=== PATIENT | female | born 1940 | race Caucasian/White ===

== ENCOUNTER → 2023-07-27 07:42 | Outpatient (REF) | payer OTHER, SELFPAY ==
[2023-07-27 09:06] LABS: % Basophils 0.9 % (0-2); % Lymphocytes 40.9 % (20.5-51.1); % Monocytes 14.6 % (1.7-9.3); % Neutrophils 43.6 % (42.2-75.2); Absolute Lymphocytes 1.3 10^3/uL (1.2-3.4); Absolute Monocytes 0.5 10^3/uL (0.1-0.6); Absolute Neutrophils 1.4 10^3/uL (1.4-6.5); Hematocrit 30.1 % (37.0-47.0); Hemoglobin 9.8 g/dL (12.0-16.0); Mean Corp Hgb Conc. 32.6 g/dL (33.0-37.0); Mean Corpuscular Hgb 30.3 pg (27.0-31.0); Mean Corpuscular Volume 93.2 fL (81.0-99.0); Nucleated Red Blood Cells % 0 %; Platelet Count 129 10^3/uL (130-400); Red Blood Cell Count 3.23 10^6/uL (4.20-5.40); Red Cell Dist. Width 17.2 % (11.5-14.5); White Blood Cell Count 3.2 10^3/uL (4.8-10.8)
== END ==
LOC: REG 07:42
PROVIDERS: ATTENDING PHYSICIAN Internal Medicine Hematology & Oncology; FAMILY PHYSICIAN Student in an Organized Health Care Education/Training Program
DX: D46.9 Myelodysplastic syndrome, unspecified (principal); D72.819 Decreased white blood cell count, unspecified; C91.Z0 Other lymphoid leukemia not having achieved remission
CPT/HCPCS: 36415; 85025

== ENCOUNTER → 2023-08-17 07:28 | Outpatient (REF) | payer OTHER, SELFPAY ==
[2023-08-17 08:20] LABS: % Basophils 0.6 % (0-2); % Immature Granulocytes 0.6 % (0-0.5); % Lymphocytes 45.8 % (20.5-51.1); % Monocytes 17.8 % (1.7-9.3); % Neutrophils 35.2 % (42.2-75.2); Absolute Lymphocytes 1.5 10^3/uL (1.2-3.4); Absolute Monocytes 0.6 10^3/uL (0.1-0.6); Absolute Neutrophils 1.2 10^3/uL (1.4-6.5); Hematocrit 33.3 % (37.0-47.0); Hemoglobin 11.3 g/dL (12.0-16.0); Mean Corp Hgb Conc. 33.9 g/dL (33.0-37.0); Mean Corpuscular Hgb 30.6 pg (27.0-31.0); Mean Corpuscular Volume 90.2 fL (81.0-99.0); Mean Platelet Volume 9.6 fL (7.4-10.4); Nucleated Red Blood Cells % 0 %; Platelet Count 127 10^3/uL (130-400); Red Blood Cell Count 3.69 10^6/uL (4.20-5.40); Red Cell Dist. Width 16.7 % (11.5-14.5); White Blood Cell Count 3.3 10^3/uL (4.8-10.8)
[2023-08-17 09:15] LABS: ALT (SGPT) 18 U/L (0-35); AST (SGOT) 34 U/L (14-36); Alkaline Phosphatase 58 U/L (38-126); Blood Urea Nitrogen 20 mg/dl (7-17); Calcium 8.9 mg/dl (8.4-10.2); Carbon Dioxide 28 mmol/L (22-30); Chloride 104 mmol/L (98-107); Glucose 113 mg/dl (70-99); Potassium 4.1 mmol/L (3.5-5.1); Sodium 137 mmol/L (135-145); Total Bilirubin 1.5 mg/dl (0.2-1.3); Total Protein 6.9 g/dl (6.3-8.2); eGFR > 60.00
== END ==
LOC: REG 07:28
PROVIDERS: ATTENDING PHYSICIAN Internal Medicine Hematology & Oncology; FAMILY PHYSICIAN Student in an Organized Health Care Education/Training Program
DX: D72.819 Decreased white blood cell count, unspecified (principal); D46.9 Myelodysplastic syndrome, unspecified; C91.Z0 Other lymphoid leukemia not having achieved remission
CPT/HCPCS: 36415; 80053; 85025

== ENCOUNTER → 2023-09-07 07:29 | Outpatient (REF) | payer OTHER, SELFPAY ==
[2023-09-07 08:56] LABS: % Basophils 0.8 % (0-2); % Immature Granulocytes 0.8 % (0-0.5); % Lymphocytes 33.5 % (20.5-51.1); % Monocytes 15.4 % (1.7-9.3); % Neutrophils 49.5 % (42.2-75.2); Absolute Lymphocytes 1.3 10^3/uL (1.2-3.4); Absolute Monocytes 0.6 10^3/uL (0.1-0.6); Absolute Neutrophils 1.9 10^3/uL (1.4-6.5); Hematocrit 37.6 % (37.0-47.0); Mean Corp Hgb Conc. 31.9 g/dL (33.0-37.0); Mean Corpuscular Hgb 29.9 pg (27.0-31.0); Mean Corpuscular Volume 93.8 fL (81.0-99.0); Mean Platelet Volume 9.8 fL (7.4-10.4); Nucleated Red Blood Cells % 0 %; Platelet Count 141 10^3/uL (130-400); Red Blood Cell Count 4.01 10^6/uL (4.20-5.40); Red Cell Dist. Width 16.3 % (11.5-14.5); White Blood Cell Count 3.8 10^3/uL (4.8-10.8)
[2023-09-07 09:26] LABS: ALT (SGPT) 21 U/L (0-35); AST (SGOT) 38 U/L (14-36); Albumin 4.1 g/dl (3.5-5.0); Alkaline Phosphatase 57 U/L (38-126); Blood Urea Nitrogen 14 mg/dl (7-17); Calcium 9.4 mg/dl (8.4-10.2); Carbon Dioxide 32 mmol/L (22-30); Chloride 103 mmol/L (98-107); Glucose 123 mg/dl (70-99); Potassium 4.5 mmol/L (3.5-5.1); Sodium 140 mmol/L (135-145); Total Bilirubin 1.5 mg/dl (0.2-1.3); eGFR 56.25
== END ==
LOC: REG 07:29
PROVIDERS: ATTENDING PHYSICIAN Internal Medicine Hematology & Oncology; FAMILY PHYSICIAN Student in an Organized Health Care Education/Training Program
DX: D72.819 Decreased white blood cell count, unspecified (principal); D46.9 Myelodysplastic syndrome, unspecified; C91.Z0 Other lymphoid leukemia not having achieved remission
CPT/HCPCS: 36415; 80053; 85025

== ENCOUNTER → 2023-09-14 07:42 | Outpatient (REF) | payer OTHER, SELFPAY ==
[2023-09-14 08:16] LABS: % Basophils 0.6 % (0-2); % Immature Granulocytes 0.3 % (0-0.5); % Lymphocytes 37.9 % (20.5-51.1); % Monocytes 13.2 % (1.7-9.3); Absolute Lymphocytes 1.2 10^3/uL (1.2-3.4); Absolute Monocytes 0.4 10^3/uL (0.1-0.6); Absolute Neutrophils 1.5 10^3/uL (1.4-6.5); Hematocrit 35.7 % (37.0-47.0); Hemoglobin 11.7 g/dL (12.0-16.0); Mean Corp Hgb Conc. 32.8 g/dL (33.0-37.0); Mean Corpuscular Hgb 30.2 pg (27.0-31.0); Mean Corpuscular Volume 92.2 fL (81.0-99.0); Mean Platelet Volume 9.7 fL (7.4-10.4); Nucleated Red Blood Cells % 0 %; Platelet Count 127 10^3/uL (130-400); Red Blood Cell Count 3.87 10^6/uL (4.20-5.40); Red Cell Dist. Width 16.3 % (11.5-14.5); White Blood Cell Count 3.2 10^3/uL (4.8-10.8)
[2023-09-14 09:24] LABS: ALT (SGPT) 18 U/L (0-35); AST (SGOT) 34 U/L (14-36); Albumin 4.1 g/dl (3.5-5.0); Alkaline Phosphatase 53 U/L (38-126); Blood Urea Nitrogen 15 mg/dl (7-17); Calcium 9.3 mg/dl (8.4-10.2); Carbon Dioxide 30 mmol/L (22-30); Chloride 100 mmol/L (98-107); Glucose 118 mg/dl (70-99); Potassium 4.3 mmol/L (3.5-5.1); Sodium 139 mmol/L (135-145); Total Bilirubin 1.2 mg/dl (0.2-1.3); Total Protein 6.9 g/dl (6.3-8.2); eGFR 56.25
== END ==
LOC: REG 07:42
PROVIDERS: ATTENDING PHYSICIAN Internal Medicine Hematology & Oncology; FAMILY PHYSICIAN Student in an Organized Health Care Education/Training Program
DX: D72.819 Decreased white blood cell count, unspecified (principal); D46.9 Myelodysplastic syndrome, unspecified; C91.Z0 Other lymphoid leukemia not having achieved remission
CPT/HCPCS: 36415; 80053; 85025

== ENCOUNTER → 2023-09-21 07:25 | Outpatient (REF) | payer OTHER, SELFPAY ==
[2023-09-21 09:45] LABS: % Basophils 0.6 % (0-2); % Immature Granulocytes 0.3 % (0-0.5); % Lymphocytes 40.2 % (20.5-51.1); % Monocytes 15.6 % (1.7-9.3); % Neutrophils 43.3 % (42.2-75.2); Absolute Lymphocytes 1.3 10^3/uL (1.2-3.4); Absolute Monocytes 0.5 10^3/uL (0.1-0.6); Absolute Neutrophils 1.4 10^3/uL (1.4-6.5); Hematocrit 38.9 % (37.0-47.0); Hemoglobin 12.2 g/dL (12.0-16.0); Mean Corp Hgb Conc. 31.4 g/dL (33.0-37.0); Mean Corpuscular Hgb 29.5 pg (27.0-31.0); Mean Platelet Volume 10.3 fL (7.4-10.4); Nucleated Red Blood Cells % 0 %; Platelet Count 136 10^3/uL (130-400); Red Blood Cell Count 4.14 10^6/uL (4.20-5.40); Red Cell Dist. Width 15.5 % (11.5-14.5); White Blood Cell Count 3.2 10^3/uL (4.8-10.8)
[2023-09-21 10:03] LABS: ALT (SGPT) 20 U/L (0-35); AST (SGOT) 40 U/L (14-36); Albumin 4.3 g/dl (3.5-5.0); Alkaline Phosphatase 51 U/L (38-126); Blood Urea Nitrogen 18 mg/dl (7-17); Calcium 9.3 mg/dl (8.4-10.2); Carbon Dioxide 29 mmol/L (22-30); Chloride 103 mmol/L (98-107); Glucose 126 mg/dl (70-99); Sodium 138 mmol/L (135-145); Total Bilirubin 1.3 mg/dl (0.2-1.3); Total Protein 7.2 g/dl (6.3-8.2); eGFR 56.25
== END ==
LOC: REG 07:25
PROVIDERS: ATTENDING PHYSICIAN Internal Medicine Hematology & Oncology; FAMILY PHYSICIAN Student in an Organized Health Care Education/Training Program
DX: D72.819 Decreased white blood cell count, unspecified (principal); D46.9 Myelodysplastic syndrome, unspecified; C91.Z0 Other lymphoid leukemia not having achieved remission
CPT/HCPCS: 36415; 80053; 85025

== ENCOUNTER → 2023-10-05 07:38 | Outpatient (REF) | payer OTHER, SELFPAY ==
[2023-10-05 08:56] LABS: % Basophils 0.8 % (0-2); % Immature Granulocytes 0.4 % (0-0.5); % Lymphocytes 42.7 % (20.5-51.1); % Monocytes 15.8 % (1.7-9.3); % Neutrophils 40.3 % (42.2-75.2); Absolute Lymphocytes 1.1 10^3/uL (1.2-3.4); Absolute Monocytes 0.4 10^3/uL (0.1-0.6); Absolute Neutrophils 1.1 10^3/uL (1.4-6.5); Hematocrit 35.4 % (37.0-47.0); Hemoglobin 11.7 g/dL (12.0-16.0); Mean Corp Hgb Conc. 33.1 g/dL (33.0-37.0); Mean Corpuscular Hgb 30.1 pg (27.0-31.0); Nucleated Red Blood Cells % 0 %; Platelet Count 125 10^3/uL (130-400); Red Blood Cell Count 3.89 10^6/uL (4.20-5.40); Red Cell Dist. Width 15.1 % (11.5-14.5); White Blood Cell Count 2.6 10^3/uL (4.8-10.8)
[2023-10-05 10:27] LABS: ALT (SGPT) 22 U/L (0-35); AST (SGOT) 39 U/L (14-36); Albumin 4.3 g/dl (3.5-5.0); Alkaline Phosphatase 52 U/L (38-126); Blood Urea Nitrogen 20 mg/dl (7-17); Calcium 9.4 mg/dl (8.4-10.2); Carbon Dioxide 29 mmol/L (22-30); Chloride 103 mmol/L (98-107); Glucose 110 mg/dl (70-99); Potassium 4.3 mmol/L (3.5-5.1); Sodium 138 mmol/L (135-145); Total Bilirubin 1.2 mg/dl (0.2-1.3); Total Protein 7.3 g/dl (6.3-8.2); eGFR > 60.00
== END ==
LOC: REG 07:38
PROVIDERS: ATTENDING PHYSICIAN Internal Medicine Hematology & Oncology; FAMILY PHYSICIAN Student in an Organized Health Care Education/Training Program
DX: D72.819 Decreased white blood cell count, unspecified (principal); D46.9 Myelodysplastic syndrome, unspecified; C91.Z0 Other lymphoid leukemia not having achieved remission
CPT/HCPCS: 36415; 80053; 85025

== ENCOUNTER → 2023-11-01 07:11 | Outpatient (REF) | payer OTHER, SELFPAY ==
[2023-11-01 08:42] LABS: Hematocrit 32.2 % (37.0-47.0); Hemoglobin 10.8 g/dL (12.0-16.0); Mean Corp Hgb Conc. 33.5 g/dL (33.0-37.0); Mean Corpuscular Hgb 29.3 pg (27.0-31.0); Mean Corpuscular Volume 87.5 fL (81.0-99.0); Mean Platelet Volume 10.5 fL (7.4-10.4); Platelet Count 108 10^3/uL (130-400); Red Blood Cell Count 3.68 10^6/uL (4.20-5.40); Red Cell Dist. Width 14.6 % (11.5-14.5); White Blood Cell Count 2.5 10^3/uL (4.8-10.8)
[2023-11-01 09:17] LABS: ALT (SGPT) 36 U/L (0-35); AST (SGOT) 59 U/L (14-36); Albumin 4.1 g/dl (3.5-5.0); Alkaline Phosphatase 55 U/L (38-126); Blood Urea Nitrogen 12 mg/dl (7-17); Calcium 9.4 mg/dl (8.4-10.2); Carbon Dioxide 30 mmol/L (22-30); Chloride 100 mmol/L (98-107); Glucose 115 mg/dl (70-99); Sodium 137 mmol/L (135-145); Total Bilirubin 1.2 mg/dl (0.2-1.3); Total Protein 7.1 g/dl (6.3-8.2); eGFR > 60.00
[2023-11-01 10:42] LABS: Absolute Neutrophils -Man Diff 0.6 10^3/uL (1.4-6.5); Band Neutrophils 2 % (0-3); Lymphocytes 56 % (20-51); Monocytes 17 % (2-9); Platelets Checked Yes; Segmented Neutrophils 24 % (42-75)
[2023-11-01 10:43] LABS: Normal RBC Morphology Yes; Total Cells Counted 100
== END ==
LOC: REG 07:11
PROVIDERS: ATTENDING PHYSICIAN Internal Medicine Hematology & Oncology
DX: D72.819 Decreased white blood cell count, unspecified (principal); D46.9 Myelodysplastic syndrome, unspecified; C91.Z0 Other lymphoid leukemia not having achieved remission
CPT/HCPCS: 36415; 80053; 85025

== ENCOUNTER 2023-11-17 21:53 | Inpatient (IN) | payer OTHER, SELFPAY ==
[2023-11-17 16:42] VITALS: BP 198/80
--- NOTE | 2023-11-17 17:15 | ED.GENMED ---
History of Present Illness
General
Chief Complaint: Chest Pain
Source: patient
Exam Limitations: none
Time Seen by Provider: 11/17/23 17:15
Travel History
Have you had any contact with someone who has COVID-19?: No
Do you have any symptoms of coronavirus? Fever > 100 degrees, chills, cough, shortness of breath, sore throat, loss of taste or smell, muscle aches, or headache?: No
History of Present Illness
History of Present Illness:
83-year-old female with relatively sudden onset of right sided back pain. Started at 1 PM. Nonexertional and nontraumatic. No pleuritic pain no shortness of breath. Nausea associated with this. Denies chest pain shortness of breath or other
complaints. Symptoms are still present. Some bandlike pain across her upper abdomen.
Past History
Past History
ED Past Medical History: HTN, Hypercholesterolemia, Other (right knee replacement) and Other (Chronic low white blood cell count)
ED Past Surgical History: Appendectomy, Gynecological (Tubal ligation, oophorectomy) and Orthopedic (Right total knee replacement, right rotator cuff repair.)
Social History
Tobacco: Non-smoker
Alcohol: Occasional
Drug: None
Personal:
Living: with family
Employment: Retired
Family History
Family History: Other (Noncontributory)
Review of Systems
Review of Systems
All Other Systems: Not applicable
Constitutional: Denies fever
Respiratory: Denies trouble breathing
Cardiac: Denies chest pain
Phy Exam
Physical Exam
Physical Exam:
GENERAL: Alert and oriented in no apparent distress
EYE: Orbits normal.
NECK: Supple, no thyroid palpable
ENT: Pharynx without erythema
CARDIAC: Regular rate and rhythm without any obvious murmurs.
LUNGS: Clear breath sounds,normal
ABDOMEN: Soft, without focal tenderness or distention. No pulsatile mass
NEUROLOGICAL: Alert and oriented , grossly non-focal
SKIN: Warm and dry, no rash or lesion, no discoloration, skin intact.
MUSCULOSKELETAL: No edema,no deformity.Good color
PSYCH: Normal and appropriate interaction.
Scores
Heart Score for Chest Pain Patients
STEMI patient?: No
History: Slightly or Non-Suspicious
ECG: Normal
Age: >/= 65 years
Risk Factors: 1 or 2 Risk Factors
Troponin: </= Normal Limit
Heart Score for Chest Pain Patients: 3
Heart Score Risk: 2.5% MACE over next 6 weeks
Course
Orders/Labs/Results
Orders:
Orders
11/17/23 16:40
Electrocardiogram (*1) Urgent
Reason for Study: Chest Pain
EKG- Treatment ONCE
11/17/23 17:28
Cardiac Monitoring- Treatment ONCE
IV Insert/Care/Rem.- Treatment PRN
Pulse Ox/cont/shift [RESP] Stat
Quantity: 1
11/17/23 17:29
Complete Blood Count/With Diff Urgent
Comprehensive Metabolic Panel Urgent
D-Dimer Urgent
Lipase Urgent
Troponin I Urgent
11/17/23 18:03
CXR2 [CR Chest - 2 Views ] Urgent
Comment:
Reason For Exam: Right back pain
11/17/23 18:23
Urinalysis Reflex To Culture Urgent
Date Specimen was Collected: 11/17/23
Time Specimen was Collected: 18:22
11/17/23 19:27
CT Chest/abd/pelvis Angio W/wo Urgent
Comment:
Reason For Exam: Right mid back pain sudden in nature with radiatio
11/17/23 19:48
EKG- Treatment ONCE
11/17/23 20:20
EKG [Electrocardiogram (*1)] Urgent
Reason for Study: Chest Pain
11/17/23 20:44
Troponin I Urgent
11/17/23 21:15
Piperacillin/Tazo 3.375 Gram [Zosyn] 3.375 gram in 50 ml IV NOW
Abnormal Lab Results
11/17/23 11/17/23
17:29 18:23
WBC 3.5 L 10^3/uL
(4.8-10.8)
RBC 3.60 L 10^6/uL
(4.20-5.40)
Hgb 10.5 L g/dL
(12.0-16.0)
Hct 31.6 L %
(37.0-47.0)
RDW 14.8 H %
(11.5-14.5)
Absolute Lymphs (auto) 0.5 L 10^3/uL
(1.2-3.4)
Neutrophils % 77.9 H %
(42.2-75.2)
Lymphocytes % 14.4 L %
(20.5-51.1)
Glucose 154 H mg/dl
(70-99)
Total Bilirubin 1.5 H mg/dl
(0.2-1.3)
AST 39 H U/L
(14-36)
Urine Ketones Trace A
(Negative)
11/17/23 17:29
11/17/23 17:29
Vital Signs
Initial and Last Documented VS:
Initial Vital Signs
Temp Pulse Resp BP Pulse Ox
98.7 F 53 18 198/80 97
11/17/23 16:42 11/17/23 16:42 11/17/23 16:42 11/17/23 16:42 11/17/23 16:42
Last Documented Vital Signs
Temp Pulse Resp BP Pulse Ox
98.7 F 54 22 166/68 97
11/17/23 16:42 11/17/23 18:30 11/17/23 18:30 11/17/23 18:00 11/17/23 18:30
MDM/Problems Addressed
Differential Diagnosis Includes:
Patient with relatively sudden onset of right back pain. Extends from the mid back down towards her lumbar area. No CVA tenderness. Also some mild bandlike pain across her upper abdomen. There is no pulsatile mass. No shearing pain. No chest
pain. Cleocin clinically looks stable and nontoxic. Large differential including cardiac which is relatively unlikely. EKG is stable. Troponin pending. They will be repeated in 3 hours. Gallbladder is theoretically on the list although she has
absolutely no right upper quadrant tenderness. LFTs and lipase pending. Kidney stone will be on the list. PE and dissection on the list although relatively low on the list. D-dimer is normal. Somewhat reluctant to do a CT angiography given her
myelodysplastic disease however this will be reevaluated when all her other testing is back
*Radiology
Radiology exam reviewed: radiology read reviewed (Acute cholecystitis. Coronary artery calcification)
*Pulse Oximetry
Patient hypoxic: no
*EKG
Interpreted by ED Provider?: Yes
Interpretation: abnormal
Heart Rate: 53
Rate: bradycardiac
Rhythm: sinus
Reading: left axis deviation
Interval: normal interval
QRS Pattern: left vent hypertrophy
Ischemia: non-specific ST changes
*Critical Care Note
Total Time (30-74mins, 75-104mins- exclusive of procedures): Not Applicable
Data Reviewed
Review of Other/Old Records Reveals: Labs, Records and Testing
Update Note
Update Note:
Patient with acute cholecystitis. Biotics and admission. Repeat EKG stable
ED Attending Note
-
Portions of this chart may have been created with voice recognition software.� Occasional wrong word or��sound alike� substitutions may have occurred due to the inherent limitations of voice recognition software.
Discharge Plan
Departure
Patient Disposition: Admit
Date of Disposition: 11/17/23
Time of Disposition: 21:17
Presentation/result/management discussed w/ accepting MD/DO: Hospitalist
Discharge Problem:
Acute cholecystitis
Prescriptions:
No Action
Advanced Stress Tabs
1 tab PO DAILY
lovastatin 20 MG tablet
20 mg PO DAILY
atenolol 50 MG tablet
50 mg PO DAILY
calcium citrate-vitamin D3 [Citracal + D Maximum] 1 EACH tablet
1 ea PO Daily
valacyclovir 500 mg Tablet
1,000 mg PO BID Qty: 18 0RF
Mag&Al/Sim/Diphenhyd/Lidocaine [First-Mouthwash Blm Suspension]
5 ml PO QIDPRN PRN (Reason: sore mouth) Qty: 200 0RF
Referrals:
Yg Scott DO [Family Provider] -
Interventions
Interventions:
*Risk Screen - Suicide Last Done: 11/17/23 17:21
*General Assessment Last Done: 11/17/23 17:21
*Neglect/Abuse Screening Last Done: 11/17/23 17:21
ED- Fall Risk Assessment Last Done: 11/17/23 17:21
*ED COVID-19 Vaccine History Last Done: 11/17/23 16:42
ED- Cardiac Assessment Last Done: 11/17/23 17:21
Discharge Date and Time
Print Language: MONGOLIAN
[2023-11-17 17:26] VITALS: BP 188/73
[2023-11-17 17:48] LABS: % Basophils 0.3 % (0-2); % Immature Granulocytes 0.3 % (0-0.5); % Lymphocytes 14.4 % (20.5-51.1); % Monocytes 7.1 % (1.7-9.3); % Neutrophils 77.9 % (42.2-75.2); Absolute Lymphocytes 0.5 10^3/uL (1.2-3.4); Absolute Monocytes 0.3 10^3/uL (0.1-0.6); Absolute Neutrophils 2.8 10^3/uL (1.4-6.5); Hematocrit 31.6 % (37.0-47.0); Hemoglobin 10.5 g/dL (12.0-16.0); Mean Corp Hgb Conc. 33.2 g/dL (33.0-37.0); Mean Corpuscular Hgb 29.2 pg (27.0-31.0); Mean Corpuscular Volume 87.8 fL (81.0-99.0); Mean Platelet Volume 9.4 fL (7.4-10.4); Nucleated Red Blood Cells % 0 %; Platelet Count 145 10^3/uL (130-400); Red Cell Dist. Width 14.8 % (11.5-14.5); White Blood Cell Count 3.5 10^3/uL (4.8-10.8)
[2023-11-17 17:59] LABS: D-Dimer 0.48 ug/mlFEU (0.00-0.50)
[2023-11-17 18:00] VITALS: BP 166/68
[2023-11-17 18:01] LABS: ALT (SGPT) 22 U/L (0-35); AST (SGOT) 39 U/L (14-36); Albumin 4.1 g/dl (3.5-5.0); Alkaline Phosphatase 61 U/L (38-126); Blood Urea Nitrogen 17 mg/dl (7-17); Carbon Dioxide 28 mmol/L (22-30); Chloride 104 mmol/L (98-107); Glucose 154 mg/dl (70-99); Potassium 4.4 mmol/L (3.5-5.1); Sodium 140 mmol/L (135-145); Total Bilirubin 1.5 mg/dl (0.2-1.3); Total Protein 7.4 g/dl (6.3-8.2); eGFR > 60.00
[2023-11-17 18:12] LABS: Troponin I < 0.012 ng/ml
[2023-11-17 18:15] LABS: Lipase 82 U/L (23-300)
[2023-11-17 18:46] LABS: Urine Albumin Negative (Neg - Trace); Urine Bilirubin Negative (Negative); Urine Character Clear (Clear); Urine Color Yellow; Urine Glucose Negative (Negative); Urine Ketone Trace (Negative); Urine Leukocyte Negative (Negative); Urine Nitrite Negative (Negative); Urine Occult Blood Negative (Negative); Urine Specific Gravity 1.015 (<1.030); Urine Urobilinogen Negative (Neg - 1+)
[2023-11-17 20:00] VITALS: BP 173/65
--- NOTE | 2023-11-17 21:16 | HPS.HSE ---
Addendum entered and electronically signed by Moris Fofana MD 11/18/23 09:25:
I saw and examined the patient independently.
The Director Medical Economics's note was reviewed and I agree with the note, assessment and plan except where noted below.
Comment: This is an 83-year-old female with history of MDS, who presents with sudden onset of right upper quadrant/right side abdominal pain with associated nausea and vomiting, low-grade temp here. She is tender to palpation in the right upper
quadrant. She has a mildly elevated bilirubin as well as a elevated WBC from her baseline of 2-[address] scan with dilated, thickened gallbladder wall as well as stones in the neck of the gallbladder all concerning for acute cholecystitis.
N.p.o., IV fluids, IV antibiotics.
Risks/Benefits/Alternatives, expected postoperative course and possible complications (bleeding, infection, injury to surrounding structures, acute/chronic pain) discussed at length with patient and the family. All questions answered. Consent
obtained, but they are going to discuss with family their final plan before moving forward with surgery definitively.
I spent roughly 75 minutes in total for the care of this patient today including direct patient care and counseling, reviewing labs, imaging, coordination of care, as well as documentation.
Original Note:
Family Physician
-
Family Physician: Yg Scott, DO
Chief Complaint
-
abdominal pain
History of Present Illness
83-year-old female with past medical history of hypertension, hyperlipidemia relatively sudden onset of right sided back pain radiating to her middle back and underneath the breast/epigastric area. she vomited once. she just got over COVID. finished
the course of paxlovid. denied fever, chills, chest pain, sob. denied WAGNER, dizzy or syncopal episode. denied dysuria or hematuria.
CT highly suspicious for acute cholecystitis. Zosyn in ER admitting for further management
Medical History
Past Medical History
Past Medical History: Reports Other
Additional Past Medical History:
Hypertension
Lumbar radiculopathy
Hyperlipidemia
Leukopenia right shoulder arthritis
Osteoporosis
Anxiety
Myelodysplastic syndrome
Past Surgical History: Reports Other
Additional Past Surgical History:
Total knee replacement bilateral
Appendectomy
Right shoulder repair
Social History
Tobacco: Non-smoker
Alcohol: None
Drug: None
Family History
Family History: Not pertinent
Allergies / Home Medications
Allergies reflects when Allergies were last updated in [facility].
Home Medications with original date entered in [facility]
Allergy/Medication List:
Allergies
Allergy/AdvReac Type Severity Reaction Status Date / Time
morphine AdvReac projectile Verified 06/20/23 09:08
vomiting;just
didn't
feel right
Home Medications
Advanced Stress Tabs 1 tab PO DAILY Supplement 02/25/15
atenolol 50 mg tablet 50 mg PO DAILY Blood Pressure 02/25/15
lovastatin 20 mg tablet 20 mg PO DAILY High Cholesterol 02/25/15
calcium citrate 315 mg calcium-vitamin D3 6.25 mcg (250 unit) tablet (Citracal + Vitamin D Maximum) 1 ea PO Daily Supplement 06/24/18
Mag&Al/Sim/Diphenhyd/Lidocaine [First-Mouthwash Blm Suspension] 5 ml PO QIDPRN PRN sore mouth #200 mL 06/26/23
valacyclovir 500 mg tablet 1,000 mg (2 x 500 mg) PO BID #18 tabs 06/26/23
Review of Systems
-
Constitutional: Reports No Symptoms
EENT: Reports No Symptoms
Respiratory: Reports No Symptoms
Cardiac: Reports No Symptoms
Abdomen/GI: Reports Abdominal Pain, Nausea and Vomiting
: Reports No Symptoms
Musculoskeletal: Reports No Symptoms
Skin: Reports No Symptoms
Neurological: Reports No Symptoms
Endocrine: Reports No Symptoms
Hematologic/Lymphatic: Reports No Symptoms
Psych: Reports No Symptoms
Physical Exam
Vital Signs
Vital Signs
Temp Pulse Resp BP Pulse Ox
98.7 F 54 22 166/68 97
11/17/23 16:42 11/17/23 18:30 11/17/23 18:30 11/17/23 18:00 11/17/23 18:30
Physical Exam
General: Well Developed, Well Nourished and No Apparent Distress
HEENT: NormoCephalic, Moist mucous membranes and Atraumatic
Respiratory: Clear
Cardiac: S1/S2 and Regular Rhythm; No Murmur or Rub
GI: Soft, Non Tender, Non Distended and Normal Bowel Sounds; No Organomegaly
Rectal: Deferred by Provider
Musculoskeletal: No Clubbing, No Cyanosis and No Edema
Skin: No Rash
Neuro: AO x 3 and Nonfocal/grossly intact
Psych: Calm
Laboratory Results
-
11/17/23 17:29
11/17/23 17:29
Laboratory Results
Total Bilirubin 1.5 mg/dl (0.2-1.3) H 11/17/23 17:29
AST 39 U/L (14-36) H 11/17/23 17:29
ALT 22 U/L (0-35) 11/17/23 17:29
Alkaline Phosphatase 61 U/L (38-126) 11/17/23 17:29
Troponin I < 0.012 ng/ml 11/17/23 17:29
Lipase 82 U/L (23-300) 11/17/23 17:29
Data Reviewed
-
Lab Data: Labs Reviewed by me
Impression/Plan
-
#acute cholecystitis
-NPO
-Zosyn continued
-surgery consulted
-chest abdomen pelvis CTA pending
-chest x ray No acute cardiopulmonary process.
-Dilaudid as needed for pain
-Zofran as needed for nausea vomiting
-Fluids continued for hydration
#anemia of chronic disease
-hgb 10.5
-no active bleeding
-ctm
# History of MDS
-WBC stable at 3.5
# Essential hypertension
-Hold atenolol
# Hypercholesterolemia
-hold statin
Full code
DVT prophylaxis: scd
[2023-11-17 21:17] LABS: Troponin I 0.013 ng/ml
--- NOTE | 2023-11-17 21:36 | W.PN.UPDATE ---
Update Note
Progress Note Update
This note serves as an addendum to the H&P by public health engineer ROBERT Roya HICKS
HPI
83F HX HTN, HLD, MDS see at ER for evaluation for abrupt onset of R sided uppwer back pain;
R sided upper back pain
Abrupt onset
Described as bandlike pain across her upper abdomen.
No precipitating event noted
Not exertional
Denied trauma
Denied SoB or pleuritic quality
S/P Covid 2 weeks ago
s/p paxlovid
PHX
Neutropenic fever
MDS with
Chronic, Progressive Leukopenia
Bilateral Lower Extremity Edema
Essential hypertension
Hypercholesterolemia
Rt knee replacement
Allergies
Allergy/AdvReac Type Severity Reaction Status Date / Time
morphine AdvReac projectile Verified 06/20/23 09:08
vomiting;just
didn't
feel right
Home Medications
Advanced Stress Tabs 1 tab PO DAILY Supplement 02/25/15
atenolol 50 mg tablet 50 mg PO DAILY Blood Pressure 02/25/15
lovastatin 20 mg tablet 20 mg PO DAILY High Cholesterol 02/25/15
calcium citrate 315 mg calcium-vitamin D3 6.25 mcg (250 unit) tablet (Citracal + Vitamin D Maximum) 1 ea PO Daily Supplement 06/24/18
Mag&Al/Sim/Diphenyl/Lidocaine [First-Mouthwash Blm Suspension] 5 ml PO QIDPRN PRN sore mouth #200 mL 06/26/23
valacyclovir 500 mg tablet 1,000 mg (2 x 500 mg) PO BID #18 tabs 06/26/23
SHx
Tobacco: Non-smoker
Alcohol: Occasional
Drug: None
Personal:
Living: with family
Employment: Retired
FHX
Noncontributory
Reviewed VS: Afebrile Bradycardic HR 50s on BB BP 198/60 --> 165/68
PE
Gen: Not toxic looking
HEENT: anicteric
Neck: supple
Lungs: CTA
Cor: RRR S1 S2 no ST
Abdomen: Soft, without focal tenderness or distention.
[employer] [facility] OPERATOR: AAO3 NFND
MS: no edema
Psych: appropriate interaction.
Data
WCC 3.5
Hgb 10.5 - baseline hi 10s tp low 11s
DD 0.48
nl BMP
Lipase 82
TB 1.5
AST 39
CXR: No acute cardiopulmonary process.
CT CAP
No evidence of Ao dissection
Cholelithiasis, distended GB. POS PCF and inflammatory stranding. GB hyperemia: Suspect acute cholecystitis
Colonic diverticulosis
ASSESSMENT & PLAN
Suspect acute calculus cholecystitis
TB 1.2
- BCxs
- agree with empiric Zosyn
- NPO and IVF
- IV Dilaudid PRN - hold for AMS
- Anti emetics PRN
- GS consult
Current WCC 3.5 is suspect RELATIVE leucocytosis due to acute calculus cholecystitis
HX chr leucopenia due to MDS
- trend WCC
SB due to beta blockade
Essential hypertension
- held atenolol
Hypercholesterolemia
- held statin
S/p Paxolvid for acute Covid 2 weeks ago
DVT Px: SCD
Code: ful code
IP MS
[2023-11-17] MEDS: ZOSYN 50 IV (22:15)
[2023-11-17 23:00] VITALS: BP 174/69; BMI 26.0
[2023-11-17] MEDS: TYLENOL 650 MG PO (23:20)
[2023-11-17] MEDS: NSS 1000 IV (23:21)
--- NOTE | 2023-11-17 23:33 | PTCARENOTE ---
Pt. arriving from ED to [facility] around 2250 via stretcher and able to walk to room bed with steady gait. Pt. A&Ox3, in NAD, states / abd pain - given medication see MAR - even and unlabored breathing on RA, and VSS with hypertension. Pt. oriented
to room and hospital policies, bed locked and in lowest position, side rails in place, call light and belongings within reach, and questions/concerns addressed at time of assessment.
[2023-11-18] VITALS (9 sets, daily range): BP systolic 112–154; BP diastolic 47–87
[2023-11-18] MEDS: ZOFRAN 4 MG IV (04:31)
[2023-11-18] MEDS: TYLENOL 650 MG PO ×2 (04:37→18:25)
[2023-11-18] MEDS: ZOSYN 50 IV ×3 (05:04→17:31)
[2023-11-18 06:55] LABS: Hematocrit 28.6 % (37.0-47.0); Hemoglobin 9.5 g/dL (12.0-16.0); Mean Corp Hgb Conc. 33.2 g/dL (33.0-37.0); Mean Corpuscular Hgb 29.1 pg (27.0-31.0); Mean Corpuscular Volume 87.7 fL (81.0-99.0); Mean Platelet Volume 10.1 fL (7.4-10.4); Platelet Count 131 10^3/uL (130-400); Red Blood Cell Count 3.26 10^6/uL (4.20-5.40); Red Cell Dist. Width 15.2 % (11.5-14.5); White Blood Cell Count 6.2 10^3/uL (4.8-10.8)
[2023-11-18 07:22] LABS: ALT (SGPT) 22 U/L (0-35); AST (SGOT) 36 U/L (14-36); Albumin 3.6 g/dl (3.5-5.0); Alkaline Phosphatase 52 U/L (38-126); Blood Urea Nitrogen 14 mg/dl (7-17); Calcium 9.1 mg/dl (8.4-10.2); Carbon Dioxide 25 mmol/L (22-30); Chloride 101 mmol/L (98-107); Direct Bilirubin 0.5 mg/dl (0.0-0.4); Estimated Creatinine Clearance 45 ml/min; Glucose 164 mg/dl (70-99); Potassium 3.9 mmol/L (3.5-5.1); Sodium 136 mmol/L (135-145); Total Bilirubin 1.8 mg/dl (0.2-1.3); Total Protein 6.5 g/dl (6.3-8.2); eGFR > 60.00
[2023-11-18] MEDS: NSS 1000 IV ×2 (11:00→18:04)
--- NOTE | 2023-11-18 11:44 | W.PN.HOSP.TC ---
Addendum entered and electronically signed by Willa Cloud MD 11/18/23 12:20:
d/w GI Dr Marie., Given pt going for OR today for gallstone dianne, GI would not be able to perform EGD. Will reconsult GI tmr after OR to address the stomach mass.
Original Note:
Today's Communication/Plan
-
see A/P
Assessment / Plan
Assessment / Plan
HPI: 83-year-old female with past medical history of hypertension, hyperlipidemia; p/w right sided Abd pain with radiation to her middle back. She vomited once. She just got over COVID and finished the course of paxlovid.
CT highly suspicious for acute cholecystitis. Zosyn in ER admitting for further management
A/P:
# acute gallstone cholecystitis
for perc cholecystectomy today by GS
# History of MDS
# anemia of chronic disease
hgb 10.5
no active bleeding
Cont to monitor CBC
# Essential hypertension
resume HEEL SEATER atenolol when able
# Hypercholesterolemia
hold statin
# Incidental finding of gastric mass, slightly increased from prior and highly suspicious for neoplasm.
GI CS for eval of EUS/biopsy
pt will also likely need Onc eval
Full code
DVT prophylaxis: scd
Anticipated Discharge: 24 - 48 hours
Subjective/Interval History
-
Date of Service: November 18, 2023
Objective Data
-
Labs:
Laboratory Results
11/18/23
06:26
WBC 6.2
Hgb 9.5 L
Hct 28.6 L
Plt Count 131
Sodium 136
Potassium 3.9
Chloride 101
Carbon Dioxide 25
BUN 14
Creatinine 0.8
Glucose 164 H
Calcium 9.1
Total Bilirubin 1.8 H
AST 36
ALT 22
Alkaline Phosphatase 52
Vital Signs:
Vital Signs
Temp Pulse Resp BP Pulse Ox
37.8 C 61 18 131/54 96
11/18/23 07:48 11/18/23 07:48 11/18/23 07:48 11/18/23 07:48 11/18/23 07:48
I&O
11/17/23 11/18/23 11/19/23
06:59 06:59 06:59
Intake Total 1170 / 1170
Balance 1170 / 1170
Review of Systems
-
Abdomen/GI: Reports Abdominal Pain (RUQ)
Physical Exam
-
General: Well Developed, Well Nourished, No Apparent Distress, Comfortable and Conversant; Negative Respiratory Distress
HEENT: Normocephalic, Atraumatic, Nose Appears Normal and Ears Appear Normal; Negative Oxygen
Respiratory: Clear to Auscultation and Non Labored Respirations; Negative Accessory Resp Muscle Use
Cardiac: Regular Rhythm and S1/S2
GI: Soft, Nondistended, Normal Bowel Sounds and Tender (Mild, RUQ)
Skin: Warm and Dry
Neuro: Awake and Alert
Psych: Calm and Intact Judgement/Insight
Data Reviewed
-
CT Scan: Report Reviewed by me and Discussed with Patient
Labs: Labs Reviewed by me
--- NOTE | 2023-11-18 11:45 | W.SUR.PREOP ---
Pre-Operative Surgical Note
-
I have examined this patient prior to the performance of the scheduled procedure.
The patient's condition is unchanged from the time of the current History and
Physical and the patient is able to undergo the scheduled procedure.
After further discussion with the patient and family, patient now amenable to surgery. Will move forward with cholecystectomy today.
--- NOTE | 2023-11-18 14:07 | PTCARENOTE ---
Patient transported to OR for laparoscopic cholecystectomy
--- NOTE | 2023-11-18 17:09 | W.IMMPOSTOP ---
Surgical Immed Post Op Note
-
Primary Surgeon: Moris Fofana MD
Assisting Surgeon: None
Pre-op Diagnosis: Acute cholecystitis
Post-op Diagnosis: Gangrenous cholecystitis, choledocholithiasis
Procedure Performed:
1. Laparoscopic lysis of adhesions
2. Laparoscopic cholecystectomy with cholangiogram
Anesthesia Type: General
Specimen / Cultures: Gallbladder and contents
Estimated Blood Loss: 23 cc
Complications: None
Operative Findings: Acute gangrenous cholecystitis. Performed a top-down cholecystectomy. No definitive cystic artery identified. The cystic duct was cannulated with a cholangiocatheter and IOC was performed. Normal biliary anatomy, diminutive,
tortuous cystic duct, dilated CBD with 2 large filling defects consistent with choledocholithiasis. These appeared to be nonocclusive as there was free flow of contrast into the duodenum. A 19 [place] round Ellis drain was placed in the right upper
quadrant. Surgiflo was used along the gallbladder bed to assist with hemostasis.
POST OP PLAN:
Imaging: None
Labs: Routine AM
Diet: Okay for clears, n.p.o. at midnight for possible ERCP tomorrow. Will place GI consult.
Analgesia: Tylenol 650mg q6 Isela, Alana 5mg q6 PRN, Dilaudid 0.5mg q2h PRN
Neuro/vascular checks: q4h
AC/AP: Hold Therapeutic AC, Ok for DVT PPx
Activity: Ad Cony
Wound/Incisions/Drains: Routine, FRANK to bulb suction.
Abx: Continue antibiotics x 7 days.
Dispo: RNF
--- NOTE | 2023-11-18 17:41 | SUR.PHASEI ---
patient received sleepy but restless, vss, temp down from preop. skin very warm and dry, throws covers off, wants to get up. reoriented to time and place, seems to understand but tries to get OOB again. now at 1742 - sleeps comfortably, softwick
dressing applied around FRANK drain for small amount of bloody drainage. Ice pack to abd for comfort. patient came from OR with incontinent diaper - dry currently
--- NOTE | 2023-11-18 17:47 | OR.RPT ---
Operative Report
Operative Report
Patient Name: Rufina Melendez
: 1940
Date of Operation: 11/18/2023
Preoperative Diagnosis: Acute cholecystitis
Postoperative Diagnosis: Gangrenous cholecystitis, choledocholithiasis
Procedure(s):
Laparoscopic lysis of adhesions
Laparoscopic Cholecystectomy with Cholangiogram
Surgeon(s):
Dr. Fofana
Latent Fingerprint Examiner(s):
None
Anesthesia: General
Estimated Blood Loss: 23 cc
Urine Output: None
Drains/Lines/Implants: None
Specimens:
1. Gallbladder and contents
HPI/Surgical Indications:
This is an 83-year-old female with a history of mild dysplastic syndrome who presented to our ER with a 1 day history of right upper quadrant abdominal pain in the setting of a recent COVID infection. Exam, labs and imaging are consistent with acute
cholecystitis. Risks/Benefits/Alternatives were discussed at length, and the patient agreed to proceed with surgery.
Operative Findings: Acute gangrenous cholecystitis. Performed a top-down cholecystectomy. No definitive cystic artery identified. The cystic duct was cannulated with a cholangiocatheter and IOC was performed. Normal biliary anatomy, diminutive,
tortuous cystic duct, dilated CBD with 2 large filling defects consistent with choledocholithiasis. These appeared to be nonocclusive as there was free flow of contrast into the duodenum. A 19 Kiswahili round Ellis drain was placed in the right upper
quadrant. Surgiflo was used along the gallbladder bed to assist with hemostasis.
Procedure Description:
The patient was brought to the Operating Room and placed in the supine position with one arm tucked. Following uneventful induction of general endotracheal anesthesia, an orogastric tube was placed. The abdomen was prepped and draped in the usual
sterile fashion. A timeout was performed confirming the procedure, consent, and that IV antibiotics were infused and sequential compression devices were confirmed to be on. The abdomen was entered using a left subcostal Veress technique which
required 1 pass followed by the right periumbilical 11 mm Optiview trocar. Pneumoperitoneum to 15 mmHg pressure was obtained without difficulty. The patient was positioned in reverse Trendelenberg and rotated with the right side up slightly. There
were some unexpected adhesions between the omentum and the anterior abdominal wall particularly in the left upper quadrant which obscured our review of the left upper quadrant Veress entry site. These were taken down with LigaSure energy device.
The needle entry site was identified and no inadvertent injury was seen. The stomach otherwise looked normal. We then turned our attention to the gallbladder which looked frankly necrotic with patchy areas of green and black over the anterior
surface. 2 5mm trocars were then placed along the right subcostal margin, followed by a 12 mm epigastric port. The gallbladder was emptied using a decompressing needle through the fundus of the gallbladder with evacuation of hydrops before A
locking grasping forceps was placed on the fundus of the gallbladder where it was then retracted cephalad and to the right. Using appropriate grasping instruments, the peritoneum overlying the triangle of Calot was incised and extended superiorly on
both the anterior and posterior gallbladder milligan. There was a significant inflammation in the cystic triangle but we were able to extend our medial/anterior peritoneal flap cephalad and get into the space between the gallbladder and the cystic
bed. We then did a top-down cholecystectomy staying close to the gallbladder down to the infundibulum. The cystic duct was identified but no cystic artery was. An Endoloop was passed around the gallbladder and ligated proximally. A ductotomy was
made and a cholangiocatheter on an Nguyen clamp was inserted into the cystic duct. A C-arm was draped and brought into the field. An intra-operative cholangiogram was performed and was noted to have:
2 large nonocclusive filling defects in the distal biliary tree
Some mild CBD/biliary dilation
Brisk flow of contrast into the duodenum
Normal biliary anatomy
The catheter was then removed and the cystic duct was controlled with an additional 0 PDS Endoloop and divided. The gallbladder was freed from the liver using electrocautery. There was some spillage of bile, black stones but these were all
removed. A 4 x 4 gauze sponge was also placed into the abdomen to help with collecting entrapping the bile and stones. This was removed. The gallbladder bed was inspected and excellent hemostasis was obtained, with the help of some Surgiflo. The
gallbladder was extracted through the 12 mm trocar site using an endocatch bag. The abdomen was again irrigated and excellent hemostasis was assured. A 19 Kiswahili round Ellis drain was then introduced through the right most lateral port and passed
across the liver bed. This was secured to the skin with a 2-0 nylon suture. All remaining trocars were then removed and the pneumoperitoneum was evacuated. The 12 and 11 mm trocar sites was closed using 0 PDS suture. All trocar sites were closed
at the skin level using 4-0 Monocryl followed by Dermabond. Overall, the patient tolerated the procedure well and was taken to the Recovery Room postoperatively in stable condition.
I was the attending physician and performed the procedure with no assistance. I was present for all portions of the case
Moris Fofana MD
--- NOTE | 2023-11-18 18:18 | PTCARENOTE ---
Received patient from PACU in bed; Surgical site assessed with ROTOFORMER BACKTENDER; FRANK drain to bulb suction RLQ, sanguinous output; Three lap sites and one puncture site, open to air with glue; Ice pack to abdomen currently; Patient denies pain; Patient denies
nausea/vomiting; Patient alert to self, place, and time; Verbalized understanding to utilize call proctor, verbalized understanding to not get up without assistance following surgery; IVF infusing; Patient on 2L NC; Bed in lowest position, wheels
locked; Call proctor within reach; Assessment ongoing
[2023-11-18] MEDS: DILAUDID 0.5 MG IV (19:56)
[2023-11-19] MEDS: ZOSYN 50 IV ×5 (00:12→23:25)
[2023-11-19 06:00] LABS: % Basophils 0.2 % (0-2); % Immature Granulocytes 0.5 % (0-0.5); % Monocytes 6.7 % (1.7-9.3); % Neutrophils 83.6 % (42.2-75.2); Absolute Lymphocytes 0.6 10^3/uL (1.2-3.4); Absolute Monocytes 0.4 10^3/uL (0.1-0.6); Absolute Neutrophils 5.1 10^3/uL (1.4-6.5); Hematocrit 26.5 % (37.0-47.0); Hemoglobin 8.8 g/dL (12.0-16.0); Mean Corp Hgb Conc. 33.2 g/dL (33.0-37.0); Mean Corpuscular Hgb 29.3 pg (27.0-31.0); Mean Corpuscular Volume 88.3 fL (81.0-99.0); Mean Platelet Volume 10.5 fL (7.4-10.4); Nucleated Red Blood Cells % 0 %; Platelet Count 122 10^3/uL (130-400); White Blood Cell Count 6.1 10^3/uL (4.8-10.8)
[2023-11-19] MEDS: NSS 1000 IV (06:13)
[2023-11-19 06:34] LABS: ALT (SGPT) 37 U/L (0-35); AST (SGOT) 44 U/L (14-36); Albumin 3.3 g/dl (3.5-5.0); Alkaline Phosphatase 47 U/L (38-126); Blood Urea Nitrogen 14 mg/dl (7-17); Calcium 8.6 mg/dl (8.4-10.2); Carbon Dioxide 29 mmol/L (22-30); Chloride 103 mmol/L (98-107); Estimated Creatinine Clearance 40 ml/min; Glucose 149 mg/dl (70-99); Magnesium 2.4 mg/dl (1.6-2.3); Potassium 4.2 mmol/L (3.5-5.1); Sodium 138 mmol/L (135-145); Total Bilirubin 1.5 mg/dl (0.2-1.3); Total Protein 6.3 g/dl (6.3-8.2); eGFR > 60.00
[2023-11-19 07:48] VITALS: BP 111/81
[2023-11-19] MEDS: TYLENOL 650 MG PO (08:15)
[2023-11-19] MEDS: DILAUDID 0.5 MG IV (09:11)
--- NOTE | 2023-11-19 09:12 | W.PN.GS2 ---
Today's Communication / Plan
-
-- NPO for ERCP, GI consulted
-- Pain control: Tylenol and IV Dilaudid PRN, added Tramadol for when taking PO
-- Lovenox for DVT
-- Home medications per primary
Assessment / Plan
-
Patient is an 83 yo F POD#1 s/p laparoscopic cholecystectomy with IOC. Choledocholithiasis found on IOC, GI consulted.
Recovering well. No major postoperative concerns. Choledocholithiasis identified on IOC as detailed above, GI consult noted.
-- NPO for ERCP, GI consulted
-- Pain control: Tylenol and IV Dilaudid PRN, added Tramadol for when taking PO
-- Abx: Zosyn
-- Lovenox for DVT
-- Home medications per primary
Subjective Data
-
Date of Service: November 19, 2023
Reports RUQ discomfort particularly with taking a deep breath. Pain and symptoms different from presentation; back pain on presentation has resolved. No nausea or vomiting. No dizziness or lightheadedness. No fevers. Minimal ambulation.
Objective Data
-
Intake and Output
11/18/23 11/19/23 11/20/23
06:59 06:59 06:59
Intake Total 1170 / 1170 2130 / 2130
Output Total 350 / 350
Balance 1170 / 1170 1780 / 1780
Intake:
Oral fluids 480 / 480 335 / 335
IV fluids (Total) 640 / 640 1645 / 1645
nss 75 / 75
zosyn 50 / 50
IV piggybacks 50 / 50 150 / 150
Output:
Drain Output (Total) 50 / 50
Right Lower Abdomen 50 / 50
Urine, Voided 300 / 300
Other:
Number of approximated MODERATE 2 1
amounts of urine
Number of approximated LARGE 1
amounts of urine
How many times incontinent 1
SMALL amount urine
Number of immeasurable emeses? 1
Vital Signs
Temp Pulse Resp BP Pulse Ox
98.4 F 56 17 111/81 97
11/19/23 07:48 11/19/23 07:48 11/19/23 07:48 11/19/23 07:48 11/19/23 08:00
Lab Results
11/19/23 05:26
11/19/23 05:26
Calcium 8.6 mg/dl (8.4-10.2) 11/19/23 05:26
Magnesium 2.4 mg/dl (1.6-2.3) H 11/19/23 05:26
Total Bilirubin 1.5 mg/dl (0.2-1.3) H 11/19/23 05:26
Direct Bilirubin 0.5 mg/dl (0.0-0.4) H 11/18/23 06:26
AST 44 U/L (14-36) H 11/19/23 05:26
ALT 37 U/L (0-35) H 11/19/23 05:26
Alkaline Phosphatase 47 U/L (38-126) 11/19/23 05:26
Total Protein 6.3 g/dl (6.3-8.2) 11/19/23 05:26
Albumin 3.3 g/dl (3.5-5.0) L 11/19/23 05:26
Physical Exam
-
Gen: NAD
Abd: soft, mild tenderness primarily at FRANK site, ND, non-peritoneal, incisions c/d/i - no erythema, ecchymosis or drainage, FRANK serosang
--- NOTE | 2023-11-19 11:10 | CON.GI ---
Addendum entered and electronically signed by Petrona Natarajan MD 11/19/23 15:00:
I saw and examined the patient.
The CARDIAC RN's note was reviewed and I agree with the note.
Comment: This is a 83-year-old female who presented with symptoms of epigastric and right upper quadrant pain and also recently completed Paxlovid for COVID infection. She was noted to have acute calculus cholecystitis on imaging, also had a fever
and she had a lap cholecystectomy yesterday with IOP cholangiogram which showed CBD stones and we were consulted for ERCP. She was also noted to have an incidental gastric mass slightly increased in size when compared to prior CT in 2022.
Assessment and plan1. acute calculus cholecystitis status post Lap CCY 11/18/2023 continue antibiotics, she does have choledocholithiasis discussed with Dr. Pratt for ERCP in a.m.
2. Also incidental gastric mass noted on CT slightly increased in size from May 2023 will also have EGD prior to ERCP
Addendum entered and electronically signed by YURIY Bhatti 11/19/23 12:11:
updated pt and family plan now for EGD/ERCP tomorrow ok for low fat diet, advised to stop eating if abdominal pain with eating
Original Note:
Consultation
-
Date/Time Consultation Requested: 11/18/23 1715
Date/Time Consultation Performed: 11/18/23 1110
Requesting Provider: Moris Fofana MD
Performing Provider: YURIY Liriano, Petrona Natarajan MD
Reason for Consultation: + intra op cholangiogram, gastirc mass
Medical History
Chief Complaint / HPI
Chief Complaint: abdominal pain
History of Present Illness:
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 CT on admission with
concern for acute calculus cholecystitis and also noted gastric mass slightly increased from prior concern for neoplasm. After admission also noted with fever 102.3. Pt went to OR for lap dianne with lysis of adhesion and but noted with dilated
CBD with 2 large filling defects c/w choledocholithiasis. On admission WBC stable with initial LFT's adry 1.5, AST 39, ALT 22, alk phos 61 then minimal risk to bili 1.5, AST 44, ALT 37, and alk phos 47 after admission.
At this time pt admits to recent back pain and noted fever after admission. She has had some intentional wt loss and recent diarrhea with covid symptoms. She denies dysphagia, GERD, nausea, vomiting, hematemesis, constipation or rectal
bleeding. No prior EGD or colonoscopy in past.
Past Medical History
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
Past Surgical History: Cholecystectomy
Social History
Tobacco: Non-Smoker
Alcohol: Occasional (social )
Drug: None
Living: Alone
Employment: Retired
Family History
Family History: Other (mother with bladder CA, no family hx colon, esophageal, gastric or panc CA)
Allergies / Home Medications
Allergy/AdvReac Type Severity Reaction Status Date / Time
morphine AdvReac projectile Verified 11/17/23 23:48
vomiting;just
didn't
feel right
�Medication �Instructions �Recorded
atenolol 50 mg tablet 50 mg PO DAILY Blood Pressure 02/25/15
lovastatin 20 mg tablet 20 mg PO DAILY High Cholesterol 02/25/15
calcium citrate 315 mg 1 ea PO Daily Supplement 06/24/18
calcium-vitamin D3 6.25 mcg (250
unit) tablet (Citracal + Vitamin D
Maximum)
Review of Systems
-
History Source: Patient
Constitutional: Reports Weight Loss (intentional wt loss )
EENT: Reports No Symptoms
Respiratory: Reports No Symptoms
Cardiac: Reports No Symptoms
Abdomen/GI: Reports Abdominal Pain (still with pain today worse with deep breath ) and Diarrhea (with covid )
Musculoskeletal: Reports Other (back pain, chronic shoulder pain )
Skin: Reports No Symptoms
Neurological: Reports Weakness
Endocrine: Reports No Symptoms
Hematologic/Lymphatic: Reports No Symptoms
Vital Signs
Temp Pulse Resp BP Pulse Ox
98.4 F 56 17 111/81 97
11/19/23 07:48 11/19/23 07:48 11/19/23 07:48 11/19/23 07:48 11/19/23 08:00
Physical Exam
Exam
General: Well Developed, Well Nourished and No Apparent Distress
HEENT: Normocephalic and Anicteric
Respiratory: Clear
Cardiac: Regular Rhythm
GI: Soft, Non Tender and Non Distended
Musculoskeletal: No Clubbing and No Cyanosis
Skin: Warm and Dry
Neuro: Awake, Alert and AO x 3
Psych: Calm
Results
WBC 6.1 10^3/uL (4.8-10.8) 11/19/23 05:26
Hgb 8.8 g/dL (12.0-16.0) L 11/19/23 05:26
Hct 26.5 % (37.0-47.0) L 11/19/23 05:26
MCV 88.3 fL (81.0-99.0) 11/19/23 05:26
Plt Count 122 10^3/uL (130-400) L 11/19/23 05:26
Absolute Neuts (auto) 5.1 10^3/uL (1.4-6.5) 11/19/23 05:26
Sodium 138 mmol/L (135-145) 11/19/23 05:26
Potassium 4.2 mmol/L (3.5-5.1) 11/19/23 05:26
Chloride 103 mmol/L (98-107) 11/19/23 05:26
Carbon Dioxide 29 mmol/L (22-30) 11/19/23 05:26
BUN 14 mg/dl (7-17) 11/19/23 05:26
Creatinine 0.9 mg/dL (0.6-1.0) 11/19/23 05:26
Calcium 8.6 mg/dl (8.4-10.2) 11/19/23 05:26
Total Bilirubin 1.5 mg/dl (0.2-1.3) H 11/19/23 05:26
AST 44 U/L (14-36) H 11/19/23 05:26
ALT 37 U/L (0-35) H 11/19/23 05:26
Alkaline Phosphatase 47 U/L (38-126) 11/19/23 05:26
Lipase 82 U/L (23-300) 11/17/23 17:29
Diagnostic Image Results:
11/17/23 CT Chest/abd/pelvis Angio W/wo
1. No aortic aneurysm or dissection.
2. Findings suggesting acute calculus cholecystitis in the appropriate clinical context.
3. Redemonstration of gastric mass, slightly increased from prior and highly suspicious for neoplasm. Recommend correlation with endoscopy.
Prior GI Procedures:
EGD: none
Colonoscopy: none
Assessment / Plan
-
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 CT on admission with
concern for acute calculus cholecystitis and also noted gastric mass slightly increased from prior concern for neoplasm. After admission also noted with fever 102.3. Pt went to OR for lap dianne with lysis of adhesion and but noted with dilated
CBD with 2 large filling defects c/w choledocholithiasis. On admission WBC stable with initial LFT's adry 1.5, AST 39, ALT 22, alk phos 61 then minimal risk to bili 1.5, AST 44, ALT 37, and alk phos 47 after admission.
-+ IOC with retained CBD stone
-gastric mass noted on CT
-fever after admission
-s/p lap dianne 11/17 for acute calculus cholecystitis
-recent covid with Paxlovid treatment
other medical problems:
-MDS
-Tcell LGL
-HTN
-hypercholesterolemia
-chronic shoulder pain b/l
PLAN:
Etiology of symptoms with concern for CBD stones
plan for ERCP later today--reviewed risks and benefits including risk of bleeding, infection, perforation, reaction to medication and pancreatitis
also reviewed CT with concern for gastric mass- will add on EGD and sent message to Dr. Pratt to review
NPO
cont abx with recent fever
daughter updated at bedside
trend LFT's
will follow
-
-
Thank you for consultation and allowing me to participate in the patient's care. Please call the movie projectionist GI physician during the after hours with any questions or concerns.
--- NOTE | 2023-11-19 11:41 | W.PN.HOSP.TC ---
Today's Communication/Plan
-
see A/P
Assessment / Plan
Assessment / Plan
HPI: 83-year-old female with past medical history of hypertension, hyperlipidemia; p/w right sided Abd pain with radiation to her middle back. She vomited once. She just got over COVID and finished the course of paxlovid.
CT highly suspicious for acute cholecystitis. Zosyn in ER admitting for further management
A/P:
# acute gallstone cholecystitis
s/p perc cholecystectomy 11/17 by GS
cont abd drain per surgery
DVT ppx with Lovenox SQ
# History of MDS
# anemia of chronic disease
# Acute blood loss anemia from OR
hgb today at 8.8 from 10.5 on admission
Cont to monitor CBC
no active bleeding
# Essential hypertension
resume CHRISTIAN SCIENCE PRACTITIONER atenolol when able
# Hypercholesterolemia
hold statin
# Incidental finding of gastric mass, slightly increased from prior and highly suspicious for neoplasm.
GI CS , possible ERCP
pt might also need Onc eval
Full code
DVT prophylaxis: lovenox SQ
DW daughter at bedside
Anticipated Discharge: 24 - 48 hours
Subjective/Interval History
-
Date of Service: November 19, 2023
Objective Data
-
Labs:
Laboratory Results
11/19/23 11/19/23
05:26 11:39
WBC 6.1
Hgb 8.8 L
Hct 26.5 L
Plt Count 122 L
PT Pending
INR Pending
Sodium 138
Potassium 4.2
Chloride 103
Carbon Dioxide 29
BUN 14
Creatinine 0.9
Glucose 149 H
Calcium 8.6
Total Bilirubin 1.5 H
AST 44 H
ALT 37 H
Alkaline Phosphatase 47
Vital Signs:
Vital Signs
Temp Pulse Resp BP Pulse Ox
36.9 C 56 17 111/81 97
11/19/23 07:48 11/19/23 07:48 11/19/23 07:48 11/19/23 07:48 11/19/23 08:00
I&O
11/18/23 11/19/23 11/20/23
06:59 06:59 06:59
Intake Total 1170 / 1170 2130 / 2130
Output Total 350 / 350
Balance 1170 / 1170 1780 / 1780
Review of Systems
-
All other systems: Reviewed and negative
Physical Exam
-
General: Well Developed, Well Nourished, No Apparent Distress, Comfortable and Conversant; Negative Respiratory Distress
HEENT: Normocephalic, Atraumatic, Nose Appears Normal and Ears Appear Normal; Negative Oxygen
Respiratory: Clear to Auscultation and Non Labored Respirations; Negative Accessory Resp Muscle Use
Cardiac: Regular Rhythm and S1/S2
GI: Soft, Nondistended, Normal Bowel Sounds and Other (RUQ with drain)
Skin: Warm and Dry
Neuro: Awake and Alert
Psych: Calm and Intact Judgement/Insight
Data Reviewed
-
CT Scan: Report Reviewed by me and Discussed with Patient
Labs: Labs Reviewed by me
[2023-11-19 12:20] LABS: INR 1.38; PT 16.8 Sec (11.4-14.6)
--- NOTE | 2023-11-19 15:04 | CM ---
CM met with pt bedside (HUGHES)
Pt resides alone in a split level home, [address], 7 steps up to main bedroom/bathroom
Pt is independent with her ADLs without any ADs, drives+
Pt has a SPC from prior knee surgeries available for use if needed
PCP- Yg Scott
Rx- Juan Luis
POD#1 lap dianne
Plan for ERCP tomorrow
CM will continue to follow for dc planning
Discharge Disposition- home, follow for possible VN needs as pt resides alone
[2023-11-19 15:17] VITALS: BP 118/53
[2023-11-19] MEDS: LOVENOX 40 MG SC (17:02)
[2023-11-19] MEDS: ULTRAM 50 MG PO (21:28)
[2023-11-19 23:00] VITALS: BP 127/56
[2023-11-20] VITALS (7 sets, daily range): BP systolic 30–170; BP diastolic 50–83
[2023-11-20] MEDS: ZOSYN 50 IV ×3 (05:10→21:13)
[2023-11-20 07:46] LABS: Hematocrit 27.8 % (37.0-47.0); Hemoglobin 9.3 g/dL (12.0-16.0); Mean Corp Hgb Conc. 33.5 g/dL (33.0-37.0); Mean Corpuscular Hgb 29.3 pg (27.0-31.0); Mean Corpuscular Volume 87.7 fL (81.0-99.0); Mean Platelet Volume 10.2 fL (7.4-10.4); Platelet Count 144 10^3/uL (130-400); Red Blood Cell Count 3.17 10^6/uL (4.20-5.40); Red Cell Dist. Width 16.2 % (11.5-14.5); White Blood Cell Count 4.3 10^3/uL (4.8-10.8)
[2023-11-20] MEDS: TYLENOL 650 MG PO (08:01)
[2023-11-20 09:03] LABS: ALT (SGPT) 28 U/L (0-35); AST (SGOT) 33 U/L (14-36); Albumin 3.4 g/dl (3.5-5.0); Alkaline Phosphatase 47 U/L (38-126); Blood Urea Nitrogen 18 mg/dl (7-17); Calcium 8.8 mg/dl (8.4-10.2); Carbon Dioxide 25 mmol/L (22-30); Chloride 104 mmol/L (98-107); Estimated Creatinine Clearance 40 ml/min; Glucose 118 mg/dl (70-99); Magnesium 2.3 mg/dl (1.6-2.3); Potassium 4.2 mmol/L (3.5-5.1); Sodium 136 mmol/L (135-145); Total Bilirubin 1.3 mg/dl (0.2-1.3); Total Protein 6.4 g/dl (6.3-8.2); eGFR > 60.00
--- NOTE | 2023-11-20 10:43 | W.PN.HOSP.TC ---
Today's Communication/Plan
-
see A/P
Assessment / Plan
Assessment / Plan
HPI: 83-year-old female with past medical history of hypertension, hyperlipidemia; p/w right sided Abd pain with radiation to her middle back. She vomited once. She just got over COVID and finished the course of paxlovid.
CT highly suspicious for acute cholecystitis. Zosyn in ER admitting for further management
A/P:
# acute gallstone cholecystitis
s/p perc cholecystectomy 11/17 by GS
cont abd drain per surgery
DVT ppx with Lovenox SQ
# History of MDS
# anemia of chronic disease
# Acute blood loss anemia from OR
hgb today at 9.3, from 8.8 yesterday, was at 10.5 on admission
Cont to monitor CBC
no active bleeding
# Essential hypertension
resume STUDENT RECRUITER atenolol when able
# Hypercholesterolemia
hold statin
# Incidental finding of gastric mass, slightly increased from prior and highly suspicious for neoplasm.
GI on board,
plan EGD/ERCP 11/19
Full code
DVT prophylaxis: lovenox SQ
DW daughter at bedside
Anticipated Discharge: > 48 hours
Subjective/Interval History
-
Date of Service: November 20, 2023
Objective Data
-
Labs:
Laboratory Results
11/20/23
07:27
WBC 4.3 L
Hgb 9.3 L
Hct 27.8 L
Plt Count 144
Sodium 136
Potassium 4.2
Chloride 104
Carbon Dioxide 25
BUN 18 H
Creatinine 0.9
Glucose 118 H
Calcium 8.8
Total Bilirubin 1.3
AST 33
ALT 28
Alkaline Phosphatase 47
Vital Signs:
Vital Signs
Temp Pulse Resp BP Pulse Ox
36.9 C 57 17 131/50 95
11/20/23 07:35 11/20/23 07:35 11/20/23 07:35 11/20/23 07:35 11/20/23 07:35
I&O
11/19/23 11/20/23 11/21/23
06:59 06:59 06:59
Intake Total 2130 / 2130 1060 / 1060
Output Total 350 / 350 50 / 50
Balance 1780 / 1780 1010 / 1010
Review of Systems
-
All other systems: Reviewed and negative
Physical Exam
-
General: Well Developed, Well Nourished, No Apparent Distress, Comfortable and Conversant; Negative Respiratory Distress
HEENT: Normocephalic, Atraumatic, Nose Appears Normal and Ears Appear Normal; Negative Oxygen
Respiratory: Clear to Auscultation and Non Labored Respirations; Negative Accessory Resp Muscle Use
Cardiac: Regular Rhythm and S1/S2
GI: Soft, Nondistended, Normal Bowel Sounds and Other (RUQ with drain)
Skin: Warm and Dry
Neuro: Awake and Alert
Psych: Calm and Intact Judgement/Insight
Data Reviewed
-
CT Scan: Report Reviewed by me and Discussed with Patient
Labs: Labs Reviewed by me
--- NOTE | 2023-11-20 13:29 | W.PN.UPDATE ---
Update Note
Progress Note Update
For ERCP today per GI
--- NOTE | 2023-11-20 16:32 | CM ---
Patient seen at bedside with daughter Lyubov present. Patient is for procedure today. Patient daughter indicated that they would like to go home with [facility] if possible. Patient lives alone. IMM completed and signed form placed on chart. CM will
continue to follow for discharge planning needs.
Plan; home with [facility] if VN needed.
[2023-11-20] MEDS: LOVENOX 40 MG SC (21:12)
[2023-11-21 04:11] VITALS: BP 147/61
[2023-11-21] MEDS: ZOSYN 50 IV ×4 (04:41→22:01)
[2023-11-21 07:15] VITALS: BP 182/64
[2023-11-21] MEDS: TENORMIN 50 MG PO (07:56)
[2023-11-21] MEDS: ULTRAM 50 MG PO (07:56)
[2023-11-21 08:30] LABS: Hematocrit 29.3 % (37.0-47.0); Hemoglobin 9.4 g/dL (12.0-16.0); Mean Corp Hgb Conc. 32.1 g/dL (33.0-37.0); Mean Corpuscular Hgb 28.7 pg (27.0-31.0); Mean Corpuscular Volume 89.3 fL (81.0-99.0); Platelet Count 138 10^3/uL (130-400); Red Blood Cell Count 3.28 10^6/uL (4.20-5.40); Red Cell Dist. Width 15.3 % (11.5-14.5)
[2023-11-21 08:37] LABS: White Blood Cell Count 2.1 10^3/uL (4.8-10.8)
[2023-11-21 09:10] LABS: ALT (SGPT) 273 U/L (0-35); AST (SGOT) 415 U/L (14-36); Albumin 3.4 g/dl (3.5-5.0); Alkaline Phosphatase 222 U/L (38-126); Blood Urea Nitrogen 20 mg/dl (7-17); Calcium 8.8 mg/dl (8.4-10.2); Carbon Dioxide 27 mmol/L (22-30); Chloride 105 mmol/L (98-107); Estimated Creatinine Clearance 40 ml/min; Glucose 149 mg/dl (70-99); Magnesium 2.3 mg/dl (1.6-2.3); Potassium 3.9 mmol/L (3.5-5.1); Sodium 140 mmol/L (135-145); Total Bilirubin 4.1 mg/dl (0.2-1.3); Total Protein 6.6 g/dl (6.3-8.2); eGFR > 60.00
[2023-11-21] MEDS: DILAUDID 0.5 MG IV (09:53)
--- NOTE | 2023-11-21 11:06 | W.PN.GS2 ---
Today's Communication / Plan
-
Pancreatitis
Okay for trial of clears can advance as tolerated.
Titrate IV fluids
Assessment / Plan
-
Patient is an 83 yo F POD#3 s/p laparoscopic cholecystectomy for gangrenous cholecystitis, +IOC status post ERCP 11/20/2023 now with pancreatitis. 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
Recovering well. No major postoperative concerns. Surgical pathology consistent with a gangrenous cholecystitis. FNA pending
-Okay for clears, can advance as tolerated
-Trend CBC and CMP as well as lipase.
-Titrate IV fluids to urine output 0.5 to 1 cc/kg/h
-Tylenol and IV Dilaudid PRN, added Toradol and tramadol for when taking PO
-Continue Zosyn x 4 days
-Anticipate removal of the FRANK drain tomorrow as well as possible discharge tomorrow pending her clinical course
-Lovenox for DVT
-Home medications per primary
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 Discussed options both nonoperative as well as operative with patient and daughter. They will think about it and we can decide on a plan at her
follow-up visit in 3 weeks. Discharge instructions updated.
Time Spent
Total Time Spent with Patient (in minutes): 20
Subjective Data
-
Date of Service: November 21, 2023
Interval Events:
No acute events overnight. Patient went for successful ERCP yesterday. Slept well. Intense epigastric pain began this morning concerning for post ERCP pancreatitis. Denies Nausea/Vomiting, +bowel function. Tolerating some clears but not
particularly hungry.
Objective Data
-
Intake and Output
11/20/23 11/21/23 11/22/23
06:59 06:59 06:59
Intake Total 1060 / 1060 580 / 580
Output Total
Balance 1010 / 1010 550 / 550
Intake:
Oral fluids 960 / 960 480 / 480
IV fluids (Total) 100 / 100
ns 100 / 100
IV piggybacks 100 / 100
Output:
Drain Output (Total)
Right Lower Abdomen
Other:
Number of approximated MODERATE 1 1
amounts of urine
Number of approximated LARGE 2
amounts of urine
Vital Signs
Temp Pulse Resp BP Pulse Ox
98.3 F 56 16 182/64 95
11/21/23 07:15 11/21/23 07:15 11/21/23 07:15 11/21/23 07:56 11/21/23 08:00
Lab Results
11/21/23 07:41
11/21/23 07:41
Calcium 8.8 mg/dl (8.4-10.2) 11/21/23 07:41
Magnesium 2.3 mg/dl (1.6-2.3) 11/21/23 07:41
Total Bilirubin 4.1 mg/dl (0.2-1.3) H D 11/21/23 07:41
Direct Bilirubin 0.5 mg/dl (0.0-0.4) H 11/18/23 06:26
AST 415 U/L (14-36) H 11/21/23 07:41
ALT 273 U/L (0-35) H 11/21/23 07:41
Alkaline Phosphatase 222 U/L (38-126) H 11/21/23 07:41
Total Protein 6.6 g/dl (6.3-8.2) 11/21/23 07:41
Albumin 3.4 g/dl (3.5-5.0) L 11/21/23 07:41
Physical Exam
-
GENERAL/NEURO: Awake, Alert, no distress
CHEST: Unlabored breathing on RA
ABDOMEN: Soft, tender to palpation in the epigastrium, nondistended. Incisions clean dry and intact, drain with serosanguineous output.
[2023-11-21 11:32] VITALS: BP 163/69
--- NOTE | 2023-11-21 11:58 | W.PN.HOSP.TC ---
Today's Communication/Plan
-
see A/P
Assessment / Plan
Assessment / Plan
HPI: 83-year-old female with past medical history of hypertension, hyperlipidemia; p/w right sided Abd pain with radiation to her middle back. She vomited once. She just got over COVID and finished the course of paxlovid.
CT highly suspicious for acute cholecystitis. Zosyn in ER admitting for further management
A/P:
# acute gallstone cholecystitis
s/p perc cholecystectomy 11/17 by GS
cont abd drain per surgery
DVT ppx with Lovenox SQ
started clears per GS, ADAT
# History of MDS
# anemia of chronic disease
# Acute blood loss anemia from OR
Hgb today at 9.4, from 8.8 yesterday, was at 10.5 on admission
Leucopenia today at 2.1 likely due to underlying MDS
Cont to monitor CBC
# Essential hypertension
# Bradycardia
Would not use [employer] atenolol for BP control in setting of bradycardia
start low dose Norvasc 2.5 mg daily,
IV hydralazine PRN for SBP > 160
# Hypercholesterolemia
hold statin
# Incidental finding of gastric mass, slightly increased from prior and highly suspicious for neoplasm.
s/p EGD: noted a single subepithelial papule (nodule) found in the stomach. An intramural (subepithelial) lesion was found in the greater curve of the stomach. The lesion appeared to originate from within the muscularis propria. The diagnosis is a
stromal cell (smooth muscle) neoplasm, of indeterminate biological behavior. Fine needle aspiration performed. One stone was visualized endosonographically in the common bile duct.
Refer to a surgeon for surgical management if cytology confirms GIST.
s/p ERCP 11/19 noted filling defect consistent with a stone was seen on the cholangiogram. Choledocholithiasis was found. Complete removal was accomplished by biliary sphincterotomy and balloon extraction.
Follow cytology results outpt
Informed pt to follow up with her outpt Oncologist Dr Case now for the stomach mass
# New transaminitis likely due to ERCP
Cont to monitor LFT
expect LFT to normalize in due course
Full code
DVT prophylaxis: Lovenox SQ
DW RN
Anticipated Discharge: > 48 hours
Subjective/Interval History
-
Date of Service: November 21, 2023
Objective Data
-
Labs:
Laboratory Results
11/21/23
07:41
WBC 2.1 L*
Hgb 9.4 L
Hct 29.3 L
Plt Count 138
Sodium 140
Potassium 3.9
Chloride 105
Carbon Dioxide 27
BUN 20 H
Creatinine 0.9
Glucose 149 H
Calcium 8.8
Total Bilirubin 4.1 H D
AST 415 H
ALT 273 H
Alkaline Phosphatase 222 H
Vital Signs:
Vital Signs
Temp Pulse Resp BP Pulse Ox
36.9 C 46 17 163/69 95
11/21/23 11:32 11/21/23 11:32 11/21/23 11:32 11/21/23 11:32 11/21/23 11:32
I&O
11/20/23 11/21/23 11/22/23
06:59 06:59 06:59
Intake Total 1060 / 1060 580 / 580
Output Total 50 / 50
Balance 1010 / 1010 550 / 550
Review of Systems
-
All other systems: Reviewed and negative
Physical Exam
-
General: Well Developed, Well Nourished, No Apparent Distress, Comfortable and Conversant; Negative Respiratory Distress
HEENT: Normocephalic, Atraumatic, Nose Appears Normal and Ears Appear Normal; Negative Oxygen
Respiratory: Clear to Auscultation and Non Labored Respirations; Negative Accessory Resp Muscle Use
Cardiac: Regular Rhythm and S1/S2
GI: Soft, Nondistended, Normal Bowel Sounds and Other (RUQ with drain)
Skin: Warm and Dry
Neuro: Awake and Alert
Psych: Calm and Intact Judgement/Insight
Data Reviewed
-
CT Scan: Report Reviewed by me and Discussed with Patient
Medical Tests (Nuc Med, Echo etc): Report Reviewed by me (EGD/ERCP reports)
Labs: Labs Reviewed by me
[2023-11-21 12:09] VITALS: BP 160/68
[2023-11-21] MEDS: TORADOL 15 MG IV ×2 (14:02→22:01)
[2023-11-21 14:10] LABS: Lipase > 4000 U/L (23-300)
[2023-11-21 15:15] VITALS: BP 146/67
--- NOTE | 2023-11-21 15:28 | CM ---
Patient seen at bedside, Referral sent to [facility] via all [facility]. Patient indicated that she was not feeling very well today and that she had pancreatitis. CM will continue to follow for discharge planning needs.
Plan; home with [facility] referral sent awaiting response.
--- NOTE | 2023-11-21 15:51 | W.PN.GI.CBS2 ---
Addendum entered and electronically signed by Petrona Natarajan MD 11/21/23 23:31:
I saw and examined the patient.
The BARREL RIFLER HOOK's note was reviewed and I agree with the note.
Comment: patient was seen earlier today(late entry), s/p EUS and ERCP yesterday she had more epigastric pain today AM ordered Lipase level and elevated, also LFTS higher, has post ERCP pancreatitis. started on IVF, continue pain control and clears
as tolerated. Elevated LFTS likely from edema from sphincterotomy. will follow repeat labs in AM. also with possible gastric GIST seen on EUS, path pending. noted input from surgery.
Original Note:
Today's Communication / Plan
-
s/p ERCP and EUS with stone extraction and concern for GIST
await pathology
some abdominal pain this am with slow improvement after admission
some rise in LFT's and lipase this am
agree with clear diet today
IVF to restart LR at 125ml/hr
cont abx
trend LFT's and lipase
surgery following post dianne and reviewed for GIST
message sent to Dr. coles for update
will follow
Assessment / Plan
-
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 CT on admission with
concern for acute calculus cholecystitis and also noted gastric mass slightly increased from prior concern for neoplasm. After admission also noted with fever 102.3. Pt went to OR for lap dianne with lysis of adhesion and but noted with dilated
CBD with 2 large filling defects c/w choledocholithiasis. On admission WBC stable with initial LFT's adry 1.5, AST 39, ALT 22, alk phos 61 then minimal risk to bili 1.5, AST 44, ALT 37, and alk phos 47 after admission. 11/19 s/p ERCP/EUS with noted
GIST.
11/20/23 EUS - Normal esophagus.
- A single subepithelial papule (nodule) found in the
stomach.
- Normal duodenal bulb, first portion of the duodenum
and second portion of the duodenum.
- An intramural (subepithelial) lesion was found in
the greater curve of the stomach. The lesion appeared
to originate from within the muscularis propria (Layer
4). The diagnosis is a stromal cell (smooth muscle)
neoplasm, of indeterminate biological behavior. Fine
needle aspiration performed.
- One stone was visualized endosonographically in the
common bile duct.
- There was no sign of significant pathology in the
pancreatic head.
11/20/23 ERCP - The major papilla was adjacent to a diverticulum.
- A filling defect consistent with a stone was seen on
the cholangiogram.
- Choledocholithiasis was found. Complete removal was
accomplished by biliary sphincterotomy and balloon
extraction.
- A biliary sphincterotomy was performed.
- Major papilla was successfully dilated.
- The biliary tree was swept.
-+ IOC with retained CBD stone
-some post ERCP pancreatitis
-gastric mass noted on CT concern for GIST
-fever after admission
-s/p lap dianne 11/17 for acute calculus cholecystitis
-recent covid with Paxlovid treatment
other medical problems:
-MDS
-Tcell LGL
-HTN
-hypercholesterolemia
-chronic shoulder pain b/l
PLAN:
s/p ERCP and EUS with stone extraction and concern for GIST
await pathology
some abdominal pain this am with slow improvement after admission
some rise in LFT's and lipase this am
agree with clear diet today
IVF to restart LR at 125ml/hr
cont abx
trend LFT's and lipase
surgery following post dianne and reviewed for GIST
message sent to Dr. sharyn for update
will follow
Subjective
Subjective
Date of Service: November 21, 2023
some pain this am -- slight improvement this afternoon
Objective
Data Reviewed
Laboratory Data:
Laboratory Results
11/21/23 07:41
11/21/23 07:41
Laboratory Results
PT 16.8 Sec (11.4-14.6) H 11/19/23 11:56
INR 1.38 11/19/23 11:56
Magnesium 2.3 mg/dl (1.6-2.3) 11/21/23 07:41
Total Bilirubin 4.1 mg/dl (0.2-1.3) H D 11/21/23 07:41
AST 415 U/L (14-36) H 11/21/23 07:41
ALT 273 U/L (0-35) H 11/21/23 07:41
Alkaline Phosphatase 222 U/L (38-126) H 11/21/23 07:41
Lipase > 4000 U/L (23-300) H* 11/21/23 07:41
Vital Signs and I&O:
Vital Signs
Temp Pulse Resp BP Pulse Ox
98.1 F 51 17 146/67 94
11/21/23 15:15 11/21/23 15:15 11/21/23 15:15 11/21/23 15:15 11/21/23 15:15
I&O
11/20/23 11/21/23 11/22/23
06:59 06:59 06:59
Intake Total 1060 / 1060 580 / 580 240 / 240
Output Total 50 / 50
Balance 1010 / 1010 550 / 550 240 / 240
Physical Exam
Physical Exam
HEENT: Anicteric and Moist mucous membranes
Cardiology: Normal Sinus Rhythm
Pulmonary: Clear
GI: Soft, Non Distended and Tender (epigastric pinpoint pain )
Extremities: No Edema
Neuro: Non Focal
[2023-11-21] MEDS: LR 1000 IV (15:52)
[2023-11-21] MEDS: LOVENOX 40 MG SC (17:14)
[2023-11-21 23:50] VITALS: BP 125/57
[2023-11-22] MEDS: LR 1000 IV ×2 (00:44→13:38)
[2023-11-22] MEDS: ZOSYN 50 IV ×3 (04:34→17:25)
[2023-11-22 05:35] LABS: % Immature Granulocytes 0.5 % (0-0.5); % Lymphocytes 11.4 % (20.5-51.1); % Monocytes 8.2 % (1.7-9.3); % Neutrophils 79.9 % (42.2-75.2); Absolute Lymphocytes 0.5 10^3/uL (1.2-3.4); Absolute Monocytes 0.3 10^3/uL (0.1-0.6); Absolute Neutrophils 3.2 10^3/uL (1.4-6.5); Hematocrit 27.1 % (37.0-47.0); Hemoglobin 8.9 g/dL (12.0-16.0); Mean Corp Hgb Conc. 32.8 g/dL (33.0-37.0); Mean Corpuscular Hgb 29.1 pg (27.0-31.0); Mean Corpuscular Volume 88.6 fL (81.0-99.0); Mean Platelet Volume 10.6 fL (7.4-10.4); Nucleated Red Blood Cells % 0 %; Platelet Count 141 10^3/uL (130-400); Red Blood Cell Count 3.06 10^6/uL (4.20-5.40); Red Cell Dist. Width 15.7 % (11.5-14.5)
[2023-11-22 06:01] LABS: ALT (SGPT) 227 U/L (0-35); AST (SGOT) 197 U/L (14-36); Albumin 2.9 g/dl (3.5-5.0); Alkaline Phosphatase 148 U/L (38-126); Blood Urea Nitrogen 18 mg/dl (7-17); Calcium 8.3 mg/dl (8.4-10.2); Carbon Dioxide 29 mmol/L (22-30); Chloride 102 mmol/L (98-107); Estimated Creatinine Clearance 45 ml/min; Glucose 122 mg/dl (70-99); Potassium 3.5 mmol/L (3.5-5.1); Sodium 135 mmol/L (135-145); Total Protein 5.8 g/dl (6.3-8.2); eGFR > 60.00
[2023-11-22 06:29] LABS: Lipase 3061 U/L (23-300)
--- NOTE | 2023-11-22 06:48 | W.PN.GI.CBS2 ---
Today's Communication / Plan
-
Please see assessment plan for details.
Assessment / Plan
-
1. CBD stone: Postcholecystectomy, status post ERCP with mild post ERCP pancreatitis, now clinically much improved. LFTs and lipase are improving though still elevated. And spinal continue IV fluids and clear liquids, if continues to improve then
can advance diet tomorrow.
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
Subjective
Subjective
Date of Service: November 22, 2023
Patient feeling much better than yesterday, still some mild discomfort, though again much improved, no vomiting fevers or chills.
Objective
Data Reviewed
Laboratory Data:
Laboratory Results
11/22/23 04:44
11/22/23 04:44
Laboratory Results
PT 16.8 Sec (11.4-14.6) H 11/19/23 11:56
INR 1.38 11/19/23 11:56
Magnesium 2.3 mg/dl (1.6-2.3) 11/21/23 07:41
Total Bilirubin 4.0 mg/dl (0.2-1.3) H 11/22/23 04:44
AST 197 U/L (14-36) H 11/22/23 04:44
ALT 227 U/L (0-35) H 11/22/23 04:44
Alkaline Phosphatase 148 U/L (38-126) H 11/22/23 04:44
Lipase 3061 U/L (23-300) H* 11/22/23 04:44
Vital Signs and I&O:
Vital Signs
Temp Pulse Resp BP Pulse Ox
98.9 F 52 20 125/57 94
11/21/23 23:50 11/21/23 23:50 11/21/23 23:50 11/21/23 23:50 11/21/23 23:50
I&O
11/20/23 11/21/23 11/22/23
06:59 06:59 06:59
Intake Total 1060 / 1060 580 / 580 2319 / 2319
Output Total 50 / 50 160 / 160
Balance 1010 / 1010 550 / 550 2160 / 2160
Physical Exam
Physical Exam
General: NAD
Abdomen: normal bowel sounds, soft, mild epigastric tenderness, no masses or bruits, no ascites
[2023-11-22 07:30] VITALS: BP 147/61
[2023-11-22] MEDS: KCL 270 MEQ IV (08:06)
[2023-11-22] MEDS: NORVASC 2.5 MG PO (08:06)
--- NOTE | 2023-11-22 08:45 | W.PN.SURGUPD ---
Surgical Update
Surgical Update
No changes from a surgical perspective. Diet advancement per GI. Operative FRANK drain to be removed prior to DC. Please call when ready for DC and will remove. Outpatient follow-up with Dr. Fofana. Discharge instructions have been updated.
--- NOTE | 2023-11-22 12:18 | W.PN.HOSP.TC ---
Today's Communication/Plan
-
see A/P
Assessment / Plan
Assessment / Plan
HPI: 83-year-old female with past medical history of hypertension, hyperlipidemia; p/w right sided Abd pain with radiation to her middle back. She vomited once. She just got over COVID and finished the course of paxlovid.
CT highly suspicious for acute cholecystitis. Zosyn in ER admitting for further management
A/P:
# acute gallstone cholecystitis
s/p perc cholecystectomy 11/17 by GS
cont abd drain per surgery, to be removed upon discharge
DVT ppx with Lovenox SQ
Advanced clears to full liquid, cont to ADAT
# History of MDS
# anemia of chronic disease
# Acute blood loss anemia from OR
Hgb today at 9.4, from 8.8 yesterday, was at 10.5 on admission
Leucopenia today at 2.1 likely due to underlying MDS
Cont to monitor CBC
# Essential hypertension
# Bradycardia
Would not use [employer] atenolol for BP control in setting of bradycardia
started low dose Norvasc 2.5 mg daily,
IV hydralazine PRN for SBP > 160
# Hypercholesterolemia
hold statin
# Incidental finding of gastric mass, slightly increased from prior and highly suspicious for neoplasm.
s/p EGD: noted a single subepithelial papule (nodule) found in the stomach. An intramural (subepithelial) lesion was found in the greater curve of the stomach. The lesion appeared to originate from within the muscularis propria. The diagnosis is a
stromal cell (smooth muscle) neoplasm, of indeterminate biological behavior. Fine needle aspiration performed. One stone was visualized endosonographically in the common bile duct.
Refer to a surgeon for surgical management if cytology confirms GIST.
s/p ERCP 11/19 noted filling defect consistent with a stone was seen on the cholangiogram. Choledocholithiasis was found. Complete removal was accomplished by biliary sphincterotomy and balloon extraction.
Follow cytology results outpt
Informed pt to follow up with her outpt Oncologist Dr Case now for the stomach mass
# New transaminitis likely due to ERCP
Cont to monitor LFT
expect LFT to normalize in due course
# Elevated lipase post ERCP
cont to trend
Pt without significant abd pain
Diet advanced to full liquid
Full code
DVT prophylaxis: Lovenox SQ
DW RN
Anticipated Discharge: Within 24 hours
Subjective/Interval History
-
Date of Service: November 22, 2023
Objective Data
-
Labs:
Laboratory Results
11/22/23
04:44
WBC 4.0 L
Hgb 8.9 L
Hct 27.1 L
Plt Count 141
Sodium 135
Potassium 3.5
Chloride 102
Carbon Dioxide 29
BUN 18 H
Creatinine 0.8
Glucose 122 H
Calcium 8.3 L
Total Bilirubin 4.0 H
AST 197 H
ALT 227 H
Alkaline Phosphatase 148 H
Vital Signs:
Vital Signs
Temp Pulse Resp BP Pulse Ox
37.2 C 61 16 147/61 96
11/22/23 07:30 11/22/23 07:30 11/22/23 07:30 11/22/23 07:30 11/22/23 07:30
I&O
11/21/23 11/22/23 11/23/23
06:59 06:59 06:59
Intake Total 580 / 580 0 / 2320
Output Total 160 / 160
Balance 550 / 550 2160 / 2160
Review of Systems
-
All other systems: Reviewed and negative
Physical Exam
-
General: Well Developed, Well Nourished, No Apparent Distress, Comfortable and Conversant; Negative Respiratory Distress
HEENT: Normocephalic, Atraumatic, Nose Appears Normal and Ears Appear Normal; Negative Oxygen
Respiratory: Clear to Auscultation and Non Labored Respirations; Negative Accessory Resp Muscle Use
Cardiac: Regular Rhythm and S1/S2
GI: Soft, Nondistended, Normal Bowel Sounds and Other (RUQ with drain)
Skin: Warm and Dry
Neuro: Awake and Alert
Psych: Calm and Intact Judgement/Insight
Data Reviewed
-
CT Scan: Report Reviewed by me and Discussed with Patient
Medical Tests (Nuc Med, Echo etc): Report Reviewed by me (EGD/ERCP reports)
Labs: Labs Reviewed by me
[2023-11-22 12:32] VITALS: BMI 26.0
[2023-11-22] MEDS: ZOSYN IV (12:38)
[2023-11-22 15:10] VITALS: BP 150/63
[2023-11-22] MEDS: TYLENOL 650 MG PO (15:22)
--- NOTE | 2023-11-22 16:04 | CM ---
S/P dianne 11/18/23, diet advanced, FRANK remains in place. Anticipate removal prior to discharge. Discharge Plan of Care: Home with [facility] services.
[2023-11-22] MEDS: LOVENOX 40 MG SC (17:26)
[2023-11-22] MEDS: OCEAN, SALINE MIST 2 SPRAYS NASAL (22:14)
[2023-11-22 23:35] VITALS: BP 150/62
[2023-11-23] MEDS: ZOSYN 50 IV ×4 (00:01→17:05)
[2023-11-23 05:41] LABS: % Basophils 0.2 % (0-2); % Immature Granulocytes 0.8 % (0-0.5); % Monocytes 5.6 % (1.7-9.3); % Neutrophils 86.4 % (42.2-75.2); Absolute Lymphocytes 0.4 10^3/uL (1.2-3.4); Absolute Monocytes 0.3 10^3/uL (0.1-0.6); Absolute Neutrophils 4.6 10^3/uL (1.4-6.5); Hematocrit 25.3 % (37.0-47.0); Hemoglobin 8.3 g/dL (12.0-16.0); Mean Corp Hgb Conc. 32.8 g/dL (33.0-37.0); Mean Corpuscular Hgb 28.9 pg (27.0-31.0); Mean Corpuscular Volume 88.2 fL (81.0-99.0); Mean Platelet Volume 10.2 fL (7.4-10.4); Nucleated Red Blood Cells % 0 %; Platelet Count 126 10^3/uL (130-400); Red Blood Cell Count 2.87 10^6/uL (4.20-5.40); Red Cell Dist. Width 15.7 % (11.5-14.5); White Blood Cell Count 5.3 10^3/uL (4.8-10.8)
[2023-11-23] MEDS: ZOFRAN 4 MG IV (05:51)
[2023-11-23 06:14] LABS: ALT (SGPT) 135 U/L (0-35); AST (SGOT) 70 U/L (14-36); Albumin 2.7 g/dl (3.5-5.0); Alkaline Phosphatase 118 U/L (38-126); Blood Urea Nitrogen 10 mg/dl (7-17); Calcium 8.1 mg/dl (8.4-10.2); Carbon Dioxide 28 mmol/L (22-30); Chloride 104 mmol/L (98-107); Estimated Creatinine Clearance 51 ml/min; Glucose 124 mg/dl (70-99); Lipase 319 U/L (23-300); Potassium 3.7 mmol/L (3.5-5.1); Sodium 135 mmol/L (135-145); Total Bilirubin 1.9 mg/dl (0.2-1.3); Total Protein 5.6 g/dl (6.3-8.2); eGFR > 60.00
--- NOTE | 2023-11-23 06:25 | PTCARENOTE ---
Pt 2112 Al CBD stone: Postcholecystectomy, status post ERCP with mild post ERCP pancreatitis, tolerated full liquid diet last night had some nausea before bed which she reported was from her post nasl drip..just had episode of N/V of approx 50
ml of green emesis. Pt reports no BM for 6 days, hypoactive BS present. Zofran given at this time, notified circulation man colorectal MD educated pt to remain NPO at this time until further order from MD. Oral care provided
[2023-11-23 07:18] VITALS: BP 143/61
[2023-11-23] MEDS: TYLENOL PO (08:05)
[2023-11-23] MEDS: NORVASC 2.5 MG PO (08:05)
[2023-11-23] MEDS: TYLENOL 650 MG PO ×2 (08:07→16:54)
--- NOTE | 2023-11-23 08:18 | W.PN.GI.CBS2 ---
Today's Communication / Plan
-
See assessment plan for details.
Assessment / Plan
-
1. CBD stone: Postcholecystectomy, status post ERCP with mild post ERCP pancreatitis, now clinically much improved, though with some nausea and vomiting, possible mild ileus. She is having some flatus and her abdomen is soft, though will follow-up
on obstruction series ordered. LFTs and lipase are much improved. Will continue clear liquid diet for now as well as IV fluids.
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
Subjective
Subjective
Date of Service: November 23, 2023
Patient feeling okay, less pain though did have some vomiting and dry heaves overnight. She is having flatus, no fevers or chills.
Objective
Data Reviewed
Laboratory Data:
Laboratory Results
11/23/23 04:48
11/23/23 04:48
Laboratory Results
PT 16.8 Sec (11.4-14.6) H 11/19/23 11:56
INR 1.38 11/19/23 11:56
Magnesium 2.3 mg/dl (1.6-2.3) 11/21/23 07:41
Total Bilirubin 1.9 mg/dl (0.2-1.3) H D 11/23/23 04:48
AST 70 U/L (14-36) H 11/23/23 04:48
ALT 135 U/L (0-35) H 11/23/23 04:48
Alkaline Phosphatase 118 U/L (38-126) 11/23/23 04:48
Lipase 319 U/L (23-300) H 11/23/23 04:48
Vital Signs and I&O:
Vital Signs
Temp Pulse Resp BP Pulse Ox
100.7 F H 66 18 143/61 96
11/23/23 07:18 11/23/23 07:18 11/23/23 07:18 11/23/23 07:18 11/23/23 07:18
I&O
11/22/23 11/23/23 11/24/23
06:59 06:59 06:59
Intake Total 2320 / 2320 2119
Output Total 160 / 160 60 / 60
Balance 2159
Physical Exam
Physical Exam
General: NAD
Abdomen: normal bowel sounds, soft, mild epigastric tenderness, no masses or bruits, no ascites
--- NOTE | 2023-11-23 08:21 | W.PN.GS2 ---
Today's Communication / Plan
-
-- Diet per GI
-- CXR and Abd X-ray ordered
-- FRANK drain to be removed just prior to DC
Assessment / Plan
-
Patient is an 83 yo F POD#4 s/p laparoscopic cholecystectomy for gangrenous cholecystitis, +IOC status post ERCP 11/20/2023 now with pancreatitis. 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
Low grade fevers
Bilirubin, LFTs, and lipase trending down. WBC normal
Issues with abdominal pain, N/V, and fevers. Differential broad, likely sequela of pancreatitis. Unlikely post-surgical given ERCP cholang and drain outputs
-Diet per GI, check X-ray for ileus
-Trend CBC and CMP as well as lipase.
-Pain control: Tylenol, Toradol, IV Dilaudid PRN, and Tramadol for when taking PO consitently
-Abx per GI and Hospitalist, no further needed after today from surgical standpoint
-Anticipate removal of the FRANK drain prior to DC
-Lovenox for DVT
-Home medications per primary
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 Discussed options both nonoperative as well as operative with patient and daughter. They will think about it and we can decide on a plan at her
follow-up visit in 3 weeks. Discharge instructions updated.
Subjective Data
-
Date of Service: November 23, 2023
Reports feeling tired. Abdominal and back pain. No worsening SOB. Issues with nausea and small-volume emesis overnight. Febrile. Ambulating. Voiding.
Objective Data
-
Intake and Output
11/22/23 11/23/23 11/24/23
06:59 06:59 06:59
Intake Total 2320 / 2320 2119 / 2120
Output Total 160 / 160 60 / 60
Balance 2160 / 2160 2059
Intake:
Oral fluids 1200 / 1200 660 / 660
IV fluids (Total) 1020 / 1020 1360 / 1360
IV piggybacks 100 / 100 100 / 100
Output:
Drain Output (Total) 160 / 160 60 / 60
Asher-De Oliveira 160 / 160 60 / 60
Other:
Number of approximated SMALL 3
amounts of urine
Number of approximated MODERATE 1
amounts of urine
Vital Signs
Temp Pulse Resp BP Pulse Ox
100.7 F H 66 18 143/61 96
11/23/23 07:18 11/23/23 07:18 11/23/23 07:18 11/23/23 07:18 11/23/23 07:18
Lab Results
11/23/23 04:48
11/23/23 04:48
Calcium 8.1 mg/dl (8.4-10.2) L 11/23/23 04:48
Magnesium 2.3 mg/dl (1.6-2.3) 11/21/23 07:41
Total Bilirubin 1.9 mg/dl (0.2-1.3) H D 11/23/23 04:48
Direct Bilirubin 0.5 mg/dl (0.0-0.4) H 11/18/23 06:26
AST 70 U/L (14-36) H 11/23/23 04:48
ALT 135 U/L (0-35) H 11/23/23 04:48
Alkaline Phosphatase 118 U/L (38-126) 11/23/23 04:48
Total Protein 5.6 g/dl (6.3-8.2) L 11/23/23 04:48
Albumin 2.7 g/dl (3.5-5.0) L 11/23/23 04:48
Physical Exam
-
Gen: NAD
Abd: soft, tender to palpation, mild distension, non-peritoneal, FRANK serosang, saponification present
[2023-11-23] MEDS: LR 1000 IV ×2 (11:43)
--- NOTE | 2023-11-23 13:31 | W.PN.HOSP.TC ---
Today's Communication/Plan
-
see A/P
Assessment / Plan
Assessment / Plan
HPI: 83-year-old female with past medical history of hypertension, hyperlipidemia; p/w right sided Abd pain with radiation to her middle back. She vomited once. She just got over COVID and finished the course of paxlovid.
CT highly suspicious for acute cholecystitis. Zosyn in ER admitting for further management
A/P:
# acute gallstone cholecystitis
s/p perc cholecystectomy 11/17 by GS
cont abd drain per surgery, to be removed prior to discharge
DVT ppx with Lovenox SQ
Cont clears for now due to pt's complaint of nausea, hold off on advancing diet
# History of MDS
# anemia of chronic disease
# Acute blood loss anemia from OR
Hgb today 8.3, was at 10.5 on admission
Cont to monitor CBC
# Essential hypertension
# Bradycardia , resolved
Would not use [employer] atenolol for BP control in setting of bradycardia
started low dose Norvasc 2.5 mg daily, cont
IV hydralazine PRN for SBP > 160
# Hypercholesterolemia
hold statin
# Incidental finding of gastric mass, slightly increased from prior and highly suspicious for neoplasm.
s/p EGD: noted a single subepithelial papule (nodule) found in the stomach. An intramural (subepithelial) lesion was found in the greater curve of the stomach. The lesion appeared to originate from within the muscularis propria. The diagnosis is a
stromal cell (smooth muscle) neoplasm, of indeterminate biological behavior. Fine needle aspiration performed. One stone was visualized endosonographically in the common bile duct.
Refer to a surgeon for surgical management if cytology confirms GIST.
s/p ERCP 11/19 noted filling defect consistent with a stone was seen on the cholangiogram. Choledocholithiasis was found. Complete removal was accomplished by biliary sphincterotomy and balloon extraction.
Follow cytology results outpt
Informed pt to follow up with her outpt Oncologist Dr Case now for the stomach mass
# New transaminitis and elevated lipase due to ERCP
Cont to monitor LFT/ lipase, expect levels to normalize in due course
# New fever noted on 11/21 and 11/22
Follow repeat blood Cx results
CXR 11/22: Mild to moderate elevation of the right hemidiaphragm, stable. Linear parenchymal opacity within both lower lungs, likely atelectasis. Small bilateral pleural effusions.
Abd XR 11/22: No significantly dilated air-filled loops of bowel are identified. There is no evidence for significant distention of the rectum with stool.
cont emperic Zosyn
Full code
DVT prophylaxis: Lovenox SQ
DW RN
Anticipated Discharge: > 48 hours
Subjective/Interval History
-
Date of Service: November 23, 2023
Objective Data
-
Labs:
Laboratory Results
11/23/23
04:48
WBC 5.3
Hgb 8.3 L
Hct 25.3 L
Plt Count 126 L
Sodium 135
Potassium 3.7
Chloride 104
Carbon Dioxide 28
BUN 10
Creatinine 0.7
Glucose 124 H
Calcium 8.1 L
Total Bilirubin 1.9 H D
AST 70 H
ALT 135 H
Alkaline Phosphatase 118
Vital Signs:
Vital Signs
Temp Pulse Resp BP Pulse Ox
38.2 C H 66 18 143/61 96
11/23/23 07:18 11/23/23 07:18 11/23/23 07:18 11/23/23 07:18 11/23/23 07:18
I&O
11/22/23 11/23/23 11/24/23
06:59 06:59 06:59
Intake Total 2320 / 2320 2120 / 2120
Output Total 160 / 160 60 / 60
Balance 2160 / 2160 2060 / 2060
Review of Systems
-
All other systems: Reviewed and negative
Abdomen/GI: Reports Abdominal Pain (with radiation to be back), Nausea and Vomiting (bile)
Physical Exam
-
General: Well Developed, Well Nourished, No Apparent Distress, Comfortable and Conversant; Negative Respiratory Distress
HEENT: Normocephalic, Atraumatic, Nose Appears Normal and Ears Appear Normal; Negative Oxygen
Respiratory: Clear to Auscultation and Non Labored Respirations; Negative Accessory Resp Muscle Use
Cardiac: Regular Rhythm and S1/S2
GI: Soft, Nondistended, Normal Bowel Sounds, Tender (mild) and Other (RUQ with drain)
Skin: Warm and Dry
Neuro: Awake and Alert
Psych: Calm and Intact Judgement/Insight
Data Reviewed
-
Diagnostic Radiology: Report Reviewed by me
CT Scan: Report Reviewed by me and Discussed with Patient
Medical Tests (Nuc Med, Echo etc): Report Reviewed by me (EGD/ERCP reports)
Labs: Labs Reviewed by me
[2023-11-23] MEDS: ULTRAM 50 MG PO ×2 (14:23→22:09)
[2023-11-23 15:23] VITALS: BP 171/71
[2023-11-23] MEDS: APRESOLINE 5 MG IV (15:31)
[2023-11-23] MEDS: LOVENOX 40 MG SC (17:05)
[2023-11-23 23:00] VITALS: BP 162/69
[2023-11-24] MEDS: ZOSYN 50 IV ×5 (00:35→23:09)
[2023-11-24] MEDS: LR 1000 IV ×4 (00:41→17:04)
[2023-11-24] MEDS: TYLENOL 650 MG PO (01:31)
[2023-11-24 05:38] VITALS: BP 154/62
[2023-11-24 06:29] LABS: % Basophils 0.2 % (0-2); % Immature Granulocytes 1.6 % (0-0.5); % Lymphocytes 8.2 % (20.5-51.1); % Monocytes 5.8 % (1.7-9.3); % Neutrophils 84.2 % (42.2-75.2); Absolute Immature Granulocytes 0.1 10^3/uL (0-0.05); Absolute Lymphocytes 0.4 10^3/uL (1.2-3.4); Absolute Monocytes 0.3 10^3/uL (0.1-0.6); Absolute Neutrophils 4.2 10^3/uL (1.4-6.5); Hematocrit 23.7 % (37.0-47.0); Mean Corp Hgb Conc. 33.8 g/dL (33.0-37.0); Mean Corpuscular Volume 85.9 fL (81.0-99.0); Mean Platelet Volume 10.3 fL (7.4-10.4); Nucleated Red Blood Cells % 0 %; Platelet Count 120 10^3/uL (130-400); Red Blood Cell Count 2.76 10^6/uL (4.20-5.40)
[2023-11-24 06:53] LABS: ALT (SGPT) 86 U/L (0-35); AST (SGOT) 36 U/L (14-36); Albumin 2.6 g/dl (3.5-5.0); Alkaline Phosphatase 91 U/L (38-126); Blood Urea Nitrogen 8 mg/dl (7-17); Calcium 8.1 mg/dl (8.4-10.2); Carbon Dioxide 28 mmol/L (22-30); Chloride 100 mmol/L (98-107); Estimated Creatinine Clearance 60 ml/min; Glucose 106 mg/dl (70-99); Lipase 102 U/L (23-300); Potassium 3.4 mmol/L (3.5-5.1); Sodium 132 mmol/L (135-145); Total Bilirubin 1.4 mg/dl (0.2-1.3); Total Protein 5.3 g/dl (6.3-8.2); eGFR > 60.00
[2023-11-24 07:53] VITALS: BP 153/62
[2023-11-24 07:58] LABS: Magnesium 1.8 mg/dl (1.6-2.3)
[2023-11-24] MEDS: NORVASC 2.5 MG PO (08:06)
[2023-11-24] MEDS: KCL 40 MEQ PO (08:06)
--- NOTE | 2023-11-24 12:04 | W.PN.HOSP.TC ---
Today's Communication/Plan
-
see A/P
Assessment / Plan
Assessment / Plan
HPI: 83-year-old female with past medical history of hypertension, hyperlipidemia; p/w right sided Abd pain with radiation to her middle back. She vomited once. She just got over COVID and finished the course of paxlovid.
CT highly suspicious for acute cholecystitis. Zosyn in ER admitting for further management
A/P:
# acute gallstone cholecystitis
s/p perc cholecystectomy 11/17 by GS
cont abd drain per surgery, to be removed prior to discharge
DVT ppx with Lovenox SQ
Cont clears for now due to pt's complaint of nausea, hold off on advancing diet
# History of MDS
# anemia of chronic disease
# Acute blood loss anemia from OR
Hgb today 8.0, was at 10.5 on admission
Cont to monitor CBC
# Essential hypertension
# Bradycardia , resolved
Would not use [employer]IL[employer] atenolol for BP control in setting of bradycardia
started low dose Norvasc 2.5 mg daily, cont
IV hydralazine PRN for SBP > 160
# Hypercholesterolemia
hold statin
# Incidental finding of gastric mass, slightly increased from prior and highly suspicious for neoplasm.
s/p EGD: noted a single subepithelial papule (nodule) found in the stomach. An intramural (subepithelial) lesion was found in the greater curve of the stomach. The lesion appeared to originate from within the muscularis propria. The diagnosis is a
stromal cell (smooth muscle) neoplasm, of indeterminate biological behavior. Fine needle aspiration performed. One stone was visualized endosonographically in the common bile duct.
Refer to a surgeon for surgical management if cytology confirms GIST.
s/p ERCP 11/19 noted filling defect consistent with a stone was seen on the cholangiogram. Choledocholithiasis was found. Complete removal was accomplished by biliary sphincterotomy and balloon extraction.
Follow cytology results outpt
Informed pt to follow up with her outpt Oncologist Dr Case now for the stomach mass
# New transaminitis and elevated lipase due to ERCP
LFT and lipase levels improving
Diet advanced to full liquid
# New fever noted on 11/21 and 11/22, now resolved
Repeat blood Cx negative
CXR 11/22: Mild to moderate elevation of the right hemidiaphragm, stable. Linear parenchymal opacity within both lower lungs, likely atelectasis. Small bilateral pleural effusions.
Abd XR 11/22: No significantly dilated air-filled loops of bowel are identified. There is no evidence for significant distention of the rectum with stool.
cont empiric Zosyn
Full code
DVT prophylaxis: Lovenox SQ
DW daughter at bedside
Anticipated Discharge: Within 24 hours
Subjective/Interval History
-
Date of Service: November 24, 2023
Objective Data
-
Labs:
Laboratory Results
11/24/23
05:49
WBC 5.0
Hgb 8.0 L
Hct 23.7 L
Plt Count 120 L
Sodium 132 L
Potassium 3.4 L
Chloride 100
Carbon Dioxide 28
BUN 8
Creatinine 0.5 L
Glucose 106 H
Calcium 8.1 L
Total Bilirubin 1.4 H
AST 36
ALT 86 H
Alkaline Phosphatase 91
Vital Signs:
Vital Signs
Temp Pulse Resp BP Pulse Ox
37.2 C 72 20 153/62 94
11/24/23 07:53 11/24/23 07:53 11/24/23 07:53 11/24/23 07:53 11/24/23 08:00
I&O
11/23/23 11/24/23 11/25/23
06:59 06:59 06:59
Intake Total 2120 / 2120 4300 / 4300
Output Total 60 / 60 70 / 70 50 / 50
Balance 2059 4230 / 4230 -50 / -50
Review of Systems
-
All other systems: Reviewed and negative
Abdomen/GI: Denies Abdominal Pain, Nausea or Vomiting
Physical Exam
-
General: Well Developed, Well Nourished, No Apparent Distress, Comfortable and Conversant; Negative Respiratory Distress
HEENT: Normocephalic, Atraumatic, Nose Appears Normal and Ears Appear Normal; Negative Oxygen
Respiratory: Clear to Auscultation and Non Labored Respirations; Negative Accessory Resp Muscle Use
Cardiac: Regular Rhythm and S1/S2
GI: Soft, Nontender, Nondistended, Normal Bowel Sounds and Other (RUQ with drain)
Skin: Warm and Dry
Neuro: Awake and Alert
Psych: Calm and Intact Judgement/Insight
Data Reviewed
-
Diagnostic Radiology: Report Reviewed by me
CT Scan: Report Reviewed by me and Discussed with Patient
Medical Tests (Nuc Med, Echo etc): Report Reviewed by me (EGD/ERCP reports)
Labs: Labs Reviewed by me
--- NOTE | 2023-11-24 12:11 | W.PN.GI.CBS2 ---
Today's Communication / Plan
-
adv full liquid diet today
Assessment / Plan
-
1. CBD stone: Postcholecystectomy, status post ERCP with mild post ERCP pancreatitis, now clinically much improved and XR yesterday with no ileus. LFTs and lipase are much improved. Advance to full liquid diet (per pt preference) - if does well
can advance to low fat tmwr.
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
Subjective
Subjective
Date of Service: November 24, 2023
has not needed pain meds since last pm per patient
no n/v tolerating clears
she does not feel hungry
Objective
Data Reviewed
Laboratory Data:
Laboratory Results
11/24/23 05:49
11/24/23 05:49
Laboratory Results
PT 16.8 Sec (11.4-14.6) H 11/19/23 11:56
INR 1.38 11/19/23 11:56
Magnesium 1.8 mg/dl (1.6-2.3) 11/24/23 05:49
Total Bilirubin 1.4 mg/dl (0.2-1.3) H 11/24/23 05:49
AST 36 U/L (14-36) 11/24/23 05:49
ALT 86 U/L (0-35) H 11/24/23 05:49
Alkaline Phosphatase 91 U/L (38-126) 11/24/23 05:49
Lipase 102 U/L (23-300) 11/24/23 05:49
Vital Signs and I&O:
Vital Signs
Temp Pulse Resp BP Pulse Ox
99.0 F 72 20 153/62 94
11/24/23 07:53 11/24/23 07:53 11/24/23 07:53 11/24/23 07:53 11/24/23 08:00
I&O
11/23/23 11/24/23 11/25/23
06:59 06:59 06:59
Intake Total 2119 4300 / 4300
Output Total 60 / 60 70 / 70 50 / 50
Balance 2059 4230 / 4230 -50 / -50
Physical Exam
Physical Exam
GI: Non Distended and Non Tender
[2023-11-24 15:59] VITALS: BP 142/74
[2023-11-24] MEDS: LOVENOX 40 MG SC (17:04)
[2023-11-24 23:00] VITALS: BP 157/66
[2023-11-25] MEDS: ZOSYN 50 IV ×2 (05:01→12:12)
--- NOTE | 2023-11-25 05:59 | W.PN.GI.CBS2 ---
Today's Communication / Plan
-
Please see assessment and plan for details.
Assessment / Plan
-
1. CBD stone: Postcholecystectomy, status post ERCP with mild post ERCP pancreatitis, now clinically much improved LFTs and lipase are much improved. Will continue full liquids for now.
2. Black stool: Was first bowel movement in a week, could have been some mild oozing related to sphincterotomy and biopsy, doubt significant brisk bleeding now given vital signs, and again first bowel movement in about a week. Will start PPI twice
daily, await morning labs and repeat CBC at noon.
3. 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
Subjective
Subjective
Date of Service: November 25, 2023
Patient feeling okay, did have her first bowel movement about a week, was black, though again her first bowel movement, has less abdominal distention and feels better after this. No fevers or chills. Tolerated liquids yesterday without difficulty.
Objective
Data Reviewed
Laboratory Data:
Laboratory Results
PT 16.8 Sec (11.4-14.6) H 11/19/23 11:56
INR 1.38 11/19/23 11:56
Magnesium 1.8 mg/dl (1.6-2.3) 11/24/23 05:49
Total Bilirubin 1.4 mg/dl (0.2-1.3) H 11/24/23 05:49
AST 36 U/L (14-36) 11/24/23 05:49
ALT 86 U/L (0-35) H 11/24/23 05:49
Alkaline Phosphatase 91 U/L (38-126) 11/24/23 05:49
Lipase 102 U/L (23-300) 11/24/23 05:49
Vital Signs and I&O:
Vital Signs
Temp Pulse Resp BP Pulse Ox
98.4 F 71 16 157/66 96
11/24/23 23:00 11/24/23 23:00 11/24/23 23:00 11/24/23 23:00 11/25/23 01:00
I&O
11/23/23 11/24/23 11/25/23
06:59 06:59 06:59
Intake Total 2120 / 2120 4300 / 4300 2300 / 2300
Output Total 60 / 60 70 / 70 /
Balance 2059 4230 / 4230 2094
Physical Exam
Physical Exam
General: NAD
Abdomen: normal bowel sounds, soft, no tenderness, no masses or bruits, no ascites
--- NOTE | 2023-11-25 06:11 | PTCARENOTE ---
Pt awake this am with one episode of inc of loose stool. Pt ambulatory to bathroom. Pt having large loose BM. Hygiene provided. Attends now in place. IVF discontinued per MD order. Pt denies any specific pain, but reports feelings of generalized
malaise. Call proctor in reach. Will continue to monitor.
[2023-11-25 06:12] LABS: % Basophils 0.2 % (0-2); % Lymphocytes 12.3 % (20.5-51.1); % Monocytes 7.2 % (1.7-9.3); % Neutrophils 79.3 % (42.2-75.2); Absolute Lymphocytes 0.5 10^3/uL (1.2-3.4); Absolute Monocytes 0.3 10^3/uL (0.1-0.6); Absolute Neutrophils 3.3 10^3/uL (1.4-6.5); Hematocrit 24.5 % (37.0-47.0); Hemoglobin 8.2 g/dL (12.0-16.0); Mean Corp Hgb Conc. 33.5 g/dL (33.0-37.0); Mean Corpuscular Hgb 28.7 pg (27.0-31.0); Mean Corpuscular Volume 85.7 fL (81.0-99.0); Mean Platelet Volume 10.3 fL (7.4-10.4); Nucleated Red Blood Cells % 0 %; Platelet Count 143 10^3/uL (130-400); Red Blood Cell Count 2.86 10^6/uL (4.20-5.40); Red Cell Dist. Width 15.9 % (11.5-14.5); White Blood Cell Count 4.1 10^3/uL (4.8-10.8)
[2023-11-25 06:52] LABS: ALT (SGPT) 62 U/L (0-35); AST (SGOT) 30 U/L (14-36); Albumin 2.7 g/dl (3.5-5.0); Alkaline Phosphatase 99 U/L (38-126); Blood Urea Nitrogen 9 mg/dl (7-17); Calcium 8.2 mg/dl (8.4-10.2); Carbon Dioxide 26 mmol/L (22-30); Chloride 101 mmol/L (98-107); Estimated Creatinine Clearance 60 ml/min; Glucose 134 mg/dl (70-99); Lipase 95 U/L (23-300); Potassium 3.8 mmol/L (3.5-5.1); Sodium 133 mmol/L (135-145); Total Bilirubin 1.3 mg/dl (0.2-1.3); Total Protein 5.6 g/dl (6.3-8.2); eGFR > 60.00
[2023-11-25 07:20] VITALS: BP 130/60
[2023-11-25] MEDS: NSS (PRESERVATIVE FREE) 10 ML IV (08:41)
[2023-11-25] MEDS: PROTONIX IV 40 MG IV (08:41)
[2023-11-25] MEDS: NORVASC 2.5 MG PO (08:41)
[2023-11-25] MEDS: FLUSH (NSS) 2 FLUSH IV ×2 (08:41→12:12)
--- NOTE | 2023-11-25 09:31 | CM ---
Addendum entered by Sara Vasquez 11/25/23 13:55:
Patient completed IMM and signed form placed on chart. Patient daughter to transport and will stay with her for a while. [facility] following for support and per patient have arranged for home aides with Home instead. CM will continue to follow for
discharge planning needs.
Plan; home with [facility]
Original Note:
Patient seen at bedside, Patient with belle. Per nursing patient with Leandro drain and currently on fulls. CM will continue to follow for discharge planning needs.
Plan; home with [facility]; watch for needs
--- NOTE | 2023-11-25 12:33 | W.PN.HOSP.TC ---
Addendum entered and electronically signed by Willa Cloud MD 11/25/23 17:29:
Updated daughter on the phone
Addendum entered and electronically signed by Willa Cloud MD 11/25/23 16:25:
total DC time 40 min
Original Note:
Today's Communication/Plan
-
see AP
Assessment / Plan
Assessment / Plan
HPI: 83-year-old female with past medical history of hypertension, hyperlipidemia; p/w right sided Abd pain with radiation to her middle back. She vomited once. She just got over COVID and finished the course of paxlovid.
CT highly suspicious for acute cholecystitis. Zosyn in ER admitting for further management
A/P:
# acute gallstone cholecystitis
s/p perc cholecystectomy 11/17 by GS
abd drain to be removed by GS prior to discharge
DVT ppx with Lovenox SQ
Cont clears for now due to pt's complaint of nausea, hold off on advancing diet
# History of MDS
# anemia of chronic disease
# Acute blood loss anemia from OR
Hgb today at 8.2, was at 10.5 on admission
repeat CBC ordered at noon, if level WNL, then OK for DC
# Essential hypertension
# Bradycardia , resolved
Would not use [employer]GER atenolol for BP control in setting of bradycardia
started low dose Norvasc 2.5 mg daily, cont
IV hydralazine PRN for SBP > 160
# Hypercholesterolemia
resume statin following discharge
# Incidental finding of gastric mass, slightly increased from prior and highly suspicious for neoplasm.
s/p EGD: noted a single subepithelial papule (nodule) found in the stomach. An intramural (subepithelial) lesion was found in the greater curve of the stomach. The lesion appeared to originate from within the muscularis propria. The diagnosis is a
stromal cell (smooth muscle) neoplasm, of indeterminate biological behavior. Fine needle aspiration performed. One stone was visualized endosonographically in the common bile duct.
Refer to a surgeon for surgical management if cytology confirms GIST.
s/p ERCP 11/19 noted filling defect consistent with a stone was seen on the cholangiogram. Choledocholithiasis was found. Complete removal was accomplished by biliary sphincterotomy and balloon extraction.
Follow cytology results outpt
Informed pt to follow up with her outpt Oncologist Dr Case now for the stomach mass
# New transaminitis and elevated lipase due to ERCP
LFT and lipase levels improving and almost normalized
Diet advanced to low fat, pt tolerated well
# New fever noted on 11/21 and 11/22, now resolved
Repeat blood Cx negative
CXR 11/22: Mild to moderate elevation of the right hemidiaphragm, stable. Linear parenchymal opacity within both lower lungs, likely atelectasis. Small bilateral pleural effusions.
Abd XR 11/22: No significantly dilated air-filled loops of bowel are identified. There is no evidence for significant distention of the rectum with stool.
pt has been on Zosyn since admission, received 8 days, would DC further Abx at the time of discharge
Full code
DVT prophylaxis: Lovenox SQ
DW GI and GS
DW RN
Anticipated Discharge: Today
Subjective/Interval History
-
Date of Service: November 25, 2023
Objective Data
-
Labs:
Laboratory Results
11/25/23 11/25/23
04:44 12:23
WBC 4.1 L Pending
Hgb 8.2 L Pending
Hct 24.5 L Pending
Plt Count 143 Pending
Sodium 133 L
Potassium 3.8
Chloride 101
Carbon Dioxide 26
BUN 9
Creatinine 0.6
Glucose 134 H
Calcium 8.2 L
Total Bilirubin 1.3
AST 30
ALT 62 H
Alkaline Phosphatase 99
Vital Signs:
Vital Signs
Temp Pulse Resp BP Pulse Ox
36.6 C 71 16 130/60 97
11/25/23 07:20 11/25/23 08:41 11/25/23 07:20 11/25/23 08:41 11/25/23 08:40
I&O
11/24/23 11/25/23 11/26/23
06:59 06:59 06:59
Intake Total 4300 / 4300 2300 / 2300
Output Total 70 / 70 /
Balance 4230 / 4230 2094 / 2094
Review of Systems
-
All other systems: Reviewed and negative
Abdomen/GI: Denies Abdominal Pain, Nausea or Vomiting
Physical Exam
-
General: Well Developed, Well Nourished, No Apparent Distress, Comfortable and Conversant; Negative Respiratory Distress
HEENT: Normocephalic, Atraumatic, Nose Appears Normal and Ears Appear Normal; Negative Oxygen
Respiratory: Clear to Auscultation and Non Labored Respirations; Negative Accessory Resp Muscle Use
Cardiac: Regular Rhythm and S1/S2
GI: Soft, Nontender, Nondistended, Normal Bowel Sounds and Other (RUQ with drain- to be removed today )
Skin: Warm and Dry
Neuro: Awake and Alert
Psych: Calm and Intact Judgement/Insight
Data Reviewed
-
Diagnostic Radiology: Report Reviewed by me
CT Scan: Report Reviewed by me and Discussed with Patient
Medical Tests (Nuc Med, Echo etc): Report Reviewed by me (EGD/ERCP reports)
Labs: Labs Reviewed by me
[2023-11-25 12:47] LABS: Hematocrit 24.1 % (37.0-47.0); Hemoglobin 7.9 g/dL (12.0-16.0); Mean Corp Hgb Conc. 32.8 g/dL (33.0-37.0); Mean Corpuscular Hgb 28.9 pg (27.0-31.0); Mean Corpuscular Volume 88.3 fL (81.0-99.0); Mean Platelet Volume 9.8 fL (7.4-10.4); Platelet Count 128 10^3/uL (130-400); Red Blood Cell Count 2.73 10^6/uL (4.20-5.40); Red Cell Dist. Width 15.9 % (11.5-14.5)
--- NOTE | 2023-11-25 14:21 | W.PN.GS2 ---
Today's Communication / Plan
-
dispo planning
Assessment / Plan
-
Patient is an 83 yo F POD#6 s/p laparoscopic cholecystectomy for gangrenous cholecystitis, +IOC status post ERCP 11/20/2023 with development of pancreatitis. 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
(path pending).
AFVSS
--Tolerating diet
--Doing well from surgical standpoint
--FRANK drain removed at bedside
--Ok for d/c from surgical standpoint
Subjective Data
-
Date of Service: November 25, 2023
Patient seen and examined at bedside. Denies pain. Tolerating diet.
Objective Data
-
Intake and Output
11/24/23 11/25/23 11/26/23
06:59 06:59 06:59
Intake Total 4300 / 4300 2300 / 2300
Output Total
Balance 4230 / 4230 2094 / 2094
Intake:
Oral fluids 1800 / 1800
IV fluids (Total) 2400 / 2400 2100 / 2100
IV piggybacks 100 / 100 200 / 200
Output:
Drain Output (Total)
Asher-De Oliveira
Other:
Number of approximated MODERATE 2 1
amounts of urine
Number of approximated LARGE 2
amounts of urine
Vital Signs
Temp Pulse Resp BP Pulse Ox
98 F 71 16 130/60 97
11/25/23 07:20 11/25/23 08:41 11/25/23 07:20 11/25/23 08:41 11/25/23 08:40
Lab Results
11/25/23 12:23
11/25/23 04:44
Calcium 8.2 mg/dl (8.4-10.2) L 11/25/23 04:44
Magnesium 2.0 mg/dl (1.6-2.3) 11/25/23 04:44
Total Bilirubin 1.3 mg/dl (0.2-1.3) 11/25/23 04:44
Direct Bilirubin 0.5 mg/dl (0.0-0.4) H 11/18/23 06:26
AST 30 U/L (14-36) 11/25/23 04:44
ALT 62 U/L (0-35) H 11/25/23 04:44
Alkaline Phosphatase 99 U/L (38-126) 11/25/23 04:44
Total Protein 5.6 g/dl (6.3-8.2) L 11/25/23 04:44
Albumin 2.7 g/dl (3.5-5.0) L 11/25/23 04:44
Physical Exam
-
Gen: NAD
Abd: soft, NT, ND, incisions healing well with intact glue. FRANK serosang drainage present
[2023-11-25 15:10] VITALS: BP 120/55
--- NOTE | 2023-11-25 15:32 | VNURNOTE ---
Home Health Liaison spoke with patient over the phone to discuss [facility] nurse/therapy, visits, schedule and homebound status. Patient is agreeable and understands that visits at home will be 2-3 x per week to assess and teach medical management. She
has had our services in the past.
Patient is aware that [facility] will contact them for start of care in 1-2 days after discharge from .
[facility] referral completed in [facility].
[2023-11-25 16:00] VITALS: BP 127/58
--- NOTE | 2023-11-25 16:01 | W.DCSUMMARY ---
Discharge Summary
Discharge Data
Date of Admission: 11/17/23
Date of Discharge: 11/25/23
-
Pending Results: No
Hospital Course
Principal Diagnosis:
acute gallstone cholecystitis status post percutaneous cholecystectomy
Choledocholithiasis status post ERCP
Incidental finding of stomach mass status post EUS with biopsy performed
Transaminitis and elevated lipase level following ERCP which have mostly resolved
Bradycardia, resolved
Acute post op blood loss anemia
Chronic Diagnoses:�
History of myelodysplastic syndrome
Anemia of chronic disease
Essential hypertension
Hypercholesterolemia
Consultations:�
General surgery
Gastroenterology
Procedures:�
Percutaneous cholecystectomy 11/17 by general surgery
ERCP 11/19 with removal of choledocholithiasis
EGS and Upper endoscopic ultrasound 11/19 with biopsy performed.
Clinical course:�
This is a 83-year-old female with past medical history as stated above, who presented with right upper quadrant abdominal pain.
Problem 1:
Right upper quadrant abdominal pain likely due to acute gallstone cholecystitis per CT abdomen pelvis finding.
She underwent perc cholecystectomy on 11/17 by GS.
The abdominal drain that was placed intraoperatively was removed prior to discharge.
She was able to tolerate a low-fat diet prior to discharge.
Problem 2:
Incidental finding of gastric mass, slightly increased from prior and highly suspicious for neoplasm.
She was also noted to have choledocholithiasis.
The patient underwent ERCP for removal of choledocholithiasis.
She had an EGD and EUS to evaluate the gastric mass. 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
The patient has been informed to follow-up with the surgeon and with her outpatient oncologist Dr. Case, now for the stomach cancer/GIST.
Of note, the patient did have new fever noted on 11/21 and 11/22. Her fever has resolved. Her initial and repeat blood cultures were negative.
She did receive Zosyn empirically for 8 days while in the hospital, and no further antibiotic was continued after discharge.
Problem 3:
New transaminitis and elevated lipase due to ERCP.
These levels have largely normalized prior to discharge.
Problem 4:
Acute blood loss anemia postop.
Her Hemoglobin was at 7.9 prior to discharge (baseline hemoglobin is around 10), and she received 1 unit PRBC transfusion to support her hemoglobin prior to discharge.
She was provided a script to check CBC in 1 week with result to her PCP.
Problem 5:
Bradycardia, resolved after discontinuation of atenolol which the patient was taking for her high blood pressure.
She was started with Norvasc 2.5 mg for blood pressure control, which she can continue going forward.
As for the rest of her medical problems, they were stable during her hospital stay.
Discharge Plan
-
Patient Disposition: Home (Routine Discharge)
Discharge Diagnosis/Procedures: Acute cholecystitis status post laparoscopic cholecystectomy; choledocholithiasis status post ERCP with stone removal; pancreatitis (resolved) following ERCP; gastric mass (suspect GIST) status post biopsy
Condition: Fair
Diet: No restrictions, Low Fat, Low Cholesterol and 2 Gram Sodium
Activity: No strenuous activity
Driving Restrictions: As prior to admission
Bathing Restrictions: OK to Shower
Blood Work: CBC in 1 week, result to PCP
Activity Restrictions/Additional Instructions:
Instructions following Laparoscopic Cholecystectomy
Please call [phone] if you have any questions or concerns after your surgery.
Wound Care:
Your incisions are covered with skin glue which will come off on its own in 5-10 days.
It is ok to shower the day after your surgery. Do not scrub the incisions, let soap and water wash over them and pat dry.
� Bruising around your incisions is normal.
� Using ice packs will help minimize this swelling.
� No swimming or soaking incisions for 1 week.
� Your stitches will dissolve and do not need to be removed.
Urinary retention:
If you are unable to urinate 6-8 hours after your surgery, please call [phone] to discuss further management.
Activity:
No heavy lifting more than 15 pounds for the next 3 weeks, then you may gradually lift heavier objects as tolerated by discomfort. Otherwise activity as tolerated by your comfort level.
Pain Management:
Use Tylenol, ibuprofen and ice packs to treat your pain.
� You may take 650 milligrams of Tylenol (Max 3 grams per day) every 6 hours, and 600 mg of ibuprofen also every 6 hours. (you can alternate them every 3 hours)
� You may use an ice pack to your incision as needed.
� If you still have pain not controlled by these measures, take your prescription pain medication as prescribed.
Medications:
You may resume your home medications.
Bowel Medications:
Prescription pain medication can make you constipated. If you take this medication, also take colace 100 mg twice daily (this is over the counter). If this is not sufficient, you may take Miralax (polyethylene glycol) to help move your bowels.
Diet:
After your procedure, there are no dietary restrictions. However, you may notice some loose stools with fatty meals for up to 4 weeks after surgery. If this is the case, please adjust to a low fat diet as needed.
Driving restrictions:
No driving if you are taking prescription pain medication or if you think your normal reaction time and attentiveness has been slowed by your surgery.
Things to Look out for:
Worsening Abdominal pain, fever, jaundice, redness or drainage from incision
Call Doctor for:
Please call if you notice worsening redness or drainage from incision(s) lasting longer than 5 days after your surgery, any foul-smelling drainage from the incision, pain not controlled by pain medications, persistent nausea and vomiting, or for any
fevers greater than 101.3 F. The number for questions/concerns is [phone]
Follow-up:
A follow-up appointment will be scheduled with your surgeon in 3-4 weeks. Please call prior to your appointment if you have any questions or concerns. [phone]
Referrals:
Negra Case MD [Active] - in one to two weeks
Yg Scott DO [Family Provider] - in less than 1 week
Moris Fofana MD [Active] - in one to two days
Additional Discharge Medication Instructions: Stop atenolol due to bradycardia (slow heart rate).
You were started with Norvasc 2.5 mg daily for blood pressure control
Prescriptions:
New
amlodipine 2.5 mg Tablet
2.5 mg PO DAILY Qty: 30 0RF
Continued
lovastatin 20 MG tablet
20 mg PO DAILY
calcium citrate-vitamin D3 [Citracal + D Maximum] 1 EACH tablet
1 ea PO Daily
Discontinued
atenolol 50 MG tablet
50 mg PO DAILY
Discharge Orders:
Discharge Patient (As Directed); Ordered 11/25/23
Ordered By: Willa Cloud
Discharge Date and Time
Print Language: KYRGYZ
[2023-11-25 16:28] VITALS: BP 124/56
[2023-11-25 19:24] VITALS: BP 120/51
== END 2023-11-25 20:04 | disposition home health service (06) | DRG 418 ==
LOC: 2 SOUTH 21:53
PROVIDERS: Internal Medicine Gastroenterology; Nurse Practitioner Adult Health; Registered Nurse; Surgery; ADMITTING PHYSICIAN Internal Medicine; ATTENDING PHYSICIAN Internal Medicine; CONSULT PHYSICIAN Internal Medicine Gastroenterology; EMERGENCY PHYSICIAN Emergency Medicine; FAMILY PHYSICIAN Student in an Organized Health Care Education/Training Program
PROC: BF141ZZ Fluoroscopy of Gallbladder, Bile Ducts and Pancreatic Ducts using Low Osmolar Contrast (ICD-10-PCS; 2023-11-18)
PROC: 0FT44ZZ Resection of Gallbladder, Percutaneous Endoscopic Approach (ICD-10-PCS; 2023-11-18)
PROC: 0DNU4ZZ Release Omentum, Percutaneous Endoscopic Approach (ICD-10-PCS; 2023-11-18)
PROC: 0FC98ZZ Extirpation of Matter from Common Bile Duct, Via Natural or Artificial Opening Endoscopic (ICD-10-PCS; 2023-11-20)
PROC: BF111ZZ Fluoroscopy of Biliary and Pancreatic Ducts using Low Osmolar Contrast (ICD-10-PCS; 2023-11-20)
PROC: 0F7D8ZZ Dilation of Pancreatic Duct, Via Natural or Artificial Opening Endoscopic (ICD-10-PCS; 2023-11-20)
PROC: 0F778ZZ Dilation of Common Hepatic Duct, Via Natural or Artificial Opening Endoscopic (ICD-10-PCS; 2023-11-20)
PROC: 0D968ZX Drainage of Stomach, Via Natural or Artificial Opening Endoscopic, Diagnostic (ICD-10-PCS; 2023-11-20)
PROC: 30233N1 Transfusion of Nonautologous Red Blood Cells into Peripheral Vein, Percutaneous Approach (ICD-10-PCS; 2023-11-25)
DX: K80.62 Calculus of gallbladder and bile duct with acute cholecystitis without obstruction (principal); C49.A2 Gastrointestinal stromal tumor of stomach; D62 Acute posthemorrhagic anemia; E78.00 Pure hypercholesterolemia, unspecified; I10 Essential (primary) hypertension; D63.8 Anemia in other chronic diseases classified elsewhere; K82.A1 Gangrene of gallbladder in cholecystitis; M54.6 Pain in thoracic spine; R74.01 Elevation of levels of liver transaminase levels; D46.9 Myelodysplastic syndrome, unspecified; G89.29 Other chronic pain; M81.0 Age-related osteoporosis without current pathological fracture; F41.9 Anxiety disorder, unspecified; M54.16 Radiculopathy, lumbar region; M19.011 Primary osteoarthritis, right shoulder; Z96.653 Presence of artificial knee joint, bilateral; Z86.16 Personal history of COVID-19; Z88.5 Allergy status to narcotic agent; Z80.52 Family history of malignant neoplasm of bladder; K66.0 Peritoneal adhesions (postprocedural) (postinfection)
CPT/HCPCS: 88173; 88304; 88305; 71046; 71275; 74018; 74174; 74300; 74330; 76000; 80053; 81003; 82248; 83690; 83735; 84484; 85025; 85027; 85379; 85610; 86850; 86900; 86901; 86920; 87040; 88341; 88342; 93005; 99285; A4300; C1726; C1769; P9016; Q9967

== ENCOUNTER → 2023-12-06 10:59 | Outpatient (REF) | payer OTHER, SELFPAY ==
[2023-12-06 12:05] LABS: % Basophils 0.9 % (0-2); % Immature Granulocytes 0.3 % (0-0.5); % Lymphocytes 34.6 % (20.5-51.1); % Monocytes 12.5 % (1.7-9.3); % Neutrophils 51.7 % (42.2-75.2); Absolute Lymphocytes 1.1 10^3/uL (1.2-3.4); Absolute Monocytes 0.4 10^3/uL (0.1-0.6); Absolute Neutrophils 1.7 10^3/uL (1.4-6.5); Hematocrit 28.3 % (37.0-47.0); Hemoglobin 9.4 g/dL (12.0-16.0); Mean Corp Hgb Conc. 33.2 g/dL (33.0-37.0); Mean Corpuscular Hgb 28.6 pg (27.0-31.0); Mean Platelet Volume 9.6 fL (7.4-10.4); Nucleated Red Blood Cells % 0 %; Platelet Count 264 10^3/uL (130-400); Red Blood Cell Count 3.29 10^6/uL (4.20-5.40); Red Cell Dist. Width 15.9 % (11.5-14.5); White Blood Cell Count 3.3 10^3/uL (4.8-10.8)
== END ==
LOC: REG 10:59
PROVIDERS: ATTENDING PHYSICIAN Internal Medicine Hematology & Oncology; FAMILY PHYSICIAN Physician Assistant Medical
DX: D72.819 Decreased white blood cell count, unspecified (principal); D46.9 Myelodysplastic syndrome, unspecified; C91.Z0 Other lymphoid leukemia not having achieved remission
CPT/HCPCS: 36415; 85025

== ENCOUNTER → 2023-12-13 10:58 | Outpatient (REF) | payer OTHER, SELFPAY ==
[2023-12-13 12:40] LABS: % Basophils 0.8 % (0-2); % Immature Granulocytes 0.8 % (0-0.5); % Monocytes 14.5 % (1.7-9.3); % Neutrophils 45.9 % (42.2-75.2); Absolute Lymphocytes 0.9 10^3/uL (1.2-3.4); Absolute Monocytes 0.4 10^3/uL (0.1-0.6); Absolute Neutrophils 1.1 10^3/uL (1.4-6.5); Hemoglobin 9.9 g/dL (12.0-16.0); Mean Corpuscular Hgb 29.2 pg (27.0-31.0); Mean Corpuscular Volume 88.5 fL (81.0-99.0); Mean Platelet Volume 10.3 fL (7.4-10.4); Nucleated Red Blood Cells % 0 %; Platelet Count 172 10^3/uL (130-400); Red Blood Cell Count 3.39 10^6/uL (4.20-5.40); Red Cell Dist. Width 18.1 % (11.5-14.5); White Blood Cell Count 2.4 10^3/uL (4.8-10.8)
== END ==
LOC: REG 10:58
PROVIDERS: ATTENDING PHYSICIAN Internal Medicine Hematology & Oncology; FAMILY PHYSICIAN Physician Assistant Medical
DX: D72.819 Decreased white blood cell count, unspecified (principal); D46.9 Myelodysplastic syndrome, unspecified; C91.Z0 Other lymphoid leukemia not having achieved remission
CPT/HCPCS: 36415; 85025

== ENCOUNTER → 2023-12-20 07:43 | Outpatient (REF) | payer OTHER, SELFPAY ==
[2023-12-20 08:27] LABS: % Basophils 0.4 % (0-2); % Immature Granulocytes 0.4 % (0-0.5); % Lymphocytes 36.3 % (20.5-51.1); % Monocytes 16.5 % (1.7-9.3); % Neutrophils 46.4 % (42.2-75.2); Absolute Monocytes 0.5 10^3/uL (0.1-0.6); Absolute Neutrophils 1.3 10^3/uL (1.4-6.5); Hematocrit 32.2 % (37.0-47.0); Hemoglobin 10.3 g/dL (12.0-16.0); Mean Corpuscular Hgb 29.4 pg (27.0-31.0); Mean Platelet Volume 9.8 fL (7.4-10.4); Nucleated Red Blood Cells % 0 %; Platelet Count 153 10^3/uL (130-400); Red Cell Dist. Width 19.1 % (11.5-14.5); White Blood Cell Count 2.7 10^3/uL (4.8-10.8)
== END ==
LOC: REG 07:43
PROVIDERS: ATTENDING PHYSICIAN Internal Medicine Hematology & Oncology; FAMILY PHYSICIAN Physician Assistant Medical
DX: D72.819 Decreased white blood cell count, unspecified (principal); D46.9 Myelodysplastic syndrome, unspecified; C91.Z0 Other lymphoid leukemia not having achieved remission
CPT/HCPCS: 36415; 85025

== ENCOUNTER → 2023-12-25 07:27 | Outpatient (REF) | payer OTHER, SELFPAY ==
[2023-12-25 08:27] LABS: % Basophils 0.8 % (0-2); % Immature Granulocytes 0.4 % (0-0.5); % Monocytes 15.1 % (1.7-9.3); % Neutrophils 41.7 % (42.2-75.2); Absolute Monocytes 0.4 10^3/uL (0.1-0.6); Hematocrit 30.9 % (37.0-47.0); Hemoglobin 10.1 g/dL (12.0-16.0); Mean Corp Hgb Conc. 32.7 g/dL (33.0-37.0); Mean Corpuscular Hgb 29.3 pg (27.0-31.0); Mean Corpuscular Volume 89.6 fL (81.0-99.0); Mean Platelet Volume 9.7 fL (7.4-10.4); Nucleated Red Blood Cells % 0 %; Platelet Count 152 10^3/uL (130-400); Red Blood Cell Count 3.45 10^6/uL (4.20-5.40); Red Cell Dist. Width 18.7 % (11.5-14.5); White Blood Cell Count 2.5 10^3/uL (4.8-10.8)
== END ==
LOC: REG 07:27
PROVIDERS: ATTENDING PHYSICIAN Internal Medicine Hematology & Oncology; FAMILY PHYSICIAN Physician Assistant Medical
DX: D72.819 Decreased white blood cell count, unspecified (principal); D46.9 Myelodysplastic syndrome, unspecified; C91.Z0 Other lymphoid leukemia not having achieved remission
CPT/HCPCS: 36415; 85025

== ENCOUNTER → 2024-01-03 11:06 | Outpatient (REF) | payer OTHER, SELFPAY ==
[2024-01-03 11:41] LABS: % Basophils 0.8 % (0-2); % Immature Granulocytes 0.4 % (0-0.5); % Lymphocytes 35.2 % (20.5-51.1); % Monocytes 13.3 % (1.7-9.3); % Neutrophils 50.3 % (42.2-75.2); Absolute Lymphocytes 0.9 10^3/uL (1.2-3.4); Absolute Monocytes 0.4 10^3/uL (0.1-0.6); Absolute Neutrophils 1.3 10^3/uL (1.4-6.5); Hematocrit 32.5 % (37.0-47.0); Hemoglobin 10.9 g/dL (12.0-16.0); Mean Corp Hgb Conc. 33.5 g/dL (33.0-37.0); Mean Corpuscular Hgb 29.7 pg (27.0-31.0); Mean Corpuscular Volume 88.6 fL (81.0-99.0); Mean Platelet Volume 10.5 fL (7.4-10.4); Nucleated Red Blood Cells % 0 %; Platelet Count 173 10^3/uL (130-400); Red Blood Cell Count 3.67 10^6/uL (4.20-5.40); Red Cell Dist. Width 17.5 % (11.5-14.5); White Blood Cell Count 2.6 10^3/uL (4.8-10.8)
== END ==
LOC: REG 11:06
PROVIDERS: ATTENDING PHYSICIAN Internal Medicine Hematology & Oncology; FAMILY PHYSICIAN Physician Assistant Medical
DX: D72.819 Decreased white blood cell count, unspecified (principal); D46.9 Myelodysplastic syndrome, unspecified; C91.Z0 Other lymphoid leukemia not having achieved remission
CPT/HCPCS: 36415; 85025

== ENCOUNTER → 2024-01-10 11:46 | Outpatient (REF) | payer OTHER, SELFPAY ==
[2024-01-10 13:25] LABS: % Basophils 0.7 % (0-2); % Immature Granulocytes 0.7 % (0-0.5); % Lymphocytes 34.4 % (20.5-51.1); % Monocytes 14.6 % (1.7-9.3); % Neutrophils 49.6 % (42.2-75.2); Absolute Monocytes 0.4 10^3/uL (0.1-0.6); Absolute Neutrophils 1.5 10^3/uL (1.4-6.5); Hematocrit 32.5 % (37.0-47.0); Hemoglobin 10.7 g/dL (12.0-16.0); Mean Corp Hgb Conc. 32.9 g/dL (33.0-37.0); Mean Corpuscular Hgb 29.3 pg (27.0-31.0); Mean Platelet Volume 9.5 fL (7.4-10.4); Nucleated Red Blood Cells % 0 %; Platelet Count 133 10^3/uL (130-400); Red Blood Cell Count 3.65 10^6/uL (4.20-5.40); Red Cell Dist. Width 16.9 % (11.5-14.5); White Blood Cell Count 2.9 10^3/uL (4.8-10.8)
== END ==
LOC: REG 11:46
PROVIDERS: ATTENDING PHYSICIAN Internal Medicine Hematology & Oncology; FAMILY PHYSICIAN Physician Assistant Medical
DX: D72.819 Decreased white blood cell count, unspecified (principal); D46.9 Myelodysplastic syndrome, unspecified; C91.Z0 Other lymphoid leukemia not having achieved remission
CPT/HCPCS: 36415; 85025

== ENCOUNTER → 2024-01-17 14:32 | Outpatient (REF) | payer OTHER, SELFPAY ==
[2024-01-17 15:25] LABS: % Basophils 0.7 % (0-2); % Immature Granulocytes 0.3 % (0-0.5); % Lymphocytes 39.9 % (20.5-51.1); % Monocytes 16.1 % (1.7-9.3); Absolute Lymphocytes 1.1 10^3/uL (1.2-3.4); Absolute Monocytes 0.5 10^3/uL (0.1-0.6); Absolute Neutrophils 1.2 10^3/uL (1.4-6.5); Hematocrit 32.6 % (37.0-47.0); Hemoglobin 10.7 g/dL (12.0-16.0); Mean Corp Hgb Conc. 32.8 g/dL (33.0-37.0); Mean Corpuscular Hgb 28.9 pg (27.0-31.0); Mean Corpuscular Volume 88.1 fL (81.0-99.0); Mean Platelet Volume 9.4 fL (7.4-10.4); Nucleated Red Blood Cells % 0 %; Platelet Count 144 10^3/uL (130-400); Red Cell Dist. Width 16.1 % (11.5-14.5); White Blood Cell Count 2.9 10^3/uL (4.8-10.8)
== END ==
LOC: REG 14:32
PROVIDERS: ATTENDING PHYSICIAN Internal Medicine Hematology & Oncology; FAMILY PHYSICIAN Physician Assistant Medical
DX: D72.819 Decreased white blood cell count, unspecified (principal); D46.9 Myelodysplastic syndrome, unspecified; C91.Z0 Other lymphoid leukemia not having achieved remission
CPT/HCPCS: 36415; 85025

== ENCOUNTER → 2024-01-25 10:38 | Outpatient (REF) | payer OTHER, SELFPAY ==
[2024-01-25 11:35] LABS: % Immature Granulocytes 0.3 % (0-0.5); % Lymphocytes 37.2 % (20.5-51.1); % Monocytes 11.5 % (1.7-9.3); Absolute Lymphocytes 1.1 10^3/uL (1.2-3.4); Absolute Monocytes 0.4 10^3/uL (0.1-0.6); Absolute Neutrophils 1.5 10^3/uL (1.4-6.5); Hematocrit 35.1 % (37.0-47.0); Hemoglobin 11.7 g/dL (12.0-16.0); Mean Corp Hgb Conc. 33.3 g/dL (33.0-37.0); Mean Corpuscular Hgb 29.3 pg (27.0-31.0); Mean Platelet Volume 9.8 fL (7.4-10.4); Nucleated Red Blood Cells % 0 %; Platelet Count 163 10^3/uL (130-400); Red Blood Cell Count 3.99 10^6/uL (4.20-5.40); Red Cell Dist. Width 15.9 % (11.5-14.5)
== END ==
LOC: REG 10:38
PROVIDERS: ATTENDING PHYSICIAN Internal Medicine Hematology & Oncology; FAMILY PHYSICIAN Physician Assistant Medical
DX: D72.819 Decreased white blood cell count, unspecified (principal); D46.9 Myelodysplastic syndrome, unspecified; C91.Z0 Other lymphoid leukemia not having achieved remission
CPT/HCPCS: 36415; 85025

== ENCOUNTER → 2024-02-01 11:34 | Outpatient (REF) | payer OTHER, SELFPAY ==
[2024-02-01 12:40] LABS: % Basophils 0.6 % (0-2); % Immature Granulocytes 0.9 % (0-0.5); % Lymphocytes 37.6 % (20.5-51.1); % Monocytes 13.8 % (1.7-9.3); % Neutrophils 47.1 % (42.2-75.2); Absolute Lymphocytes 1.2 10^3/uL (1.2-3.4); Absolute Monocytes 0.5 10^3/uL (0.1-0.6); Absolute Neutrophils 1.5 10^3/uL (1.4-6.5); Hematocrit 34.2 % (37.0-47.0); Hemoglobin 11.4 g/dL (12.0-16.0); Mean Corp Hgb Conc. 33.3 g/dL (33.0-37.0); Mean Corpuscular Hgb 29.2 pg (27.0-31.0); Mean Corpuscular Volume 87.5 fL (81.0-99.0); Nucleated Red Blood Cells % 0 %; Platelet Count 167 10^3/uL (130-400); Red Blood Cell Count 3.91 10^6/uL (4.20-5.40); Red Cell Dist. Width 15.9 % (11.5-14.5); White Blood Cell Count 3.3 10^3/uL (4.8-10.8)
== END ==
LOC: REG 11:34
PROVIDERS: ATTENDING PHYSICIAN Internal Medicine Hematology & Oncology; FAMILY PHYSICIAN Physician Assistant Medical
DX: D72.819 Decreased white blood cell count, unspecified (principal); D46.9 Myelodysplastic syndrome, unspecified; C91.Z0 Other lymphoid leukemia not having achieved remission
CPT/HCPCS: 36415; 85025

== ENCOUNTER → 2024-02-08 09:24 | Outpatient (REF) | payer OTHER, SELFPAY ==
[2024-02-08 11:38] LABS: % Basophils 1.2 % (0-2); % Immature Granulocytes 0.4 % (0-0.5); % Lymphocytes 40.3 % (20.5-51.1); % Neutrophils 44.1 % (42.2-75.2); Absolute Monocytes 0.4 10^3/uL (0.1-0.6); Absolute Neutrophils 1.1 10^3/uL (1.4-6.5); Hematocrit 33.9 % (37.0-47.0); Hemoglobin 11.2 g/dL (12.0-16.0); Mean Corpuscular Hgb 29.4 pg (27.0-31.0); Mean Platelet Volume 10.1 fL (7.4-10.4); Nucleated Red Blood Cells % 0 %; Platelet Count 141 10^3/uL (130-400); Red Blood Cell Count 3.81 10^6/uL (4.20-5.40); Red Cell Dist. Width 15.8 % (11.5-14.5); White Blood Cell Count 2.6 10^3/uL (4.8-10.8)
== END ==
LOC: REG 09:24
PROVIDERS: ATTENDING PHYSICIAN Internal Medicine Hematology & Oncology
DX: D72.819 Decreased white blood cell count, unspecified (principal); D46.9 Myelodysplastic syndrome, unspecified; C91.Z0 Other lymphoid leukemia not having achieved remission
CPT/HCPCS: 36415; 85025

== ENCOUNTER → 2024-02-14 10:51 | Outpatient (REF) | payer OTHER, SELFPAY ==
[2024-02-14 11:37] LABS: % Basophils 0.7 % (0-2); % Immature Granulocytes 0.7 % (0-0.5); % Lymphocytes 36.2 % (20.5-51.1); % Monocytes 12.2 % (1.7-9.3); % Neutrophils 50.2 % (42.2-75.2); Absolute Monocytes 0.3 10^3/uL (0.1-0.6); Absolute Neutrophils 1.4 10^3/uL (1.4-6.5); Hematocrit 33.7 % (37.0-47.0); Hemoglobin 11.3 g/dL (12.0-16.0); Mean Corp Hgb Conc. 33.5 g/dL (33.0-37.0); Mean Corpuscular Hgb 29.3 pg (27.0-31.0); Mean Corpuscular Volume 87.3 fL (81.0-99.0); Mean Platelet Volume 9.9 fL (7.4-10.4); Nucleated Red Blood Cells % 0 %; Platelet Count 132 10^3/uL (130-400); Red Blood Cell Count 3.86 10^6/uL (4.20-5.40); Red Cell Dist. Width 15.9 % (11.5-14.5); White Blood Cell Count 2.8 10^3/uL (4.8-10.8)
[2024-02-14 12:28] LABS: ALT (SGPT) 20 U/L (0-35); AST (SGOT) 37 U/L (14-36); Albumin 4.3 g/dl (3.5-5.0); Alkaline Phosphatase 66 U/L (38-126); Blood Urea Nitrogen 19 mg/dl (7-17); Calcium 9.5 mg/dl (8.4-10.2); Carbon Dioxide 30 mmol/L (22-30); Chloride 102 mmol/L (98-107); Glucose 139 mg/dl (70-99); Potassium 4.2 mmol/L (3.5-5.1); Sodium 144 mmol/L (135-145); Total Bilirubin 1.5 mg/dl (0.2-1.3); Total Protein 7.3 g/dl (6.3-8.2)
== END ==
LOC: REG 10:51
PROVIDERS: ATTENDING PHYSICIAN Internal Medicine Hematology & Oncology; FAMILY PHYSICIAN Physician Assistant Medical
DX: D72.819 Decreased white blood cell count, unspecified (principal); D46.9 Myelodysplastic syndrome, unspecified; C91.Z0 Other lymphoid leukemia not having achieved remission; C49.A2 Gastrointestinal stromal tumor of stomach
CPT/HCPCS: 36415; 80053; 85025

== ENCOUNTER → 2024-02-17 12:12 | Outpatient (REF) | payer OTHER, SELFPAY | LOC: RAD 12:12 | PROVIDERS: ATTENDING PHYSICIAN Internal Medicine Hematology & Oncology; FAMILY PHYSICIAN Physician Assistant Medical | DX: D72.819 Decreased white blood cell count, unspecified (principal); D46.9 Myelodysplastic syndrome, unspecified; C91.Z0 Other lymphoid leukemia not having achieved remission; C49.A2 Gastrointestinal stromal tumor of stomach | CPT/HCPCS: 74178; Q9967 ==

== ENCOUNTER → 2024-02-28 10:27 | Outpatient (REF) | payer OTHER, SELFPAY ==
[2024-02-28 11:40] LABS: ALT (SGPT) 20 U/L (0-35); AST (SGOT) 40 U/L (14-36); Albumin 4.3 g/dl (3.5-5.0); Alkaline Phosphatase 73 U/L (38-126); Blood Urea Nitrogen 17 mg/dl (7-17); Calcium 9.4 mg/dl (8.4-10.2); Carbon Dioxide 30 mmol/L (22-30); Chloride 101 mmol/L (98-107); Glucose 105 mg/dl (70-99); Potassium 4.2 mmol/L (3.5-5.1); Sodium 141 mmol/L (135-145); Total Bilirubin 1.8 mg/dl (0.2-1.3); Total Protein 7.4 g/dl (6.3-8.2); eGFR > 60.00
[2024-02-28 11:45] LABS: % Basophils 1.1 % (0-2); % Immature Granulocytes 0.7 % (0-0.5); % Lymphocytes 39.1 % (20.5-51.1); % Monocytes 12.9 % (1.7-9.3); % Neutrophils 46.2 % (42.2-75.2); Absolute Lymphocytes 1.1 10^3/uL (1.2-3.4); Absolute Monocytes 0.4 10^3/uL (0.1-0.6); Absolute Neutrophils 1.3 10^3/uL (1.4-6.5); Hematocrit 34.4 % (37.0-47.0); Hemoglobin 11.5 g/dL (12.0-16.0); Mean Corp Hgb Conc. 33.4 g/dL (33.0-37.0); Mean Corpuscular Volume 86.9 fL (81.0-99.0); Mean Platelet Volume 9.7 fL (7.4-10.4); Nucleated Red Blood Cells % 0 %; Platelet Count 144 10^3/uL (130-400); Red Blood Cell Count 3.96 10^6/uL (4.20-5.40); White Blood Cell Count 2.8 10^3/uL (4.8-10.8)
== END ==
LOC: REG 10:27
PROVIDERS: ATTENDING PHYSICIAN Internal Medicine Hematology & Oncology; FAMILY PHYSICIAN Physician Assistant Medical
DX: D72.819 Decreased white blood cell count, unspecified (principal); D46.9 Myelodysplastic syndrome, unspecified; C91.Z0 Other lymphoid leukemia not having achieved remission
CPT/HCPCS: 36415; 80053; 85025

== ENCOUNTER → 2024-03-21 10:32 | Outpatient (REF) | payer OTHER, SELFPAY ==
[2024-03-21 11:11] LABS: % Basophils 0.4 % (0-2); % Immature Granulocytes 0.4 % (0-0.5); % Lymphocytes 39.8 % (20.5-51.1); % Monocytes 14.7 % (1.7-9.3); % Neutrophils 44.7 % (42.2-75.2); Absolute Monocytes 0.4 10^3/uL (0.1-0.6); Absolute Neutrophils 1.2 10^3/uL (1.4-6.5); Hematocrit 33.7 % (37.0-47.0); Mean Corp Hgb Conc. 32.6 g/dL (33.0-37.0); Mean Corpuscular Hgb 28.6 pg (27.0-31.0); Mean Corpuscular Volume 87.5 fL (81.0-99.0); Nucleated Red Blood Cells % 0 %; Platelet Count 154 10^3/uL (130-400); Red Blood Cell Count 3.85 10^6/uL (4.20-5.40); Red Cell Dist. Width 16.3 % (11.5-14.5); White Blood Cell Count 2.6 10^3/uL (4.8-10.8)
[2024-03-21 11:42] LABS: ALT (SGPT) 22 U/L (0-35); AST (SGOT) 33 U/L (14-36); Alkaline Phosphatase 55 U/L (38-126); Blood Urea Nitrogen 17 mg/dl (7-17); Calcium 9.2 mg/dl (8.4-10.2); Carbon Dioxide 29 mmol/L (22-30); Chloride 102 mmol/L (98-107); Glucose 117 mg/dl (70-99); Sodium 141 mmol/L (135-145); Total Bilirubin 1.4 mg/dl (0.2-1.3); Total Protein 6.8 g/dl (6.3-8.2); eGFR > 60.00
== END ==
LOC: REG 10:32
PROVIDERS: ATTENDING PHYSICIAN Internal Medicine Hematology & Oncology; FAMILY PHYSICIAN Physician Assistant Medical; REFERRING PHYSICIAN Surgery
DX: D72.818 Other decreased white blood cell count (principal); D46.9 Myelodysplastic syndrome, unspecified; C91.Z0 Other lymphoid leukemia not having achieved remission; C49.A2 Gastrointestinal stromal tumor of stomach
CPT/HCPCS: 36415; 80053; 85025

== ENCOUNTER → 2024-04-10 11:58 | Outpatient (REF) | payer OTHER, SELFPAY ==
[2024-04-10 15:07] LABS: ALT (SGPT) 21 U/L (0-35); AST (SGOT) 37 U/L (14-36); Albumin 4.3 g/dl (3.5-5.0); Alkaline Phosphatase 64 U/L (38-126); Blood Urea Nitrogen 15 mg/dl (7-17); Calcium 9.4 mg/dl (8.4-10.2); Carbon Dioxide 29 mmol/L (22-30); Chloride 101 mmol/L (98-107); Glucose 111 mg/dl (70-99); Potassium 4.4 mmol/L (3.5-5.1); Sodium 143 mmol/L (135-145); Total Bilirubin 1.9 mg/dl (0.2-1.3); Total Protein 7.5 g/dl (6.3-8.2)
[2024-04-10 15:19] LABS: % Basophils 0.9 % (0-2); % Lymphocytes 44.7 % (20.5-51.1); % Monocytes 17.7 % (1.7-9.3); % Neutrophils 36.7 % (42.2-75.2); Absolute Monocytes 0.4 10^3/uL (0.1-0.6); Hematocrit 34.2 % (37.0-47.0); Hemoglobin 11.1 g/dL (12.0-16.0); Mean Corp Hgb Conc. 32.5 g/dL (33.0-37.0); Mean Corpuscular Hgb 28.6 pg (27.0-31.0); Mean Corpuscular Volume 88.1 fL (81.0-99.0); Mean Platelet Volume 9.9 fL (7.4-10.4); Nucleated Red Blood Cells % 0 %; Platelet Count 150 10^3/uL (130-400); Red Blood Cell Count 3.88 10^6/uL (4.20-5.40); Red Cell Dist. Width 17.3 % (11.5-14.5); White Blood Cell Count 2.2 10^3/uL (4.8-10.8)
[2024-04-10 15:20] LABS: Absolute Neutrophils 0.8 10^3/uL (1.4-6.5)
== END ==
LOC: REG 11:58
PROVIDERS: ATTENDING PHYSICIAN Internal Medicine Hematology & Oncology; FAMILY PHYSICIAN Physician Assistant Medical
DX: D72.819 Decreased white blood cell count, unspecified (principal); D46.9 Myelodysplastic syndrome, unspecified; C91.Z0 Other lymphoid leukemia not having achieved remission; C49.A2 Gastrointestinal stromal tumor of stomach
CPT/HCPCS: 36415; 80053; 85025

== ENCOUNTER → 2024-05-01 11:18 | Outpatient (REF) | payer OTHER, SELFPAY ==
[2024-05-01 14:00] LABS: ALT (SGPT) 27 U/L (0-35); AST (SGOT) 43 U/L (14-36); Albumin 4.2 g/dl (3.5-5.0); Alkaline Phosphatase 53 U/L (38-126); Blood Urea Nitrogen 24 mg/dl (7-17); Calcium 9.6 mg/dl (8.4-10.2); Carbon Dioxide 29 mmol/L (22-30); Chloride 100 mmol/L (98-107); Glucose 146 mg/dl (70-99); Potassium 4.1 mmol/L (3.5-5.1); Sodium 140 mmol/L (135-145); Total Bilirubin 1.3 mg/dl (0.2-1.3); Total Protein 7.3 g/dl (6.3-8.2); eGFR > 60.00
[2024-05-01 14:26] LABS: Atypical Lymphocytes 3 %; Lymphocytes 47 % (20-51); Monocytes 9 % (2-9)
[2024-05-01 14:27] LABS: Normal RBC Morphology Yes; Platelets Checked Yes; Total Cells Counted 100
[2024-05-01 14:30] LABS: Hematocrit 35.5 % (37.0-47.0); Hemoglobin 11.6 g/dL (12.0-16.0); Mean Corp Hgb Conc. 32.7 g/dL (33.0-37.0); Mean Corpuscular Hgb 29.2 pg (27.0-31.0); Mean Corpuscular Volume 89.4 fL (81.0-99.0); Mean Platelet Volume 9.6 fL (7.4-10.4); Platelet Count 139 10^3/uL (130-400); Red Blood Cell Count 3.97 10^6/uL (4.20-5.40); Red Cell Dist. Width 16.4 % (11.5-14.5); White Blood Cell Count 2.1 10^3/uL (4.8-10.8)
[2024-05-01 14:32] LABS: Absolute Neutrophils -Man Diff 0.8 10^3/uL (1.4-6.5); Band Neutrophils 2 % (0-3); Segmented Neutrophils 38 % (42-75)
== END ==
LOC: REG 11:18
PROVIDERS: ATTENDING PHYSICIAN Internal Medicine Hematology & Oncology
DX: D72.819 Decreased white blood cell count, unspecified (principal); D46.9 Myelodysplastic syndrome, unspecified; C91.Z0 Other lymphoid leukemia not having achieved remission; C49.A2 Gastrointestinal stromal tumor of stomach
CPT/HCPCS: 36415; 80053; 85025

== ENCOUNTER → 2024-05-22 09:22 | Outpatient (REF) | payer OTHER, SELFPAY ==
[2024-05-22 12:16] LABS: % Basophils 0.7 % (0-2); % Immature Granulocytes 0.7 % (0-0.5); % Lymphocytes 33.7 % (20.5-51.1); % Monocytes 16.7 % (1.7-9.3); % Neutrophils 48.2 % (42.2-75.2); Absolute Monocytes 0.5 10^3/uL (0.1-0.6); Absolute Neutrophils 1.5 10^3/uL (1.4-6.5); Hematocrit 37.3 % (37.0-47.0); Hemoglobin 11.8 g/dL (12.0-16.0); Mean Corp Hgb Conc. 31.6 g/dL (33.0-37.0); Mean Corpuscular Hgb 28.5 pg (27.0-31.0); Mean Corpuscular Volume 90.1 fL (81.0-99.0); Mean Platelet Volume 9.7 fL (7.4-10.4); Nucleated Red Blood Cells % 0 %; Platelet Count 141 10^3/uL (130-400); Red Blood Cell Count 4.14 10^6/uL (4.20-5.40); Red Cell Dist. Width 15.1 % (11.5-14.5); White Blood Cell Count 3.1 10^3/uL (4.8-10.8)
[2024-05-22 12:39] LABS: ALT (SGPT) 34 U/L (0-35); AST (SGOT) 43 U/L (14-36); Albumin 4.2 g/dl (3.5-5.0); Alkaline Phosphatase 65 U/L (38-126); Blood Urea Nitrogen 19 mg/dl (7-17); Calcium 9.3 mg/dl (8.4-10.2); Carbon Dioxide 28 mmol/L (22-30); Chloride 104 mmol/L (98-107); Glucose 105 mg/dl (70-99); Potassium 4.1 mmol/L (3.5-5.1); Sodium 143 mmol/L (135-145); Total Bilirubin 1.3 mg/dl (0.2-1.3); Total Protein 7.5 g/dl (6.3-8.2); eGFR > 60.00
== END ==
LOC: REG 09:22
PROVIDERS: ATTENDING PHYSICIAN Internal Medicine Hematology & Oncology; FAMILY PHYSICIAN Physician Assistant Medical
DX: D72.819 Decreased white blood cell count, unspecified (principal); D46.9 Myelodysplastic syndrome, unspecified; C91.Z0 Other lymphoid leukemia not having achieved remission; C49.A2 Gastrointestinal stromal tumor of stomach
CPT/HCPCS: 36415; 80053; 85025

== ENCOUNTER → 2024-06-12 13:28 | Outpatient (REF) | payer OTHER, SELFPAY ==
[2024-06-12 14:23] LABS: % Basophils 0.6 % (0-2); % Immature Granulocytes 0.3 % (0-0.5); % Lymphocytes 38.9 % (20.5-51.1); % Monocytes 17.7 % (1.7-9.3); % Neutrophils 42.5 % (42.2-75.2); Absolute Lymphocytes 1.3 10^3/uL (1.2-3.4); Absolute Monocytes 0.6 10^3/uL (0.1-0.6); Absolute Neutrophils 1.4 10^3/uL (1.4-6.5); Hematocrit 34.5 % (37.0-47.0); Hemoglobin 11.6 g/dL (12.0-16.0); Mean Corp Hgb Conc. 33.6 g/dL (33.0-37.0); Mean Corpuscular Hgb 29.4 pg (27.0-31.0); Mean Corpuscular Volume 87.3 fL (81.0-99.0); Mean Platelet Volume 9.9 fL (7.4-10.4); Nucleated Red Blood Cells % 0 %; Platelet Count 142 10^3/uL (130-400); Red Blood Cell Count 3.95 10^6/uL (4.20-5.40); Red Cell Dist. Width 15.2 % (11.5-14.5); White Blood Cell Count 3.4 10^3/uL (4.8-10.8)
[2024-06-12 14:49] LABS: ALT (SGPT) 25 U/L (0-35); AST (SGOT) 34 U/L (14-36); Albumin 4.4 g/dl (3.5-5.0); Alkaline Phosphatase 57 U/L (38-126); Blood Urea Nitrogen 22 mg/dl (7-17); Calcium 9.4 mg/dl (8.4-10.2); Carbon Dioxide 32 mmol/L (22-30); Chloride 99 mmol/L (98-107); Glucose 81 mg/dl (70-99); Sodium 137 mmol/L (135-145); Total Protein 7.6 g/dl (6.3-8.2); eGFR > 60.00
== END ==
LOC: REG 13:28
PROVIDERS: ATTENDING PHYSICIAN Internal Medicine Hematology & Oncology; FAMILY PHYSICIAN Physician Assistant Medical
DX: D72.819 Decreased white blood cell count, unspecified (principal); D46.9 Myelodysplastic syndrome, unspecified; C91.Z0 Other lymphoid leukemia not having achieved remission; C49.A2 Gastrointestinal stromal tumor of stomach
CPT/HCPCS: 36415; 80053; 85025

== ENCOUNTER → 2024-07-03 14:33 | Outpatient (REF) | payer OTHER, SELFPAY ==
[2024-07-03 15:47] LABS: % Basophils 0.8 % (0-2); % Lymphocytes 44.2 % (20.5-51.1); % Monocytes 14.9 % (1.7-9.3); % Neutrophils 40.1 % (42.2-75.2); Absolute Lymphocytes 1.1 10^3/uL (1.2-3.4); Absolute Monocytes 0.4 10^3/uL (0.1-0.6); Hematocrit 32.9 % (37.0-47.0); Mean Corp Hgb Conc. 33.4 g/dL (33.0-37.0); Mean Corpuscular Hgb 29.3 pg (27.0-31.0); Mean Corpuscular Volume 87.5 fL (81.0-99.0); Mean Platelet Volume 9.8 fL (7.4-10.4); Nucleated Red Blood Cells % 0 %; Platelet Count 128 10^3/uL (130-400); Red Blood Cell Count 3.76 10^6/uL (4.20-5.40); Red Cell Dist. Width 15.6 % (11.5-14.5); White Blood Cell Count 2.5 10^3/uL (4.8-10.8)
[2024-07-03 16:07] LABS: ALT (SGPT) 31 U/L (0-35); AST (SGOT) 41 U/L (14-36); Albumin 4.4 g/dl (3.5-5.0); Alkaline Phosphatase 76 U/L (38-126); Blood Urea Nitrogen 25 mg/dl (7-17); Calcium 9.6 mg/dl (8.4-10.2); Carbon Dioxide 29 mmol/L (22-30); Chloride 101 mmol/L (98-107); Glucose 102 mg/dl (70-99); Potassium 4.3 mmol/L (3.5-5.1); Sodium 139 mmol/L (135-145); Total Bilirubin 1.3 mg/dl (0.2-1.3); Total Protein 7.8 g/dl (6.3-8.2); eGFR > 60.00
== END ==
LOC: REG 14:33
PROVIDERS: ATTENDING PHYSICIAN Internal Medicine Hematology & Oncology; FAMILY PHYSICIAN Physician Assistant Medical
DX: D72.819 Decreased white blood cell count, unspecified (principal); D46.9 Myelodysplastic syndrome, unspecified; C91.Z0 Other lymphoid leukemia not having achieved remission; C49.A2 Gastrointestinal stromal tumor of stomach
CPT/HCPCS: 36415; 80053; 85025

== ENCOUNTER → 2024-07-24 13:26 | Outpatient (REF) | payer OTHER, SELFPAY ==
[2024-07-24 14:36] LABS: % Basophils 0.6 % (0-2); % Immature Granulocytes 0.3 % (0-0.5); % Lymphocytes 33.8 % (20.5-51.1); % Monocytes 14.9 % (1.7-9.3); % Neutrophils 50.4 % (42.2-75.2); Absolute Monocytes 0.5 10^3/uL (0.1-0.6); Absolute Neutrophils 1.6 10^3/uL (1.4-6.5); Hemoglobin 10.9 g/dL (12.0-16.0); Mean Corpuscular Hgb 29.4 pg (27.0-31.0); Mean Corpuscular Volume 88.9 fL (81.0-99.0); Mean Platelet Volume 9.4 fL (7.4-10.4); Nucleated Red Blood Cells % 0 %; Platelet Count 138 10^3/uL (130-400); Red Blood Cell Count 3.71 10^6/uL (4.20-5.40); Red Cell Dist. Width 15.8 % (11.5-14.5); White Blood Cell Count 3.1 10^3/uL (4.8-10.8)
[2024-07-24 15:02] LABS: ALT (SGPT) 32 U/L (0-35); AST (SGOT) 36 U/L (14-36); Albumin 4.5 g/dl (3.5-5.0); Alkaline Phosphatase 65 U/L (38-126); Blood Urea Nitrogen 21 mg/dl (7-17); Calcium 9.5 mg/dl (8.4-10.2); Carbon Dioxide 31 mmol/L (22-30); Chloride 99 mmol/L (98-107); Glucose 97 mg/dl (70-99); Potassium 4.2 mmol/L (3.5-5.1); Sodium 138 mmol/L (135-145); Total Bilirubin 1.1 mg/dl (0.2-1.3); Total Protein 7.5 g/dl (6.3-8.2); eGFR > 60.00
== END ==
LOC: REG 13:26
PROVIDERS: ATTENDING PHYSICIAN Internal Medicine Hematology & Oncology
DX: D72.819 Decreased white blood cell count, unspecified (principal); D46.9 Myelodysplastic syndrome, unspecified; C91.Z0 Other lymphoid leukemia not having achieved remission; C49.A2 Gastrointestinal stromal tumor of stomach
CPT/HCPCS: 36415; 80053; 85025

== ENCOUNTER → 2024-08-14 13:00 | Outpatient (REF) | payer OTHER, SELFPAY ==
[2024-08-14 14:19] LABS: % Basophils 1.1 % (0-2); % Immature Granulocytes 0.4 % (0-0.5); % Lymphocytes 36.5 % (20.5-51.1); % Monocytes 19.6 % (1.7-9.3); % Neutrophils 42.4 % (42.2-75.2); Absolute Monocytes 0.5 10^3/uL (0.1-0.6); Absolute Neutrophils 1.2 10^3/uL (1.4-6.5); Hematocrit 34.4 % (37.0-47.0); Hemoglobin 11.4 g/dL (12.0-16.0); Mean Corp Hgb Conc. 33.1 g/dL (33.0-37.0); Mean Corpuscular Hgb 29.8 pg (27.0-31.0); Mean Corpuscular Volume 90.1 fL (81.0-99.0); Mean Platelet Volume 9.5 fL (7.4-10.4); Nucleated Red Blood Cells % 0 %; Platelet Count 137 10^3/uL (130-400); Red Blood Cell Count 3.82 10^6/uL (4.20-5.40); Red Cell Dist. Width 16.7 % (11.5-14.5); White Blood Cell Count 2.7 10^3/uL (4.8-10.8)
[2024-08-14 14:40] LABS: ALT (SGPT) 20 U/L (0-35); AST (SGOT) 32 U/L (14-36); Albumin 4.5 g/dl (3.5-5.0); Alkaline Phosphatase 72 U/L (38-126); Blood Urea Nitrogen 25 mg/dl (7-17); Carbon Dioxide 28 mmol/L (22-30); Chloride 99 mmol/L (98-107); Glucose 87 mg/dl (70-99); Sodium 137 mmol/L (135-145); Total Bilirubin 1.6 mg/dl (0.2-1.3); Total Protein 7.7 g/dl (6.3-8.2); eGFR > 60.00
== END ==
LOC: REG 13:00
PROVIDERS: ATTENDING PHYSICIAN Internal Medicine Hematology & Oncology; FAMILY PHYSICIAN Physician Assistant Medical
DX: D72.819 Decreased white blood cell count, unspecified (principal); D46.9 Myelodysplastic syndrome, unspecified; C91.Z0 Other lymphoid leukemia not having achieved remission; C49.A2 Gastrointestinal stromal tumor of stomach
CPT/HCPCS: 36415; 80053; 85025

== ENCOUNTER → 2024-08-25 12:24 | Outpatient (REF) | payer OTHER, SELFPAY | LOC: RAD 12:24 | PROVIDERS: ATTENDING PHYSICIAN Family Medicine; OTHER PHYSICIAN Internal Medicine Hematology & Oncology; OTHER PHYSICIAN Specialist | DX: M25.511 Pain in right shoulder (principal); M25.512 Pain in left shoulder; M25.551 Pain in right hip; D46.9 Myelodysplastic syndrome, unspecified; Z91.81 History of falling | CPT/HCPCS: 73030; 73522 ==

== ENCOUNTER → 2024-09-05 11:45 | Outpatient (REF) | payer OTHER, SELFPAY ==
[2024-09-05 12:49] LABS: ALT (SGPT) 20 U/L (0-35); AST (SGOT) 32 U/L (14-36); Albumin 4.3 g/dl (3.5-5.0); Alkaline Phosphatase 70 U/L (38-126); Blood Urea Nitrogen 19 mg/dl (7-17); Calcium 9.2 mg/dl (8.4-10.2); Carbon Dioxide 28 mmol/L (22-30); Chloride 101 mmol/L (98-107); Glucose 184 mg/dl (70-99); Potassium 3.9 mmol/L (3.5-5.1); Sodium 138 mmol/L (135-145); Total Bilirubin 1.8 mg/dl (0.2-1.3); Total Protein 7.3 g/dl (6.3-8.2); eGFR > 60.00
[2024-09-05 13:14] LABS: % Basophils 0.4 % (0-2); % Lymphocytes 36.1 % (20.5-51.1); % Monocytes 16.6 % (1.7-9.3); % Neutrophils 46.9 % (42.2-75.2); Absolute Lymphocytes 0.9 10^3/uL (1.2-3.4); Absolute Monocytes 0.4 10^3/uL (0.1-0.6); Absolute Neutrophils 1.1 10^3/uL (1.4-6.5); Hematocrit 33.1 % (37.0-47.0); Hemoglobin 11.2 g/dL (12.0-16.0); Mean Corp Hgb Conc. 33.8 g/dL (33.0-37.0); Mean Corpuscular Hgb 30.8 pg (27.0-31.0); Mean Corpuscular Volume 90.9 fL (81.0-99.0); Mean Platelet Volume 9.8 fL (7.4-10.4); Nucleated Red Blood Cells % 0 %; Platelet Count 125 10^3/uL (130-400); Red Blood Cell Count 3.64 10^6/uL (4.20-5.40); Red Cell Dist. Width 16.4 % (11.5-14.5); White Blood Cell Count 2.4 10^3/uL (4.8-10.8)
== END ==
LOC: REG 11:45
PROVIDERS: ATTENDING PHYSICIAN Internal Medicine Hematology & Oncology; FAMILY PHYSICIAN Physician Assistant Medical
DX: D72.819 Decreased white blood cell count, unspecified (principal); D46.9 Myelodysplastic syndrome, unspecified; C91.Z0 Other lymphoid leukemia not having achieved remission; C49.A2 Gastrointestinal stromal tumor of stomach
CPT/HCPCS: 36415; 80053; 85025

== ENCOUNTER → 2024-09-25 09:36 | Outpatient (REF) | payer OTHER, SELFPAY ==
[2024-09-25 10:30] LABS: Hematocrit 34.8 % (37.0-47.0); Hemoglobin 11.4 g/dL (12.0-16.0); Mean Corp Hgb Conc. 32.8 g/dL (33.0-37.0); Mean Corpuscular Hgb 29.6 pg (27.0-31.0); Mean Corpuscular Volume 90.4 fL (81.0-99.0); Mean Platelet Volume 9.7 fL (7.4-10.4); Platelet Count 136 10^3/uL (130-400); Red Blood Cell Count 3.85 10^6/uL (4.20-5.40); Red Cell Dist. Width 15.9 % (11.5-14.5)
[2024-09-25 11:02] LABS: Absolute Neutrophils -Man Diff 0.5 10^3/uL (1.4-6.5); Band Neutrophils 2 % (0-3); Lymphocytes 55 % (20-51); Monocytes 14 % (2-9); Segmented Neutrophils 28 % (42-75); White Blood Cell Count 1.9 10^3/uL (4.8-10.8)
[2024-09-25 11:03] LABS: Atypical Lymphocytes 1 %
[2024-09-25 11:04] LABS: Anisocytosis 1+; Hypochromasia 1+; Normal RBC Morphology No
[2024-09-25 11:05] LABS: Ovalocytes 1+; Polychromasia 1+; Total Cells Counted 100
[2024-09-25 11:06] LABS: Platelets Checked Yes
[2024-09-25 11:40] LABS: ALT (SGPT) 23 U/L (0-35); AST (SGOT) 35 U/L (14-36); Albumin 4.3 g/dl (3.5-5.0); Alkaline Phosphatase 70 U/L (38-126); Blood Urea Nitrogen 18 mg/dl (7-17); Calcium 9.4 mg/dl (8.4-10.2); Carbon Dioxide 31 mmol/L (22-30); Chloride 104 mmol/L (98-107); Glucose 103 mg/dl (70-99); Potassium 4.5 mmol/L (3.5-5.1); Sodium 143 mmol/L (135-145); Total Bilirubin 1.5 mg/dl (0.2-1.3); Total Protein 7.5 g/dl (6.3-8.2)
== END ==
LOC: REG 09:36
PROVIDERS: ATTENDING PHYSICIAN Internal Medicine Hematology & Oncology; FAMILY PHYSICIAN Physician Assistant Medical
DX: D72.819 Decreased white blood cell count, unspecified (principal); D46.9 Myelodysplastic syndrome, unspecified; C91.Z0 Other lymphoid leukemia not having achieved remission; C49.A2 Gastrointestinal stromal tumor of stomach
CPT/HCPCS: 36415; 80053; 85025

== ENCOUNTER → 2024-10-16 15:26 | Outpatient (REF) | payer OTHER, SELFPAY ==
[2024-10-16 16:42] LABS: ALT (SGPT) 17 U/L (0-35); AST (SGOT) 32 U/L (14-36); Albumin 4.3 g/dl (3.5-5.0); Alkaline Phosphatase 58 U/L (38-126); Blood Urea Nitrogen 16 mg/dl (7-17); Calcium 9.2 mg/dl (8.4-10.2); Carbon Dioxide 29 mmol/L (22-30); Chloride 103 mmol/L (98-107); Glucose 150 mg/dl (70-99); Potassium 4.1 mmol/L (3.5-5.1); Sodium 142 mmol/L (135-145); Total Bilirubin 1.3 mg/dl (0.2-1.3); Total Protein 7.2 g/dl (6.3-8.2); eGFR > 60.00
[2024-10-16 17:26] LABS: Atypical Lymphocytes 2 %; Band Neutrophils 0 % (0-3); Hematocrit 34.1 % (37.0-47.0); Lymphocytes 49 % (20-51); Mean Corp Hgb Conc. 32.3 g/dL (33.0-37.0); Mean Corpuscular Hgb 28.4 pg (27.0-31.0); Mean Corpuscular Volume 87.9 fL (81.0-99.0); Mean Platelet Volume 9.5 fL (7.4-10.4); Monocytes 23 % (2-9); Myelocytes 1 % (-); Platelet Count 158 10^3/uL (130-400); Red Blood Cell Count 3.88 10^6/uL (4.20-5.40); Red Cell Dist. Width 15.9 % (11.5-14.5); Segmented Neutrophils 25 % (42-75); White Blood Cell Count 1.8 10^3/uL (4.8-10.8)
[2024-10-16 17:27] LABS: Absolute Neutrophils -Man Diff 0.4 10^3/uL (1.4-6.5); Normal RBC Morphology Yes; Platelets Checked Yes; Total Cells Counted 100
== END ==
LOC: REG 15:26
PROVIDERS: ATTENDING PHYSICIAN Internal Medicine Hematology & Oncology; FAMILY PHYSICIAN Physician Assistant Medical
DX: D72.819 Decreased white blood cell count, unspecified (principal); D46.9 Myelodysplastic syndrome, unspecified; C91.Z0 Other lymphoid leukemia not having achieved remission; C49.A2 Gastrointestinal stromal tumor of stomach
CPT/HCPCS: 36415; 80053; 85025

== ENCOUNTER → 2024-10-20 14:49 | Outpatient (REF) | payer OTHER, SELFPAY ==
[2024-10-20 11:40] LABS: % Basophils 1.4 % (0-2); % Lymphocytes 59.6 % (20.5-51.1); % Monocytes 26.2 % (1.7-9.3); % Neutrophils 12.8 % (42.2-75.2); Absolute Lymphocytes 0.8 10^3/uL (1.2-3.4); Absolute Monocytes 0.4 10^3/uL (0.1-0.6); Hematocrit 36.5 % (37.0-47.0); Hemoglobin 11.9 g/dL (12.0-16.0); Mean Corp Hgb Conc. 32.6 g/dL (33.0-37.0); Mean Corpuscular Hgb 28.3 pg (27.0-31.0); Mean Corpuscular Volume 86.7 fL (81.0-99.0); Mean Platelet Volume 9.1 fL (7.4-10.4); Platelet Count 153 10^3/uL (130-400); Red Blood Cell Count 4.21 10^6/uL (4.20-5.40); Red Cell Dist. Width 15.9 % (11.5-14.5)
[2024-10-20 11:43] LABS: White Blood Cell Count 1.4 10^3/uL (4.8-10.8)
[2024-10-20 11:44] LABS: Absolute Neutrophils 0.2 10^3/uL (1.4-6.5)
== END ==
LOC: OIDL 14:49
PROVIDERS: ATTENDING PHYSICIAN Internal Medicine Hematology & Oncology
DX: D72.819 Decreased white blood cell count, unspecified (principal); D46.9 Myelodysplastic syndrome, unspecified; C91.Z0 Other lymphoid leukemia not having achieved remission; C49.A2 Gastrointestinal stromal tumor of stomach
CPT/HCPCS: 85025

== ENCOUNTER → 2024-10-26 09:07 | Outpatient (REF) | payer OTHER, SELFPAY ==
[2024-10-26] VITALS (8 sets, daily range): BP systolic 85–153; BP diastolic 66–80
[2024-10-26 09:37] LABS: Hematocrit 36.5 % (37.0-47.0); Hemoglobin 12.1 g/dL (12.0-16.0); Mean Corp Hgb Conc. 33.2 g/dL (33.0-37.0); Mean Corpuscular Hgb 28.2 pg (27.0-31.0); Mean Corpuscular Volume 85.1 fL (81.0-99.0); Mean Platelet Volume 9.8 fL (7.4-10.4); Platelet Count 138 10^3/uL (130-400); Red Blood Cell Count 4.29 10^6/uL (4.20-5.40); Red Cell Dist. Width 15.6 % (11.5-14.5); White Blood Cell Count 1.5 10^3/uL (4.8-10.8)
[2024-10-26 09:38] LABS: INR 1.11; PT 14.6 Sec (11.4-14.6)
[2024-10-26] MEDS: ATIVAN 0.5 MG IV (10:22)
[2024-10-26] MEDS: NSS (PRESERVATIVE FREE) 0.25 ML IV (10:22)
== END ==
LOC: RADI 09:07
PROVIDERS: ATTENDING PHYSICIAN Internal Medicine Hematology & Oncology; FAMILY PHYSICIAN Physician Assistant Medical
DX: D46.9 Myelodysplastic syndrome, unspecified (principal); D68.8 Other specified coagulation defects
CPT/HCPCS: 88305; 88311; 88312; 36415; 38222; 77012; 85027; 85610; 88313

== ENCOUNTER → 2024-11-06 15:11 | Outpatient (REF) | payer OTHER, SELFPAY ==
[2024-11-06 16:24] LABS: ALT (SGPT) 17 U/L (0-35); AST (SGOT) 27 U/L (14-36); Albumin 4.2 g/dl (3.5-5.0); Alkaline Phosphatase 63 U/L (38-126); Blood Urea Nitrogen 18 mg/dl (7-17); Calcium 9.2 mg/dl (8.4-10.2); Carbon Dioxide 31 mmol/L (22-30); Chloride 106 mmol/L (98-107); Glucose 122 mg/dl (70-99); Potassium 4.1 mmol/L (3.5-5.1); Sodium 141 mmol/L (135-145); Total Bilirubin 1.1 mg/dl (0.2-1.3); Total Protein 7.2 g/dl (6.3-8.2)
[2024-11-06 16:43] LABS: Hematocrit 33.9 % (37.0-47.0); Hemoglobin 11.1 g/dL (12.0-16.0); Mean Corp Hgb Conc. 32.7 g/dL (33.0-37.0); Mean Corpuscular Hgb 28.1 pg (27.0-31.0); Mean Corpuscular Volume 85.8 fL (81.0-99.0); Mean Platelet Volume 9.4 fL (7.4-10.4); Platelet Count 145 10^3/uL (130-400); Red Blood Cell Count 3.95 10^6/uL (4.20-5.40); Red Cell Dist. Width 15.5 % (11.5-14.5); White Blood Cell Count 2.5 10^3/uL (4.8-10.8)
[2024-11-06 16:44] LABS: Band Neutrophils 0 % (0-3); Lymphocytes 39 % (20-51); Monocytes 22 % (2-9); Segmented Neutrophils 39 % (42-75)
[2024-11-06 16:46] LABS: Anisocytosis 2+; Hypochromasia 1+; Macrocytosis 1+; Microcytosis 1+; Normal RBC Morphology No; Total Cells Counted 100
[2024-11-06 16:49] LABS: Platelets Checked Yes
[2024-11-06 17:12] LABS: Absolute Neutrophils -Man Diff 0.9 10^3/uL (1.4-6.5)
== END ==
LOC: REG 15:11
PROVIDERS: ATTENDING PHYSICIAN Internal Medicine Hematology & Oncology; FAMILY PHYSICIAN Physician Assistant Medical
DX: D72.819 Decreased white blood cell count, unspecified (principal); D46.9 Myelodysplastic syndrome, unspecified; C91.Z0 Other lymphoid leukemia not having achieved remission; C49.A2 Gastrointestinal stromal tumor of stomach
CPT/HCPCS: 36415; 80053; 85025

== ENCOUNTER → 2024-11-19 10:46 | Outpatient (REF) | payer OTHER, SELFPAY | LOC: RCS 10:46 | PROVIDERS: ATTENDING PHYSICIAN Student in an Organized Health Care Education/Training Program; FAMILY PHYSICIAN Physician Assistant Medical | DX: I10 Essential (primary) hypertension (principal); R01.1 Cardiac murmur, unspecified | CPT/HCPCS: 93306 ==

== ENCOUNTER → 2024-11-27 14:19 | Outpatient (REF) | payer OTHER, SELFPAY ==
[2024-11-27 15:36] LABS: ALT (SGPT) 19 U/L (0-35); AST (SGOT) 30 U/L (14-36); Albumin 4.3 g/dl (3.5-5.0); Alkaline Phosphatase 54 U/L (38-126); Blood Urea Nitrogen 15 mg/dl (7-17); Calcium 9.4 mg/dl (8.4-10.2); Carbon Dioxide 27 mmol/L (22-30); Chloride 107 mmol/L (98-107); Glucose 124 mg/dl (70-99); Potassium 4.1 mmol/L (3.5-5.1); Sodium 139 mmol/L (135-145); Total Bilirubin 1.3 mg/dl (0.2-1.3); Total Protein 7.3 g/dl (6.3-8.2); eGFR > 60.00
[2024-11-27 16:41] LABS: Hemoglobin 10.6 g/dL (12.0-16.0); Mean Corp Hgb Conc. 33.1 g/dL (33.0-37.0); Mean Corpuscular Hgb 27.7 pg (27.0-31.0); Mean Corpuscular Volume 83.6 fL (81.0-99.0); Platelet Count 127 10^3/uL (130-400); Red Blood Cell Count 3.83 10^6/uL (4.20-5.40); Red Cell Dist. Width 15.9 % (11.5-14.5)
[2024-11-27 16:43] LABS: Anisocytosis 1+; Band Neutrophils 0 % (0-3); Hypochromasia 1+; Lymphocytes 50 % (20-51); Monocytes 18 % (2-9); Normal RBC Morphology No; Ovalocytes 1+; Platelets Checked Yes; Polychromasia 1+; Segmented Neutrophils 32 % (42-75)
[2024-11-27 17:17] LABS: Absolute Neutrophils -Man Diff 0.6 10^3/uL (1.4-6.5); White Blood Cell Count 1.9 10^3/uL (4.8-10.8)
[2024-11-27 17:19] LABS: Total Cells Counted 100
== END ==
LOC: REG 14:19
PROVIDERS: ATTENDING PHYSICIAN Nurse Practitioner Adult Health; FAMILY PHYSICIAN Internal Medicine Hematology & Oncology
DX: D72.819 Decreased white blood cell count, unspecified (principal); D46.9 Myelodysplastic syndrome, unspecified; C91.Z0 Other lymphoid leukemia not having achieved remission; C49.A2 Gastrointestinal stromal tumor of stomach
CPT/HCPCS: 36415; 72202; 72220; 80053; 85025

== ENCOUNTER → 2024-12-18 15:09 | Outpatient (REF) | payer OTHER, SELFPAY ==
[2024-12-18 16:11] LABS: ALT (SGPT) 23 U/L (0-35); AST (SGOT) 38 U/L (14-36); Albumin 4.3 g/dl (3.5-5.0); Alkaline Phosphatase 60 U/L (38-126); Blood Urea Nitrogen 27 mg/dl (7-17); Calcium 9.3 mg/dl (8.4-10.2); Carbon Dioxide 28 mmol/L (22-30); Chloride 105 mmol/L (98-107); Glucose 105 mg/dl (70-99); Potassium 4.3 mmol/L (3.5-5.1); Sodium 141 mmol/L (135-145); Total Bilirubin 1.7 mg/dl (0.2-1.3); Total Protein 7.6 g/dl (6.3-8.2); eGFR > 60.00
[2024-12-18 18:41] LABS: Hematocrit 35.2 % (37.0-47.0); Hemoglobin 11.4 g/dL (12.0-16.0); Mean Corp Hgb Conc. 32.4 g/dL (33.0-37.0); Mean Corpuscular Volume 86.5 fL (81.0-99.0); Mean Platelet Volume 10.1 fL (7.4-10.4); Platelet Count 153 10^3/uL (130-400); Platelets Checked Yes; Red Blood Cell Count 4.07 10^6/uL (4.20-5.40); Red Cell Dist. Width 17.7 % (11.5-14.5); White Blood Cell Count 2.4 10^3/uL (4.8-10.8)
[2024-12-18 18:42] LABS: Absolute Neutrophils -Man Diff 0.8 10^3/uL (1.4-6.5); Band Neutrophils 2 % (0-3); Segmented Neutrophils 32 % (42-75)
[2024-12-18 18:43] LABS: Atypical Lymphocytes 3 %; Lymphocytes 50 % (20-51); Monocytes 12 % (2-9); Myelocytes 1 % (-)
[2024-12-18 18:44] LABS: Anisocytosis 1+; Hypochromasia 1+; Macrocytosis 1+; Microcytosis 1+; Ovalocytes 1+; Polychromasia 1+; Total Cells Counted 100
[2024-12-18 18:50] LABS: Normal RBC Morphology No
== END ==
LOC: REG 15:09
PROVIDERS: ATTENDING PHYSICIAN Internal Medicine Hematology & Oncology
DX: D72.819 Decreased white blood cell count, unspecified (principal); D46.9 Myelodysplastic syndrome, unspecified; C91.Z0 Other lymphoid leukemia not having achieved remission; C49.A2 Gastrointestinal stromal tumor of stomach
CPT/HCPCS: 36415; 80053; 85025

== ENCOUNTER → 2025-01-08 11:09 | Outpatient (REF) | payer OTHER, SELFPAY ==
[2025-01-08 12:17] LABS: ALT (SGPT) 22 U/L (0-35); AST (SGOT) 34 U/L (14-36); Albumin 4.2 g/dl (3.5-5.0); Alkaline Phosphatase 57 U/L (38-126); Blood Urea Nitrogen 15 mg/dl (7-17); Calcium 9.5 mg/dl (8.4-10.2); Carbon Dioxide 28 mmol/L (22-30); Chloride 106 mmol/L (98-107); Glucose 97 mg/dl (70-99); Potassium 4.2 mmol/L (3.5-5.1); Sodium 141 mmol/L (135-145); Total Protein 7.3 g/dl (6.3-8.2); eGFR > 60.00
[2025-01-08 12:22] LABS: Hematocrit 34.0 % (37.0-47.0); Hemoglobin 11.1 g/dL (12.0-16.0); Mean Corp Hgb Conc. 32.6 g/dL (33.0-37.0); Mean Corpuscular Volume 87.6 fL (81.0-99.0); Platelet Count 119 10^3/uL (130-400); Red Cell Dist. Width 16.6 % (11.5-14.5)
[2025-01-08 12:53] LABS: Absolute Neutrophils -Man Diff 0.6 10^3/uL (1.4-6.5); Platelets Checked Yes
[2025-01-08 12:54] LABS: Normal RBC Morphology Yes; Total Cells Counted 100
== END ==
LOC: REG 11:09
PROVIDERS: ATTENDING PHYSICIAN Internal Medicine Hematology & Oncology; FAMILY PHYSICIAN Physician Assistant Medical
DX: D72.819 Decreased white blood cell count, unspecified (principal); D46.9 Myelodysplastic syndrome, unspecified; C91.Z0 Other lymphoid leukemia not having achieved remission; C49.A2 Gastrointestinal stromal tumor of stomach
CPT/HCPCS: 36415; 80053; 85025

== ENCOUNTER → 2025-01-29 14:33 | Outpatient (REF) | payer OTHER, SELFPAY ==
[2025-01-29 16:00] LABS: Platelets Checked Yes
[2025-01-29 16:01] LABS: Normal RBC Morphology Yes; Total Cells Counted 100
[2025-01-29 16:02] LABS: Hematocrit 32.0 % (37.0-47.0); Hemoglobin 10.7 g/dL (12.0-16.0); Mean Corp Hgb Conc. 33.4 g/dL (33.0-37.0); Mean Corpuscular Volume 87.2 fL (81.0-99.0); Platelet Count 142 10^3/uL (130-400); Red Cell Dist. Width 16.4 % (11.5-14.5)
[2025-01-29 16:14] LABS: ALT (SGPT) 19 U/L (0-35); AST (SGOT) 29 U/L (14-36); Albumin 4.1 g/dl (3.5-5.0); Alkaline Phosphatase 57 U/L (38-126); Blood Urea Nitrogen 18 mg/dl (7-17); Calcium 9.3 mg/dl (8.4-10.2); Carbon Dioxide 27 mmol/L (22-30); Chloride 106 mmol/L (98-107); Glucose 137 mg/dl (70-99); Potassium 3.9 mmol/L (3.5-5.1); Sodium 138 mmol/L (135-145); Total Protein 7.3 g/dl (6.3-8.2); eGFR > 60.00
[2025-01-29 16:19] LABS: Absolute Neutrophils -Man Diff 0.4 10^3/uL (1.4-6.5)
== END ==
LOC: REG 14:33
PROVIDERS: ATTENDING PHYSICIAN Internal Medicine Hematology & Oncology; FAMILY PHYSICIAN Physician Assistant Medical
DX: D72.819 Decreased white blood cell count, unspecified (principal); D46.9 Myelodysplastic syndrome, unspecified; C91.Z0 Other lymphoid leukemia not having achieved remission; C49.A2 Gastrointestinal stromal tumor of stomach
CPT/HCPCS: 36415; 80053; 85025

== ENCOUNTER → 2025-02-12 12:12 | Outpatient (REF) | payer OTHER, SELFPAY | LOC: RAD 12:12 | PROVIDERS: ATTENDING PHYSICIAN Surgery; FAMILY PHYSICIAN Physician Assistant Medical | DX: C49.A0 Gastrointestinal stromal tumor, unspecified site (principal) | CPT/HCPCS: 74177; Q9967 ==

== ENCOUNTER → 2025-02-19 11:48 | Outpatient (REF) | payer OTHER, SELFPAY ==
[2025-02-19 14:37] LABS: ALT (SGPT) 19 U/L (0-35); AST (SGOT) 32 U/L (14-36); Albumin 4.2 g/dl (3.5-5.0); Alkaline Phosphatase 52 U/L (38-126); Blood Urea Nitrogen 16 mg/dl (7-17); Calcium 9.0 mg/dl (8.4-10.2); Carbon Dioxide 30 mmol/L (22-30); Chloride 104 mmol/L (98-107); Glucose 122 mg/dl (70-99); Potassium 4.3 mmol/L (3.5-5.1); Sodium 141 mmol/L (135-145); Total Protein 7.3 g/dl (6.3-8.2); eGFR > 60.00
[2025-02-19 14:39] LABS: Hematocrit 35.3 % (37.0-47.0); Hemoglobin 11.4 g/dL (12.0-16.0); Mean Corp Hgb Conc. 32.3 g/dL (33.0-37.0); Mean Corpuscular Volume 89.1 fL (81.0-99.0); Nucleated Red Blood Cells % 0 %; Platelet Count 140 10^3/uL (130-400); Red Cell Dist. Width 16.4 % (11.5-14.5)
== END ==
LOC: REG 11:48
PROVIDERS: ATTENDING PHYSICIAN Internal Medicine Hematology & Oncology; FAMILY PHYSICIAN Physician Assistant Medical
DX: D72.819 Decreased white blood cell count, unspecified (principal); D46.9 Myelodysplastic syndrome, unspecified; C91.Z0 Other lymphoid leukemia not having achieved remission; C49.A2 Gastrointestinal stromal tumor of stomach
CPT/HCPCS: 36415; 80053; 85025

== ENCOUNTER → 2025-03-12 12:09 | Outpatient (REF) | payer OTHER, SELFPAY ==
[2025-03-12 13:33] LABS: Hematocrit 33.9 % (37.0-47.0); Hemoglobin 11.3 g/dL (12.0-16.0); Mean Corp Hgb Conc. 33.3 g/dL (33.0-37.0); Mean Corpuscular Volume 85.0 fL (81.0-99.0); Nucleated Red Blood Cells % 0 %; Platelet Count 147 10^3/uL (130-400); Red Cell Dist. Width 15.1 % (11.5-14.5)
[2025-03-12 15:21] LABS: ALT (SGPT) 20 U/L (0-35); AST (SGOT) 33 U/L (14-36); Albumin 4.3 g/dl (3.5-5.0); Alkaline Phosphatase 63 U/L (38-126); Blood Urea Nitrogen 14 mg/dl (7-17); Calcium 9.6 mg/dl (8.4-10.2); Carbon Dioxide 29 mmol/L (22-30); Chloride 106 mmol/L (98-107); Glucose 106 mg/dl (70-99); Potassium 4.3 mmol/L (3.5-5.1); Sodium 141 mmol/L (135-145); Total Protein 7.6 g/dl (6.3-8.2); eGFR > 60.00
== END ==
LOC: REG 12:09
PROVIDERS: ATTENDING PHYSICIAN Internal Medicine Hematology & Oncology; FAMILY PHYSICIAN Physician Assistant Medical
DX: D72.819 Decreased white blood cell count, unspecified (principal); D64.9 Anemia, unspecified; C91.Z0 Other lymphoid leukemia not having achieved remission; C49.A2 Gastrointestinal stromal tumor of stomach
CPT/HCPCS: 36415; 80053; 85025

== ENCOUNTER → 2025-04-02 11:35 | Outpatient (REF) | payer OTHER, SELFPAY ==
[2025-04-02 12:41] LABS: Hematocrit 33.3 % (37.0-47.0); Hemoglobin 10.9 g/dL (12.0-16.0); Mean Corp Hgb Conc. 32.7 g/dL (33.0-37.0); Mean Corpuscular Volume 87.6 fL (81.0-99.0); Platelet Count 130 10^3/uL (130-400); Red Cell Dist. Width 15.0 % (11.5-14.5)
[2025-04-02 13:28] LABS: ALT (SGPT) 32 U/L (0-35); AST (SGOT) 41 U/L (14-36); Albumin 4.3 g/dl (3.5-5.0); Alkaline Phosphatase 62 U/L (38-126); Blood Urea Nitrogen 14 mg/dl (7-17); Calcium 9.1 mg/dl (8.4-10.2); Carbon Dioxide 30 mmol/L (22-30); Chloride 104 mmol/L (98-107); Glucose 103 mg/dl (70-99); Potassium 4.2 mmol/L (3.5-5.1); Sodium 140 mmol/L (135-145); Total Protein 7.5 g/dl (6.3-8.2); eGFR > 60.00
[2025-04-02 13:29] LABS: Absolute Neutrophils -Man Diff 0.5 10^3/uL (1.4-6.5); Normal RBC Morphology Yes; Platelets Checked Yes; Total Cells Counted 100
== END ==
LOC: REG 11:35
PROVIDERS: ATTENDING PHYSICIAN Internal Medicine Hematology & Oncology; FAMILY PHYSICIAN Physician Assistant Medical
DX: D72.819 Decreased white blood cell count, unspecified (principal); D46.9 Myelodysplastic syndrome, unspecified; C91.Z0 Other lymphoid leukemia not having achieved remission; C49.A2 Gastrointestinal stromal tumor of stomach
CPT/HCPCS: 36415; 80053; 85025

== ENCOUNTER → 2025-04-23 15:13 | Outpatient (REF) | payer OTHER, SELFPAY ==
[2025-04-23 16:06] LABS: Hematocrit 34.9 % (37.0-47.0); Hemoglobin 11.5 g/dL (12.0-16.0); Mean Corp Hgb Conc. 33.0 g/dL (33.0-37.0); Mean Corpuscular Volume 87.0 fL (81.0-99.0); Nucleated Red Blood Cells % 0 %; Platelet Count 155 10^3/uL (130-400); Red Cell Dist. Width 16.5 % (11.5-14.5)
[2025-04-23 16:31] LABS: ALT (SGPT) 26 U/L (0-35); AST (SGOT) 37 U/L (14-36); Albumin 4.4 g/dl (3.5-5.0); Alkaline Phosphatase 64 U/L (38-126); Blood Urea Nitrogen 16 mg/dl (7-17); Calcium 9.4 mg/dl (8.4-10.2); Carbon Dioxide 32 mmol/L (22-30); Chloride 99 mmol/L (98-107); Glucose 117 mg/dl (70-99); Potassium 3.9 mmol/L (3.5-5.1); Sodium 136 mmol/L (135-145); Total Protein 7.9 g/dl (6.3-8.2); eGFR > 60.00
== END ==
LOC: REG 15:13
PROVIDERS: ATTENDING PHYSICIAN Internal Medicine Hematology & Oncology; FAMILY PHYSICIAN Physician Assistant Medical
DX: D72.819 Decreased white blood cell count, unspecified (principal); D46.9 Myelodysplastic syndrome, unspecified; C91.Z0 Other lymphoid leukemia not having achieved remission; C49.A2 Gastrointestinal stromal tumor of stomach
CPT/HCPCS: 36415; 80053; 85025

== ENCOUNTER 2025-05-11 11:54 | Inpatient (IN) | payer OTHER, SELFPAY ==
[2025-04-30 13:47] VITALS: BMI 26.1
[2025-05-11] VITALS (13 sets, daily range): BP systolic 118–156; BP diastolic 58–79; BMI 26.1
--- NOTE | 2025-05-11 07:07 | W.SUR.PREOP ---
Pre-Operative Surgical Note
-
I have examined this patient prior to the performance of the scheduled procedure.
The patient's condition is unchanged from the time of the current History and
Physical and the patient is able to undergo the scheduled procedure.
[2025-05-11] MEDS: TYLENOL 1000 MG PO (12:54)
[2025-05-11] MEDS: NORMOSOL-R/PLASMALYTE-A 1000 IV (12:54)
--- NOTE | 2025-05-11 13:59 | HP.FOC2 ---
Focused History & Physical
Chief Complaint
HPI:
Chief Complaint: Gastrointestinal stromal tumor
HPI / Indication for Planned Procedure: This is a an 85-year-old female who presents with an enlarging gastric mass concerning for a gastrointestinal stromal tumor. Will plan for a laparoscopic partial gastrectomy and EGD.
Relevant Past Medical History: Other (Myelodysplastic syndrome)
Relevant Social History: Negative
Relevant Family History: Negative
Relevant Past Surgical History: Positive for (Laparoscopic cholecystectomy, appendectomy)
Review of Systems
Review of Pertinent Systems: All Systems Negative
Medication
See Medication form for detailed medications: Yes
Medication List (including Herbals & OTC):
lovastatin 20 mg tablet 20 mg PO DAILY High Cholesterol 02/25/15
calcium 315 mg (as citrate)-vitamin D3 6.25 mcg (250 unit) tablet (Citracal + Vitamin D Maximum) 1 ea PO Daily Supplement 06/24/18
acetaminophen 500 mg capsule 500 mg PO Q6H PRN pain 10/26/24
amlodipine 2.5 mg tablet 2.5 mg PO BID 10/26/24
vitamin B complex 1 cap PO DAILY 10/26/24
Allergies and Reactions
Patient has Allergies: Yes
Noted Allergies and Reactions:
Allergy/AdvReac Type Severity Reaction Status Date / Time
morphine AdvReac projectile Verified 04/30/25 12:17
vomiting;just
didn't
feel right
Pertinent Physical Exam
All Other Systems: Negative
Head/Neck: Normal
Diagnosis / Assessment
This is a an 85-year-old female who presents with an enlarging gastric mass concerning for a gastrointestinal stromal tumor. Will plan for a laparoscopic partial gastrectomy and EGD.
Plan / Procedure
This is a an 85-year-old female who presents with an enlarging gastric mass concerning for a gastrointestinal stromal tumor. Will plan for a laparoscopic partial gastrectomy and EGD.
Anesthesia/Sedation to be done by Anesthesia Provider: Yes
--- NOTE | 2025-05-11 16:18 | W.IMMPOSTOP ---
Surgical Immed Post Op Note
-
Primary Surgeon: Moris Fofana MD
Assisting Surgeon: Alcides Chawla MD
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
Post-op Diagnosis: Same
Procedure Performed:
1. Laparoscopic partial gastrectomy, excision of a gastric mass
2. EGD
Anesthesia Type: General
Specimen / Cultures:
1. Gastric GIST
2. Gastrotomy/specimen margin (staple line helm lateral edge, sutures max specimen side)
Estimated Blood Loss: 7 cc
Complications: None
Operative Findings: We began by doing an upper endoscopy which confirmed a roughly 3 cm pedunculated intraluminal just along the greater curve. We then performed a laparoscopic partial gastrectomy by first taking down the gastrocolic ligament and
then using the endoscope confirm the location of the base of the mass. A gastrotomy was made in the base of the mass was excised circumferentially and the mass was removed and placed in a 10 mm Endo Catch bag. 3 stay sutures were then made along
our gastrotomy and used to align her stapler. The gastrotomy was closed with 2 fires of a 60 purple load on an Endo ERLINDA stapler and this was sent as an additional margin. The stomach was then insufflated once again using the endoscope and the area
of the staple line was flooded to confirm a airtight seal, or leak test was negative. The stomach was desufflated and the specimens and port sites were closed under direct visualization, the 12 mm port site was closed using 0 Maxon using a Vishal
Paredes device. The skin was closed with 4-0 Monocryl followed by Dermabond.
POST OP PLAN:
Imaging: None
Labs: Routine AM
Diet: Sips of clears, clears in the morning.
Analgesia: Liquid Tylenol, liquid oxycodone, morphine as needed
Neuro/vascular checks: Per unit protocol
AC/AP: Hold Therapeutic AC, Ok for DVT PPx, PPI
Activity: Ad Cony
Wound/Incisions/Drains: Routine
Abx: Will cover with Unasyn/Augmentin x 4 days.
Dispo: RNF, anticipate discharge on 05/13/2025 on a full liquid diet.
[2025-05-11] MEDS: DILAUDID 0.25 MG IV (16:44)
[2025-05-11] MEDS: DILAUDID 0.5 MG IV (17:13)
[2025-05-11] MEDS: UNASYN IV (18:09)
[2025-05-11] MEDS: LOVENOX 40 MG SC (18:09)
[2025-05-11] MEDS: PROTONIX 40 MG PO (18:10)
--- NOTE | 2025-05-11 18:28 | PTCARENOTE ---
1745 Pt arrived in bed from PACU. Pt AAOX3. VSS. 99% on 2LO2. 5 lap sites open to air with glue. Oriented to room and call proctor. bed locked and in lowest position
[2025-05-11] MEDS: TYLENOL 650 MG PO (19:46)
[2025-05-11] MEDS: ROXICODONE ORAL SOLUTION 5 MG PO (19:46)
[2025-05-11] MEDS: NORVASC 2.5 MG PO (19:47)
[2025-05-12] MEDS: TYLENOL 650 MG PO ×6 (00:15→20:40)
[2025-05-12] MEDS: UNASYN IV ×4 (00:15→17:19)
[2025-05-12 03:00] VITALS: BP 118/56
--- NOTE | 2025-05-12 03:33 | DOWNTIME ---
There was a [employer] Downtime on 05/12/2025 from 0100 to 05/12/2025 at 0255. Downtime documentation of patient's care, including medication administrations, has been reconciled in the electronic record per guidelines. Refer to the
patient's paper chart under the miscellaneous tab to see printed paper medication records and downtime forms.
[2025-05-12 06:42] LABS: Hematocrit 29.4 % (37.0-47.0); Hemoglobin 9.3 g/dL (12.0-16.0); Mean Corp Hgb Conc. 31.6 g/dL (33.0-37.0); Mean Corpuscular Volume 90.5 fL (81.0-99.0); Platelet Count 122 10^3/uL (130-400); Red Cell Dist. Width 16.6 % (11.5-14.5)
[2025-05-12 06:50] LABS: Blood Urea Nitrogen 13 mg/dl (7-17); Calcium 8.5 mg/dl (8.4-10.2); Carbon Dioxide 28 mmol/L (22-30); Chloride 102 mmol/L (98-107); Estimated Creatinine Clearance 38 ml/min; Glucose 147 mg/dl (70-99); Potassium 4.2 mmol/L (3.5-5.1); Sodium 138 mmol/L (135-145); eGFR > 60.00
[2025-05-12 07:20] VITALS: BP 127/62
[2025-05-12] MEDS: NORVASC 2.5 MG PO ×2 (08:29→20:40)
[2025-05-12] MEDS: PROTONIX 40 MG PO (08:30)
--- NOTE | 2025-05-12 10:02 | CON.ONC ---
Consultation
-
Date Consultation Requested: 05/12/25
Date Consultation Performed: 05/12/25
Requesting Provider: Dr. Méndez
Performing Provider: Oliva
Reason for Consultation: MDS
Impression
Impression
GIST tumor (suspected)
MDS
T LGL
Plan
Plan
Counts adequate s/p G-CSF..
S/P partial gastrectomy. Await Path.
F/U already scheduled with Dr. Case 06/09 to review.
Patient History
History of Present Illness
85-year-old female who presents with an enlarging gastric mass concerning for a gastrointestinal stromal tumor. Underwent a laparoscopic partial gastrectomy yesterday 05/[address] Méndez. Has underlying MDS and TLGL leukemia and is maintained on
luspatercept every 3 weeks. Received G-CSF x 3 days prior to surgery to optimize WBC count pre op. Doing well post op w/o fevers chills. ADC possibly tomorrow is surgery clears.
Past-Medical/Surgical History
Past Medical History
MDS
T LGL
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
mitral valve prolapse
HTN
osteoporosis
hypercholesterolemia
arthritis
Surgical History
oophorectomy
tubal ligation
appendectomy
rt/lt TKR
Social History
Patient denies ever using tobacco.
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
Marital Status: Patient is with 2 child/children.
lovastatin 20 mg tablet 20 mg PO DAILY High Cholesterol 02/25/15
calcium 315 mg (as citrate)-vitamin D3 6.25 mcg (250 unit) tablet (Citracal + Vitamin D Maximum) 1 ea PO Daily Supplement 06/24/18
acetaminophen 500 mg capsule 500 mg PO Q6H PRN pain 10/26/24
amlodipine 2.5 mg tablet 2.5 mg PO BID 10/26/24
vitamin B complex 1 cap PO DAILY 10/26/24
Patient Medication
�Medication �Instructions �Recorded �Confirmed �Last Taken �Type
lovastatin 20 mg tablet 20 mg PO DAILY High Cholesterol 02/25/15 05/11/25 05/10/25 22:00 History
calcium 315 mg (as 1 ea PO Daily Supplement 06/24/18 05/11/25 04/27/25 History
citrate)-vitamin D3 6.25 mcg (250
unit) tablet (Citracal + Vitamin D
Maximum)
acetaminophen 500 mg capsule 500 mg PO Q6H PRN pain 10/26/24 05/11/25 05/09/25 History
amlodipine 2.5 mg tablet 2.5 mg PO BID Blood Pressure 10/26/24 05/11/25 05/11/25 08:00 History
vitamin B complex 1 cap PO DAILY Supplement 10/26/24 05/11/25 04/27/25 History
Active Medications
Generic Name Dose Route Start Last Admin
Trade Name Freq PRN Reason Stop Dose Admin
Acetaminophen 650 mg 05/11/25 20:00 05/12/25 08:29
Acetaminophen 325 Mg Tablet PO 06/08/25 19:59 650 mg
Q4HWA ROSEMARY Administration
Amlodipine Besylate 2.5 mg 05/11/25 20:00 05/12/25 08:29
Amlodipine 2.5 Mg Tablet PO 06/08/25 19:59 2.5 mg
BID ROSEMARY Administration
Enoxaparin Sodium 40 mg 05/11/25 18:00 05/11/25 18:09
Enoxaparin Sodium 40 Mg/0.4 Ml Syringe SC 06/08/25 17:59 40 mg
QPM ROSEMARY Administration
Hydromorphone HCl 0.25 mg 05/11/25 16:55
Hydromorphone 0.25 Mg/0.5 Ml Syringe IV 05/25/25 16:54
Q2HPRN PRN
mild to moderate pain
Ampicillin Sodium/Sulbactam 60 mls @ 120 mls/hr 05/11/25 18:00 05/12/25 05:07
Sodium 1.5 gm/ Sodium Chloride IV 60 mls
Q6H ROSEMARY Administration
Ondansetron HCl 4 mg 05/11/25 16:49
Ondansetron 4 Mg/2 Ml Vial IV 06/08/25 16:48
Q6HPRN PRN
nausea\\vomiting
Oxycodone HCl 5 mg 05/11/25 16:49 05/11/25 19:46
Oxycodone Oral Solution (5 Mg/5 Ml) Cup PO 05/25/25 16:48 5 mg
Q4HPRN PRN Administration
Moderate pain
Pantoprazole Sodium 40 mg 05/11/25 17:00 05/12/25 08:30
Pantoprazole 40 Mg Delayed Release Tablet PO 06/08/25 16:59 40 mg
DAILY ROSEMARY Administration
Sodium Chloride 0 flush 05/11/25 17:00
Sodium Chloride 0.9% (Flush) Syringe IV 06/08/25 16:59
PER PROTOCOL ROSEMARY
Physical Exam
Labs
Lab Results
WBC 8.4 10^3/uL (4.8-10.8) 05/12/25 05:24
RBC 3.25 10^6/uL (4.20-5.40) L 05/12/25 05:24
Hgb 9.3 g/dL (12.0-16.0) L 05/12/25 05:24
Hct 29.4 % (37.0-47.0) L 05/12/25 05:24
MCV 90.5 fL (81.0-99.0) 05/12/25 05:24
MCH 28.6 pg (27.0-31.0) 05/12/25 05:24
MCHC 31.6 g/dL (33.0-37.0) L 05/12/25 05:24
RDW 16.6 % (11.5-14.5) H 05/12/25 05:24
Plt Count 122 10^3/uL (130-400) L 05/12/25 05:24
MPV 10.9 fL (7.4-10.4) H 05/12/25 05:24
Creatinine 0.9 mg/dL (0.6-1.0) 05/12/25 05:24
Vital Signs
Vital Signs
Temp Pulse Resp BP Pulse Ox
98.4 F 77 16 127/62 96
05/12/25 07:20 05/12/25 08:29 05/12/25 07:20 05/12/25 08:29 05/12/25 07:20
[2025-05-12 11:30] VITALS: BP 121/52
--- NOTE | 2025-05-12 11:56 | W.PN.GS2 ---
Today's Communication / Plan
-
Advance diet as tolerated
Dispo planning
Assessment / Plan
-
This is an 85-year-old female with a history of myelodysplastic syndrome, laparoscopic cholecystectomy unknown gastric GIST that has been increasing in size now POD #1 laparoscopic partial gastrectomy, EGD. Doing well, expected postoperative course.
Clear liquid diet, can advance to fulls once tolerating.
Can begin dispo planning.
Hemoglobin slightly down from baseline, patient did get G-CSF preoperatively and her white count is up appropriately.
Appreciate hematology input, no new recommendations.
Anticipate discharge tomorrow
Time Spent
Total Time Spent with Patient (in minutes): 10
Subjective Data
-
Date of Service: May 12, 2025
Interval Events:
No acute events overnight. Slept well. Pain Controlled. Denies Nausea/Vomiting, +bowel function. Tolerating diet.
Objective Data
-
Intake and Output
05/11/25 05/12/25 05/13/25
06:59 06:59 06:59
Intake Total 600 / 600 660 / 660
Output Total 100 / 100
Balance 500 / 500 660 / 660
Intake:
Oral fluids 480 / 480 660 / 660
IV piggybacks 120 / 120
Output:
Urine, Canas 100 / 100
Other:
Number of approximated MODERATE 2 1
amounts of urine
Number of approximated LARGE 1
amounts of urine
Vital Signs
Temp Pulse Resp BP Pulse Ox
98.8 F 67 16 121/52 96
05/12/25 11:30 05/12/25 11:30 05/12/25 11:30 05/12/25 11:30 05/12/25 11:30
Lab Results
05/12/25 05:24
05/12/25 05:24
Calcium 8.5 mg/dl (8.4-10.2) 05/12/25 05:24
Physical Exam
-
GENERAL/NEURO: Awake, Alert, no distress
CHEST: Unlabored breathing on RA
ABDOMEN: Soft, appropriately tender, Non-Distended, incisions clean dry and intact
Patient has a canas catheter: No
Patient has a central line: No
--- NOTE | 2025-05-12 11:59 | CM ---
CM following re: discharge planning.
Reviewed pt's chart, met with pt.
Pt is an 85 year old female, admitted with primary dx of POD #1 laparoscopic partial gastrectomy, EGD. Per Surgery, pt is doing well, expected postoperative course.
Pt reports she lives alone in a split level house, 4+7 steps to enter, has 2 supportive sons.
Pt reports she uses a cane, has a shower chair, known to [facility].
PT and OT will evaluate the pt to determine a level of care at discharge.
PCP: Abbey Donahue
Pharmacy: [facility]
D/c plan: most likely home with [facility] and family support. PT/OT to evaluate.
CM will follow with discharge plan updates as hospitalization progresses
[2025-05-12 15:20] VITALS: BP 116/69
[2025-05-12] MEDS: LOVENOX 40 MG SC (17:19)
[2025-05-12 23:03] VITALS: BP 114/48
[2025-05-13] MEDS: TYLENOL 650 MG PO ×3 (00:15→07:55)
[2025-05-13] MEDS: UNASYN IV ×2 (00:15→05:05)
[2025-05-13 06:26] LABS: Hematocrit 28.5 % (37.0-47.0); Hemoglobin 9.2 g/dL (12.0-16.0); Mean Corp Hgb Conc. 32.3 g/dL (33.0-37.0); Mean Corpuscular Volume 89.1 fL (81.0-99.0); Platelet Count 101 10^3/uL (130-400); Red Cell Dist. Width 16.7 % (11.5-14.5)
[2025-05-13] MEDS: PROTONIX 40 MG PO (07:55)
[2025-05-13] MEDS: NORVASC 2.5 MG PO (07:55)
[2025-05-13 08:00] VITALS: BP 128/72
--- NOTE | 2025-05-13 10:59 | W.PN.GS2 ---
Today's Communication / Plan
-
Dispo planning
Assessment / Plan
-
This is an 85-year-old female with a history of myelodysplastic syndrome, laparoscopic cholecystectomy unknown gastric GIST that has been increasing in size now POD #2 laparoscopic partial gastrectomy, EGD. Doing well, expected postoperative course.
Will DC home
Time Spent
Total Time Spent with Patient (in minutes): 15
Subjective Data
-
Date of Service: May 13, 2025
Interval Events:
No acute events overnight. Slept well. Pain Controlled. Denies Nausea/Vomiting, +bowel function. Tolerating diet.
Objective Data
-
Intake and Output
05/12/25 05/13/25 05/14/25
06:59 06:59 06:59
Intake Total 600 / 600 660 / 660 360 / 360
Output Total 100 / 100
Balance 500 / 500 660 / 660 360 / 360
Intake:
Oral fluids 480 / 480 660 / 660 240 / 240
IV piggybacks 120 / 120 120 / 120
Output:
Urine, Canas 100 / 100
Other:
Number of approximated MODERATE 2 1
amounts of urine
Number of approximated LARGE 1
amounts of urine
Vital Signs
Temp Pulse Resp BP Pulse Ox
99 F 70 16 128/72 97
05/13/25 08:00 05/13/25 08:00 05/13/25 08:00 05/13/25 08:00 05/13/25 08:47
Lab Results
05/13/25 05:22
05/12/25 05:24
Calcium 8.5 mg/dl (8.4-10.2) 05/12/25 05:24
Physical Exam
-
GENERAL/NEURO: Awake, Alert, no distress
CHEST: Unlabored breathing on RA
ABDOMEN: Soft, Non-Tender, Non-Distended, incisions clean dry and intact
Patient has a canas catheter: No
Patient has a central line: No
[2025-05-13 12:00] VITALS: BP 122/65
--- NOTE | 2025-05-13 12:18 | CM ---
CM following re: discharge planning.
Reviewed pt's chart, met with pt.
Discharge order noted. Pt is aware, expressed her agreement and pt stated her daughter is coming to transport home. IMM reviewed, pt stated she has fears to sign anything, has a copy, IMM form placed on chart.
Pt requested VN services and she preferred [facility]. Pt stated she had them in the [past. A referral to [facility] made.
Please fax discharge instructions to [facility] [phone]
D/c plan:L home with [facility] and family support. Daughter to transport.
--- NOTE | 2025-05-13 12:23 | VNURNOTE ---
Addendum entered by Linda Stacy RN 05/13/25 15:06:
Rec'ed update that [facility] can accept pt and will be able to see her over the weekend. Reached out to pt to notify her. No answer, left message. Referral for [facility] placed in [facility].
Original Note:
Home Health Liaison spoke with patient to discuss [facility] nurse/therapy, visits, schedule and homebound status. She is agreeable and understands that visits at home will be 2-3 x per week to assess and teach medical management. She is familiar with
[facility] services and is aware that [facility] will contact them for start of care within a week after discharge from . Daughters will be staying with her.
[facility] referral completed in [facility].
--- NOTE | 2025-05-14 13:19 | W.DCSUMMARY ---
Discharge Summary
Discharge Data
Date of Admission: 05/11/25
Date of Discharge: 05/13/25
-
Pending Results: No
Hospital Course
Ms Melendez is a 85-year-old with a history of MDS who presented with an enlarging gastric mass concerning for a gastrointestinal stromal tumor for surgical management with laparoscopic partial gastrectomy, excision of a gastric mass and EGD. She
tolerated the procedure well and diet was able to be slowly advanced and well tolerated prior to discharge. She had good pain control with oral agents. She was followed by hematology during her course of stay with outpatient follow up scheduled in
the coming weeks.
Discharge Plan
-
Patient Disposition: Home with Home Care
Discharge Diagnosis/Procedures: Gastric GIST. Laparoscopic partial gastrectomy
Condition: Good
Diet: Other diet
Activity: No strenuous activity
Driving Restrictions: As prior to admission
Bathing Restrictions: OK to Shower
Activity Restrictions/Additional Instructions:
Instructions following Laparoscopic partial gastrectomy
Please call [phone] if you have any questions or concerns after your surgery.
Wound Care:
Your incisions are covered with skin glue which will come off on its own in 5-10 days.
It is ok to shower the day after your surgery. Do not scrub the incisions, let soap and water wash over them and pat dry.
� Bruising around your incisions is normal.
� Using ice packs will help minimize this swelling.
� No swimming or soaking incisions for 1 week.
� Your stitches will dissolve and do not need to be removed.
Urinary retention:
If you are unable to urinate 6-8 hours after your surgery, please call [phone] to discuss further management.
Activity:
No heavy lifting more than 15 pounds for the next 3 weeks, then you may gradually lift heavier objects as tolerated by discomfort. Otherwise activity as tolerated by your comfort level.
Pain Management:
� You may take 650 milligrams of Tylenol (Max 3 grams per day) every 6 hours.
� You may take 600 milligrams of ibuprofen also every 6 hours. (you can alternate them every 3 hours)
� You may use an ice pack to your incision as needed.
� If you still have pain not controlled by these measures, take your prescription pain medication if prescribed.
Medications:
You may resume your home medications.
Bowel Medications:
Prescription pain medication can make you constipated. If you take this medication, also take colace 100 mg twice daily (this is over the counter). If this is not sufficient, you may take Miralax (polyethylene glycol) to help move your bowels.
Diet:
Full Liquid diet until 05/16/2025. Thereafter you can resume a regular diet, chew your food well
Foods and liquids allowed on the full liquid diet includes all foods allowed on the clear liquid diet (popsicles, clear juice without pulp, plain gelatin, ice chips, water, sweetened tea or coffee (no creamer), popsicles, clear broths, carbonated
beverages, flavored water and water) along with thin hot cereal (or gruel), strained cream soups, juices (including nectars), milkshakes, custard, puddings and liquid nutritional supplements.
You can not eat solid foods when you are on a full liquid diet
Driving restrictions:
No driving if you are taking prescription pain medication or if you think your normal reaction time and attentiveness has been slowed by your surgery.
Things to Look out for:
Worsening Abdominal pain, nausea/vomiting, redness or drainage from incision
Call Doctor for:
Please call if you notice worsening redness or drainage from incision(s) lasting longer than 5 days after your surgery, any foul-smelling drainage from the incision, pain not controlled by pain medications, persistent nausea and vomiting, or for any
fevers greater than 101.3 F. The number for questions/concerns is [phone]
Follow-up:
A follow-up appointment will be scheduled with your surgeon in 3-4 weeks. Please call prior to your appointment if you have any questions or concerns. [phone]
Referrals:
Abbey Kent PA-C [Family Provider, Family Practice]
Prescriptions:
New
amoxicillin-pot clavulanate 875-125 mg tablet
1 tab PO Q12 Qty: 4 0RF
Continued
lovastatin 20 MG tablet
20 mg PO DAILY
calcium citrate-vitamin D3 [Citracal + D Maximum] 1 EACH tablet
1 ea PO Daily
acetaminophen 500 mg Capsule
500 mg PO Q6H PRN (Reason: pain)
vitamin B complex Capsule
1 cap PO DAILY
amlodipine 2.5 mg tablet
2.5 mg PO BID
Discharge Orders:
Discharge Patient (As Directed); Ordered 05/13/25
Ordered By: Moris Fofana
Discharge Date and Time
Discharge Date/Time: 05/13/25 13:31
Print Language: KHMER
--- NOTE | 2025-05-17 11:45 | OR.RPT ---
Operative Report
Operative Report
Patient Name: Rufina Melendez
: 1940
Date of Operation: 05/11/2025
Preoperative Diagnosis: Gastric GIST (gastrointestinal stromal tumor)
Postoperative Diagnosis: Same
Procedure(s):
1. Laparoscopic partial gastrectomy, excision of a gastric mass
2. EGD
Surgeon(s):
Dr. Fofana
Chief Guard(s):
Alcides Chawla MD
Tania Merchant NP
Anesthesia: General
Estimated Blood Loss: 7 cc
Urine Output: None
Drains/Lines/Implants: None
Specimens:
1. Gastric GIST
2. Gastrotomy/specimen margin (staple line helm lateral edge, sutures max specimen side)
HPI/Surgical Indications:
This is an 85 year old female who presents for surgical removal of a known enlarging gastric mass, biopsy proven GIST. Risks/Benefits/Alternatives were discussed at length, and the patient agreed to proceed with surgery.
Operative Findings: We began by doing an upper endoscopy which confirmed a roughly 3 cm pedunculated intraluminal mass along the greater curve, far enough from the gastroesophageal junction/cardia. We then performed a laparoscopic partial
gastrectomy by first taking down the gastrocolic ligament and then using the endoscope confirm the location of the base of the mass. A gastrotomy was made in the base of the mass was excised circumferentially and the mass was removed and placed in
a 10 mm Endo Catch bag. 3 stay sutures were then made along our gastrotomy and used to align her stapler. The gastrotomy was closed with 2 fires of a 60 purple load on an Endo ERLINDA stapler and this was sent as an additional margin. The stomach was
then insufflated once again using the endoscope and the area of the staple line was flooded to confirm a airtight seal, or leak test was negative. The stomach was desufflated and the specimens and port sites were closed under direct visualization,
the 12 mm port site was closed using 0 Maxon using a Vishal Paredes device. The skin was closed with 4-0 Monocryl followed by Dermabond.
Procedure Description:
The patient was brought to the Operating Room and placed in the supine position with the arms tucked in the split leg position. IV antibiotics were infused and Venodyne stockings placed. Following uneventful induction of general endotracheal
anesthesia, a 16 [place] Douglas catheter was placed. A timeout was performed. I began by performing an upper endoscopy which confirmed a roughly 3 cm pedunculated intraluminal mass along the greater curve, far away from the gastroesophageal
junction/cardia the stomach was desufflated and partially withdrawn. The abdomen was prepped and draped in the usual sterile fashion. The abdomen was entered using a left subcostal Veress which required a single pass followed by a 5 mm Optiview
entry in the right upper quadrant. Pneumoperitoneum to 15 mmHg pressure was obtained without difficulty and we confirmed that no injury had occurred during our entry. We then placed two 5 mm trocars in the right upper and left upper quadrants.
Using the harmonic ultrasonic scalpel, the greater curve and part of the short gastrics was taken down and the lesser sac was entered to ensure that there was no extension of the mass beyond the confines of the stomach. At this point Dr. Chawla
manipulated the endoscope to help insufflate the stomach and help us identify the exact site of the mass with both endoscopic and laparoscopic visualization. A gastrotomy was then intentionally made near the base of the mass and was excised
circumferentially. The right upper quadrant port was upsized to a 12 mm port and a 10 mm Endo Catch bag was used to capture the specimen. 3 stay sutures were then made along our gastrotomy and used to align the stapler. The gastrotomy was closed
with 2 fires of a 60 purple load on an Endo ERLINDA stapler. This was sent as an additional margin. Dr. Chawla then reinsufflated the stomach and a leak test was performed which was negative. The stomach was desufflated and the specimens were
removed. The 12 mm port site was closed using a 0 Maxon using a Vishal Paredes device. The remainder of the ports were removed under direct visualization. All port sites were closed with 4-0 Monocryl followed by glue. The Douglas catheter was
removed at the end of the case. Overall, the patient tolerated the procedure well and was taken to the Recovery Room postoperatively in stable condition.
I was the attending physician and performed the procedure with assistance of the GRINDER OPERATOR SURFACE TOOL above. The assistance of the GRINDER OPERATOR SURFACE TOOL was required due to the complexity of the procedure. During the procedure Laura assisted with port placement, tissue retraction,
resection, and closure of the wound. Dr. Chawla was needed to manipulate the endoscope for visualization of the mass and performing the leak test. Without his assistance, this procedure would have taken a significantly longer amount of time to
complete. I was present for all portions of the case, excluding skin closure.
Moris Fofana MD
== END 2025-05-13 13:31 | disposition home health service (06) | DRG 327 ==
LOC: 2 SOUTH 11:54
PROVIDERS: ADMITTING PHYSICIAN Surgery; FAMILY PHYSICIAN Physician Assistant Medical; OTHER PHYSICIAN Internal Medicine Hematology & Oncology
PROC: 0DB64ZZ Excision of Stomach, Percutaneous Endoscopic Approach (ICD-10-PCS; 2025-05-11)
DX: C49.A2 Gastrointestinal stromal tumor of stomach (principal); C95.90 Leukemia, unspecified not having achieved remission; E78.00 Pure hypercholesterolemia, unspecified; I10 Essential (primary) hypertension; M81.0 Age-related osteoporosis without current pathological fracture; Z79.899 Other long term (current) drug therapy; Z88.5 Allergy status to narcotic agent; D46.9 Myelodysplastic syndrome, unspecified
CPT/HCPCS: 36415; 80048; 85027; 88307; 88309; 93005

== ENCOUNTER → 2025-05-22 11:18 | Outpatient (REF) | payer OTHER, SELFPAY ==
[2025-05-22 12:21] LABS: Hematocrit 31.6 % (37.0-47.0); Hemoglobin 10.3 g/dL (12.0-16.0); Mean Corp Hgb Conc. 32.6 g/dL (33.0-37.0); Mean Corpuscular Volume 90.3 fL (81.0-99.0); Nucleated Red Blood Cells % 0 %; Platelet Count 138 10^3/uL (130-400); Red Cell Dist. Width 17.0 % (11.5-14.5)
[2025-05-22 12:42] LABS: ALT (SGPT) 21 U/L (0-35); AST (SGOT) 30 U/L (14-36); Albumin 4.1 g/dl (3.5-5.0); Alkaline Phosphatase 53 U/L (38-126); Blood Urea Nitrogen 13 mg/dl (7-17); Calcium 9.1 mg/dl (8.4-10.2); Carbon Dioxide 30 mmol/L (22-30); Chloride 102 mmol/L (98-107); Glucose 135 mg/dl (70-99); Potassium 4.0 mmol/L (3.5-5.1); Sodium 135 mmol/L (135-145); Total Protein 7.1 g/dl (6.3-8.2); eGFR > 60.00
== END ==
LOC: REG 11:18
PROVIDERS: ATTENDING PHYSICIAN Internal Medicine Hematology & Oncology; FAMILY PHYSICIAN Physician Assistant Medical
DX: D72.819 Decreased white blood cell count, unspecified (principal); D46.9 Myelodysplastic syndrome, unspecified; C91.Z0 Other lymphoid leukemia not having achieved remission; C49.A2 Gastrointestinal stromal tumor of stomach
CPT/HCPCS: 36415; 80053; 85025

== ENCOUNTER → 2025-06-11 15:11 | Outpatient (REF) | payer OTHER, SELFPAY ==
[2025-06-11 16:40] LABS: Hematocrit 35.7 % (37.0-47.0); Hemoglobin 11.6 g/dL (12.0-16.0); Mean Corp Hgb Conc. 32.5 g/dL (33.0-37.0); Mean Corpuscular Volume 88.6 fL (81.0-99.0); Nucleated Red Blood Cells % 0 %; Platelet Count 121 10^3/uL (130-400); Red Cell Dist. Width 16.2 % (11.5-14.5)
== END ==
LOC: REG 15:11
PROVIDERS: ATTENDING PHYSICIAN Internal Medicine Hematology & Oncology; FAMILY PHYSICIAN Physician Assistant Medical
DX: D72.819 Decreased white blood cell count, unspecified (principal); D46.9 Myelodysplastic syndrome, unspecified; C91.Z0 Other lymphoid leukemia not having achieved remission; C49.A2 Gastrointestinal stromal tumor of stomach
CPT/HCPCS: 36415; 85025